=== PATIENT | female | born 1950 | race Caucasian/White ===

== ENCOUNTER 2017-01-26 09:17 | Day surgery (SDC) | payer MEDICARE, OTHER ==
[2017-01-21 12:09] VITALS: BMI 19.3
[~2017-01-26 09:17] MED LIST: LACTATED RINGERS 1,000 ML IV SCH
[2017-01-26 10:53] VITALS: TEMP 98.6
[2017-01-26] MEDS ORDERED: LIDOCAINE 1% 20 ML VIAL (10MG/ML) FOR IV START INTRADERMA ONE (11:09)
[2017-01-26] MEDS ORDERED: LIDOCAINE 1% INJ 10MG/ML (20 ML MDV) ONE (11:30)
[2017-01-26] MEDS ORDERED: PROPOFOL 10 MG/ML 20 ML VIAL IV ONE (11:30)
--- NOTE | 2017-01-26 11:47 | P.PCN ---
Date of Procedure: 01/26/17 Preoperative Diagnosis: Postoperative Diagnosis: Procedure(s) Performed: BRIEF HISTORY: Patient is a 66-year-old pleasant white female, scheduled for an elective colonoscopy as a part of evaluation of prior history of colon polyps. Her last colonoscopy was 5 years ago at [facility]. PROCEDURE PERFORMED: Colonoscopy with biopsy. PREOPERATIVE DIAGNOSIS: History of colon polyps. IV sedation per Anesthesia. PROCEDURE: After informed consent was obtained, the patient, was brought into the endoscopy unit. IV sedation was administered by Anesthesia under continuous monitoring. Digital rectal examination was normal. Initially the Olympus CF- 160 flexible video colonoscope was then inserted in the rectum, gradually advanced into the cecum without any difficulty. Careful examination was performed as the scope was gradually being withdrawn. Ileocecal valve and the appendiceal orifice were visualized and appeared normal. Prep was excellent. Mucosa of the cecum, ascending colon, transverse colon, descending colon, sigmoid colon, and rectum appeared normal. A 5 mm polyp was noted in the proximal rectum which was removed by biopsy. Scattered sigmoid diverticulosis seen. Retroflexion was performed in the rectum and no lesions were seen. The patient tolerated the procedure well. IMPRESSION: 5 mm proximal rectal polyp status post removal by biopsy Scattered sigmoid diverticulosis RECOMMENDATIONS: Findings of this examination were discussed with the patient as well as her family. She was advised to follow with the biopsy results. If the biopsy shows a tubular adenoma she can have a repeat colonoscopy in 5 years. Implants: Indications for Procedure: Operative Findings: Description of Procedure:
[2017-01-26 12:38] VITALS: BP 145/89; PULSE 71; RESP 18
== END 2017-01-26 12:51 | disposition home or self-care (01) ==
LOC: ORWHC2ENDO 09:17
PROVIDERS: ATTEND Internal Medicine Gastroenterology
DX: Z12.11 Encounter for screening for malignant neoplasm of colon (principal); K62.1 Rectal polyp; K57.30 Diverticulosis of large intestine without perforation or abscess without bleeding; K21.9 Gastro-esophageal reflux disease without esophagitis; Z86.010 Personal history of colon polyps; J44.9 Chronic obstructive pulmonary disease, unspecified; F17.200 Nicotine dependence, unspecified, uncomplicated; Z79.1 Long term (current) use of non-steroidal anti-inflammatories (NSAID); Z79.51 Long term (current) use of inhaled steroids; Z79.899 Other long term (current) drug therapy; Z88.2 Allergy status to sulfonamides; Z88.8 Allergy status to other drugs, medicaments and biological substances
CPT/HCPCS: 45380; 88305

== ENCOUNTER 2018-06-03 18:54 | Inpatient (IN) | payer MEDICARE, OTHER ==
[2018-06-03] MEDS ORDERED: SODIUM CHLORIDE 0.9% 500 ML 500 ML IV STA (19:01)
[2018-06-03] MEDS ORDERED: IPRATROPIUM 0.5 MG/2.5 ML NEBU INHALATION STA (19:01)
[2018-06-03] MEDS ORDERED: methylPREDNISolone SOD SUCCI 125 MG/2 ML VIAL IV STA (19:01)
[2018-06-03] MEDS ORDERED: SODIUM CHLORIDE 0.9% 1,000 ML IV STA ×3 (19:01→19:45)
[2018-06-03] MEDS ORDERED: ALBUTEROL NEBULIZED 2.5 MG/3 ML INHALATION STA (19:01)
[2018-06-03] MEDS ORDERED: ACETAMINOPHEN TAB 500 MG TAB PO STA (19:12)
[2018-06-03] MEDS ORDERED: IBUPROFEN 800 MG TAB PO STA (19:12)
--- NOTE | 2018-06-03 19:22 | ED ---
Fever HPI - General Chief Complaint: Fever Stated Complaint: Fever, Sinus Time Seen by Provider: 06/03/18 19:00 Source: patient, RN notes reviewed, old records reviewed Mode of arrival: ambulatory Limitations: no limitations - History of Present Illness Initial Comments: This is a 68-year-old female the ER for not feeling well. Patient states she's had bodyaches and fever 2 days, deathly worse and today. She does have underlying history of COPD. Complaining about shortness of breath cough. Patient's main complaint is body aches shakes fevers and sweating. No known significant sick contacts or recent travel history. Patient did have an inpatient hospitalization last year for similar symptoms secondary to pneumonia. Patient denies chest pain no abdominal pain no nausea vomiting or diarrhea MD Complaint: fever, weakness -: days(s) Temperature Source: subjective Associated Symptoms: chills, myalgias, shortness of breath Treatments Prior to Arrival: none - Related Data Home Medications Medication Instructions Recorded Confirmed ALPRAZolam [Xanax] 0.25 tab PO BID PRN 05/31/14 06/03/18 Tiotropium 18 Mcg/Puff [Spiriva] 1 puff IN RT-DAILY 05/31/14 06/03/18 Albuterol Nebulized [Ventolin 2.5 mg INHALATION RT-Q6H 01/21/17 06/03/18 Nebulized] Albuterol Sulfate [Proair Hfa] 1 - 2 puff INHALATION RT-Q4H PRN 01/21/17 Alendronate Sodium [Fosamax] 70 mg PO MO 01/21/17 06/03/18 Fluticasone Nasal [place] [Flonase 2 spray EA NOSTRIL BID 01/21/17 06/03/18 Nasal [place]] Fluticasone/Salmeterol [Advair 1 puff INHALATION RT-BID 01/21/17 06/03/18 500-50 Diskus] Lipase/Protease/Amylase [Zenpep Dr 75,000 units PO DIRECTED 01/21/17 06/03/18 25,000 Units Capsule] Omeprazole [PriLOSEC] 20 mg PO AC-BID 01/21/17 06/03/18 Gabapentin [Neurontin] 100 mg PO BID 06/01/17 06/03/18 Aspirin 325 mg PO DAILY 06/03/18 06/03/18 Atorvastatin [Lipitor] 10 mg PO HS 06/03/18 06/03/18 Calcium Carbonate [Calcium] 600 mg PO DAILY 06/03/18 06/03/18 Cholecalciferol [Vitamin D3] 1,000 unit PO DAILY 06/03/18 06/03/18 Multivitamins, Thera [Multivitamin 1 tab PO DAILY 06/03/18 06/03/18 (formulary)] Naproxen Sodium [Aleve] 220 mg PO DAILY 06/03/18 06/03/18 Previous Rx's Medication Instructions Recorded predniSONE 10 mg PO DAILY 16 Days #40 tab 06/03/17 Allergies Allergy/AdvReac Type Severity Reaction Status Date / Time guaifenesin [From Robitussin] AdvReac Severe Anaphylaxis Verified 06/03/18 21:25 propoxyphene napsylate AdvReac Severe Swelling Verified 06/03/18 21:25 [From Darvocet-N] Sulfa (Sulfonamide AdvReac Severe Swelling Verified 06/03/18 21:25 Antibiotics) Review of Systems ROS Statement: Those systems with pertinent positive or pertinent negative responses have been documented in the HPI. ROS Other: All systems not noted in ROS Statement are negative. Past Medical History Past Medical History: COPD, Fibromyalgia, GERD/Reflux, Osteoarthritis (OA) Additional Past Medical History / Comment(s): DDD WITH BACK PAIN, PANCREATITIS, STATES abdominal ANEURYSM THAT THE DR IS MONITORING. , STATES EPISODE OF IRREGULAR HEART BEAT AT DRS OFFICE. History of Any Multi-Drug Resistant Organisms: None Reported Past Surgical History: Back Surgery, Hysterectomy, Orthopedic Surgery Additional Past Surgical History / Comment(s): CLAIRE CARPAL TUNNEL. Past Anesthesia/Blood Transfusion Reactions: No Reported Reaction, Motion Sickness Past Psychological History: Anxiety Smoking Status: Former smoker Past Alcohol Use History: None Reported Past Drug Use History: None Reported - Past Family History Mother Family Medical History: Deep Vein Thrombosis (DVT) Father Family Medical History: Congestive Heart Failure (CHF), Diabetes Mellitus General Exam Limitations: no limitations General appearance: alert, in no apparent distress Head exam: Present: atraumatic, normocephalic, normal inspection Eye exam: Present: normal appearance, PERRL, EOMI. Absent: scleral icterus, conjunctival injection, periorbital swelling ENT exam: Present: normal exam, mucous membranes moist Neck exam: Present: normal inspection. Absent: tenderness, meningismus, lymphadenopathy Respiratory exam: Present: normal lung sounds bilaterally, wheezes. Absent: respiratory distress, rales, rhonchi, stridor Cardiovascular Exam: Present: regular rate, normal rhythm, normal heart sounds. Absent: systolic murmur, diastolic murmur, rubs, gallop, clicks GI/Abdominal exam: Present: soft, normal bowel sounds. Absent: distended, tenderness, guarding, rebound, rigid Extremities exam: Present: normal inspection, full ROM, normal capillary refill. Absent: tenderness, pedal edema, joint swelling, calf tenderness Back exam: Present: normal inspection Neurological exam: Present: alert, oriented X3, CN II-XII intact Psychiatric exam: Present: normal affect, normal mood Skin exam: Present: warm, dry, intact, normal color. Absent: rash Course Vital Signs 06/03/18 06/03/18 06/03/18 18:57 19:30 19:38 Temperature 99.8 F H 102.3 F H Pulse Rate 70 111 H Pulse Rate [ Pulse Oximetery ] Respiratory 20 20 20 Rate Blood Pressure 115/67 118/57 Blood Pressure [Left Arm] O2 Sat by Pulse 95 93 L Oximetry 06/03/18 06/03/18 06/03/18 19:43 19:52 20:00 Temperature 98.5 F Pulse Rate 108 H Pulse Rate [ 113 H 116 H Pulse Oximetery ] Respiratory 16 16 Rate Blood Pressure Blood Pressure 102/63 [Left Arm] O2 Sat by Pulse 92 L Oximetry 06/03/18 20:05 Temperature Pulse Rate 110 H Pulse Rate [ Pulse Oximetery ] Respiratory Rate Blood Pressure Blood Pressure [Left Arm] O2 Sat by Pulse Oximetry - Reevaluation(s) Reevaluation #1: 06/03/18 19:22 Medical record is reviewed Reevaluation #2: 06/03/18 19:22 Patient is improved with symptomatic therapy Medical Decision Making - Medical Decision Making 68 female the ER with fever cough or congestion positive pneumonia, will admit for IV antibiotics breathing treatments and monitoring of cardiopulmonary state - Lab Data Result diagrams: 06/03/18 19:22 06/04/18 09:35 Lab Results 06/03/18 06/03/18 06/03/18 Range/Units 19:22 19:22 19:22 WBC 12.6 H (3.8-10.6) k/uL RBC 4.64 (3.80-5.40) m/uL Hgb 15.3 (11.4-16.0) gm/dL Hct 45.3 (34.0-46.0) % MCV 97.5 (80.0-100.0) fL MCH 33.0 (25.0-35.0) pg MCHC 33.8 (31.0-37.0) g/dL RDW 12.9 (11.5-15.5) % Plt Count 183 (150-450) k/uL Neutrophils % 83 % Lymphocytes % 10 % Monocytes % 5 % Eosinophils % 1 % Basophils % 0 % Neutrophils # 10.4 H (1.3-7.7) k/uL Lymphocytes # 1.2 (1.0-4.8) k/uL Monocytes # 0.6 (0-1.0) k/uL Eosinophils # 0.1 (0-0.7) k/uL Basophils # 0.0 (0-0.2) k/uL PT (9.0-12.0) sec INR (<1.2) APTT (22.0-30.0) sec Sodium 137 (137-145) mmol/L Potassium 4.3 (3.5-5.1) mmol/L Chloride 105 (98-107) mmol/L Carbon Dioxide 23 (22-30) mmol/L Anion Gap 9 mmol/L BUN 15 (7-17) mg/dL Creatinine 0.90 (0.52-1.04) mg/dL Est GFR (CKD-EPI)AfAm 77 (>60 ml/min/1.73 sqM) Est GFR (CKD-EPI)NonAf 67 (>60 ml/min/1.73 sqM) Glucose 120 H (74-99) mg/dL Plasma Lactic Acid Bebo (0.7-2.0) mmol/L Calcium 9.1 (8.4-10.2) mg/dL Magnesium 1.9 (1.6-2.3) mg/dL Total Bilirubin 1.4 H (0.2-1.3) mg/dL AST 90 H (14-36) U/L ALT 88 H (9-52) U/L Alkaline Phosphatase 140 H (38-126) U/L Total Creatine Kinase 50 (30-135) U/L CK-MB (CK-2) 0.3 (0.0-2.4) ng/mL CK-MB (CK-2) Rel Index 0.6 Troponin I <0.012 (0.000-0.034) ng/mL NT-Pro-B Natriuret Pep pg/mL Total Protein 6.5 (6.3-8.2) g/dL Albumin 3.6 (3.5-5.0) g/dL Influenza Type A RNA (Not Detectd) Influenza Type B (PCR) (Not Detectd) 06/03/18 06/03/18 06/03/18 Range/Units 19:22 19:22 19:22 WBC (3.8-10.6) k/uL RBC (3.80-5.40) m/uL Hgb (11.4-16.0) gm/dL Hct (34.0-46.0) % MCV (80.0-100.0) fL MCH (25.0-35.0) pg MCHC (31.0-37.0) g/dL RDW (11.5-15.5) % Plt Count (150-450) k/uL Neutrophils % % Lymphocytes % % Monocytes % % Eosinophils % % Basophils % % Neutrophils # (1.3-7.7) k/uL Lymphocytes # (1.0-4.8) k/uL Monocytes # (0-1.0) k/uL Eosinophils # (0-0.7) k/uL Basophils # (0-0.2) k/uL PT 10.5 (9.0-12.0) sec INR 1.0 (<1.2) APTT 24.8 (22.0-30.0) sec Sodium (137-145) mmol/L Potassium (3.5-5.1) mmol/L Chloride (98-107) mmol/L Carbon Dioxide (22-30) mmol/L Anion Gap mmol/L BUN (7-17) mg/dL Creatinine (0.52-1.04) mg/dL Est GFR (CKD-EPI)AfAm (>60 ml/min/1.73 sqM) Est GFR (CKD-EPI)NonAf (>60 ml/min/1.73 sqM) Glucose (74-99) mg/dL Plasma Lactic Acid Bebo 1.5 (0.7-2.0) mmol/L Calcium (8.4-10.2) mg/dL Magnesium (1.6-2.3) mg/dL Total Bilirubin (0.2-1.3) mg/dL AST (14-36) U/L ALT (9-52) U/L Alkaline Phosphatase (38-126) U/L Total Creatine Kinase (30-135) U/L CK-MB (CK-2) (0.0-2.4) ng/mL CK-MB (CK-2) Rel Index Troponin I (0.000-0.034) ng/mL NT-Pro-B Natriuret Pep 1830 pg/mL Total Protein (6.3-8.2) g/dL Albumin (3.5-5.0) g/dL Influenza Type A RNA (Not Detectd) Influenza Type B (PCR) (Not Detectd) 06/03/18 Range/Units 19:29 WBC (3.8-10.6) k/uL RBC (3.80-5.40) m/uL Hgb (11.4-16.0) gm/dL Hct (34.0-46.0) % MCV (80.0-100.0) fL MCH (25.0-35.0) pg MCHC (31.0-37.0) g/dL RDW (11.5-15.5) % Plt Count (150-450) k/uL Neutrophils % % Lymphocytes % % Monocytes % % Eosinophils % % Basophils % % Neutrophils # (1.3-7.7) k/uL Lymphocytes # (1.0-4.8) k/uL Monocytes # (0-1.0) k/uL Eosinophils # (0-0.7) k/uL Basophils # (0-0.2) k/uL PT (9.0-12.0) sec INR (<1.2) APTT (22.0-30.0) sec Sodium (137-145) mmol/L Potassium (3.5-5.1) mmol/L Chloride (98-107) mmol/L Carbon Dioxide (22-30) mmol/L Anion Gap mmol/L BUN (7-17) mg/dL Creatinine (0.52-1.04) mg/dL Est GFR (CKD-EPI)AfAm (>60 ml/min/1.73 sqM) Est GFR (CKD-EPI)NonAf (>60 ml/min/1.73 sqM) Glucose (74-99) mg/dL Plasma Lactic Acid Bebo (0.7-2.0) mmol/L Calcium (8.4-10.2) mg/dL Magnesium (1.6-2.3) mg/dL Total Bilirubin (0.2-1.3) mg/dL AST (14-36) U/L ALT (9-52) U/L Alkaline Phosphatase (38-126) U/L Total Creatine Kinase (30-135) U/L CK-MB (CK-2) (0.0-2.4) ng/mL CK-MB (CK-2) Rel Index Troponin I (0.000-0.034) ng/mL NT-Pro-B Natriuret Pep pg/mL Total Protein (6.3-8.2) g/dL Albumin (3.5-5.0) g/dL Influenza Type A RNA Not Detected (Not Detectd) Influenza Type B (PCR) Not Detected (Not Detectd) - EKG Data -: EKG Interpreted by Me (EKG shows sinus tachycardia rate 170, CO 182, QRS 86, QTc 488) - Radiology Data Radiology results: report reviewed (Chest x-ray is positive for pneumonia), image reviewed Critical Care Time Critical Care Time: Yes Total Critical Care Time: 31 Disposition Clinical Impression: COPD with acute exacerbation, Pneumonia, Fever Disposition: ADMITTED IP TO THIS HOSP Condition: Fair Is patient prescribed a controlled substance at d/c from ED?: No
[2018-06-03 19:31] LABS: Basophils % (A) 0 %; Eosinophils # (A) 0.1 k/uL (0-0.7); Eosinophils % (A) 1 %; HCT 45.3 % (34.0-46.0); HGB 15.3 gm/dL (11.4-16.0); Lymphocytes # (A) 1.2 k/uL (1.0-4.8); Lymphocytes % (A) 10 %; MCHC 33.8 g/dL (31.0-37.0); MCV 97.5 fL (80.0-100.0); Mean Platelet Volume 7.1; Monocytes # (A) 0.6 k/uL (0-1.0); Monocytes % (A) 5 %; Neutrophils # (A) 10.4 k/uL (1.3-7.7); Neutrophils % (A) 83 %; Platelet Count 183 k/uL (150-450); RBC 4.64 m/uL (3.80-5.40); RDW 12.9 % (11.5-15.5); WBC 12.6 k/uL (3.8-10.6)
[2018-06-03] MEDS ORDERED: PNEUMONIA PROTOCOL UTILIZED 1 EACH MISC PO PRN (19:43)
[2018-06-03] MEDS ORDERED: AZITHROMYCIN 500 MG in SODIUM CHLORIDE 0.9% 250 ML IVPB STA (19:43)
[2018-06-03 19:47] LABS: Partial Thromboplastin Time 24.8 sec (22.0-30.0); Prothrombin Time 10.5 sec (9.0-12.0)
[2018-06-03 19:49] LABS: Albumin 3.6 g/dL (3.5-5.0); Calcium 9.1 mg/dL (8.4-10.2); Creatine Kinase 50 U/L (30-135); Magnesium 1.9 mg/dL (1.6-2.3); Potassium 4.3 mmol/L (3.5-5.1); Total Bilirubin 1.4 mg/dL (0.2-1.3); Total Protein 6.5 g/dL (6.3-8.2)
[2018-06-03 20:01] LABS: Creatine Kinase MB 0.3 ng/mL (0.0-2.4); Troponin I <0.012 ng/mL (0.000-0.034)
--- NOTE | 2018-06-03 20:01 | XR ---
EXAMINATION TYPE: XR chest 1V portable DATE OF EXAM: 06/03/2018 COMPARISON: 06/10/2017 HISTORY: Short of breath TECHNIQUE: Single frontal view of the chest is obtained. FINDINGS: There is some patchy airspace infiltrate in the right lower lobe. There is coarse intersti tial infiltrate also a left lower lobe. There is no heart failure. There are chest leads. There is sl ight blunting of the costophrenic angles. IMPRESSION: There is new bilateral lower lobe pneumonia compared to old exam. This appears worse on the right side. Pleural reaction and fluid increased compared to old exam. No heart failure.
[2018-06-03] MEDS ORDERED: ALPRAZolam 0.25 MG TAB PO PRN (21:14)
[2018-06-03] MEDS ORDERED: ACETAMINOPHEN TAB 500 MG TAB PO PRN (21:22)
[2018-06-03 21:24] VITALS: BMI 18.6
--- NOTE | 2018-06-03 22:07 | HP ---
HISTORY AND PHYSICAL Mrs. Pierre is a 68-year-old female who over the last 24 hours has been increasingly feeling weak, feverishness, cough with some whitish yellow discolored phlegm, no hemoptysis, increasing shortness of breath also associated with this, some diffuse body aches and fevers also associated with this. The patient also states that a few days previously she fell and hurt her left chest wall and this continued to bother her breathing but did seem to get better until these new symptoms developed yesterday. No actual vomiting or diarrhea was noted, no angina type chest pain. The patient does have history of severe COPD and previous smoking. OTHER PAST MEDICAL HISTORY: As mentioned, positive for underlying COPD and previous smoking history. Apparently she has quit smoking about a year and a half ago. She also has history of hyperlipidemia. She has had osteoarthritis of the lumbar spine. Gastroesophageal reflux, osteoporosis, and anxiety. MEDICATION ALLERGIES: INCLUDE SULFA ANTIBIOTICS AND ROBITUSSIN WITH MUCINEX. HOME MEDICATIONS: 1. Include prednisone 10 mg daily. 2. Spiriva 18 mcg 1 puff daily. 3. Prilosec 20 mg twice a day. 4. Naproxen 220 mg daily. 5. Theragran multiple vitamin daily. 6. She is on Zenpep 87499 units capsules 3 capsules before meals. This contains lipase/protease/amylase for pancreatic insufficiency. 7. Neurontin 100 mg twice a day. 8. Advair 500-50 Diskus 1 inhalation twice a day. 9. Nasal spray Flonase 2 sprays in each nostril twice a day. 10.Vitamin D3 a 1000 units daily. 11.Calcium carbonate 600 mg daily. 12.Atorvastatin 10 mg q.h.s. 13.Aspirin 325 mg daily. 14.Fosamax 70 mg on Mondays. 15.ProAir 1-2 inhalations q.4-6 hours p.r.n. 16.Ventolin nebulized 2.5 mg q.6 hours. 17.Alprazolam 0.25 twice a day as needed for anxiety. REVIEW OF SYSTEMS: As mentioned in history of present illness. She denies any unusual visual disturbances. No problems with angina type chest pain. No new pleurisy type pains. No nausea, vomiting. No abdominal pain. No urinary or bowel symptoms. No unusual leg edema. SURGICAL HISTORY: She has had previous lumbar surgeries. Also she has had previous hysterectomy and bilateral carpal tunnel. FAMILY HISTORY: Positive for seizures in her brother and also diabetes in her mother and another brother. SOCIAL HISTORY: She is a former smoker. Lives locally in [place]. There is no history of any excessive alcohol usage. PHYSICAL EXAMINATION: She is lying on the stretcher in the emergency room. No acute distress, but appears somewhat anxious. VITAL SIGNS: Temperature of 99.3 with a pulse of 110, respirations of 22. Her initial pulse ox was low at 88 that has increased on nasal oxygen to 91. Head is atraumatic. Extraocular movements are intact. NECK: Supple. No adenopathy, thyromegaly detected. LUNGS: Diffuse rales and some inspiratory and expiratory diffuse wheezing. Heart tones revealed a regular rhythm. No definite murmurs. ABDOMEN: Soft and nontender. Extremities revealed no edema. Neurologically, she is alert and oriented. Cranial nerves intact. No focal weakness noted. LABORATORY TESTING: Revealed a white count of 12.6, hemoglobin of 15.3, and a platelet count of 183. Her INR was 1.0. Chemistries revealed a sodium 137, potassium 4.3, CO2 content of 23, BUN was 15 with a creatinine 0.9, giving her a GFR of 67. Blood sugar random was 120. Lactic acid level was 1.5. Total bilirubin was slightly elevated at 1.4 with an AST of 90 and ALT of 88, alkaline phosphatase was 140. Troponin was less than 0.012. BNP was 1830. Albumin 3.5. Influenza A and B were not detected. EKG shows a sinus tachycardia with fusion complexes, no definite acute ischemic changes, but some poor R waves in V2, V3, and the chest x-ray apparently shows new bilateral infiltrates consistent with pneumonia in the lower lobes. Apparently x-ray appeared worse on the right side. No definite CHF was noted on chest x-ray. IMPRESSION: 1. Bilateral basilar pneumonias with exacerbation of chronic obstructive pulmonary disease with hypoxia and acute on chronic respiratory failure in a patient who has severe underlying chronic obstructive pulmonary disease and previous smoking history. The patient also has elevated liver function test, actual etiology unknown at this time, could be related to underlying infection and pneumonia. The patient does have underlying osteoarthritis of the lumbar spine and previous surgery. 2. History of hyperlipidemia. 3. Gastroesophageal reflux. 4. Osteoporosis. 5. Pancreatic insufficiency by history, on enzyme replacement therapy. At this point, the plans are for initiation of antibiotics, respiratory treatments, corticosteroids, consultation with Pulmonary Medicine. Further recommendations and treatment pending clinical response and results of above as discussed with the patient and family at bedside. MMESTEPHANIEL / ESTEFANYN: [id number] / MTDMary
[2018-06-03] MEDS: SODIUM CHLORIDE 0.9% 1,000 ML IV SCH (22:22)
[2018-06-03 22:52] LABS: Appearance,Urine Clear (Clear); Bilirubin,Urine Negative (Negative); Blood,Urine Negative (Negative); Color,Urine Yellow; Glucose,Urine (UA) Negative (Negative); Ketones,Urine 1+ (Negative); Leukocyte Esterase,Urine Negative (Negative); Nitrite,Urine Negative (Negative); PH, Urine 5.5 (5.0-8.0); Protein,Urine Trace (Negative); Specific Gravity,Urine 1.007 (1.001-1.035); Urobilinogen,Urine <2.0 mg/dL (<2.0)
[2018-06-03] MEDS ORDERED: AZITHROMYCIN 500 MG in SODIUM CHLORIDE 0.9% 250 ML IVPB ONE (23:00)
[2018-06-04] MEDS: methylPREDNISolone SOD SUCCI 125 MG/2 ML VIAL IV SCH ×3 (00:30→16:29)
[2018-06-04] MEDS: PANTOPRAZOLE 40 MG TABLET PO SCH ×2 (06:59→16:30)
[2018-06-04] MEDS: SODIUM CHLORIDE 0.9% 1,000 ML IV SCH ×3 (07:01→20:43)
[2018-06-04] MEDS: IPRATROPIUM-ALBUTEROL 3 ML NEB INHALATION SCH ×5 (08:11→21:14)
--- NOTE | 2018-06-04 08:21 | US ---
EXAMINATION TYPE: US gallbladder DATE OF EXAM: 06/04/2018 COMPARISON: CXR, CT 2007 CLINICAL HISTORY: [facility]. Elevated LFT's EXAM MEASUREMENTS: Liver Length: 14.7 cm Gallbladder Wall: 0.2 cm CBD: 0.5 cm Right Kidney: 9.4 x 4.0 x 4.7 cm Pancreas: wnl Liver: wnl Gallbladder: Slightly contracted, pt states she is NPO Evidence for sonographic Guillermo's sign: No CBD: wnl Right Kidney: wnl, lower pole gassed out Incidental finding distal aorta AAA= 4.4 cm transverse measurement IMPRESSION: Abdominal aortic aneurysm. Otherwise unremarkable study.
--- NOTE | 2018-06-04 08:38 | XR ---
EXAMINATION TYPE: XR chest 2V DATE OF EXAM: 06/04/2018 COMPARISON: 06/03/2018 HISTORY: Shortness of breath TECHNIQUE: Frontal and lateral views of the chest are obtained. FINDINGS: Scattered senescent parenchymal changes noted. Hyperinflation compatible with COPD. No evidence for infiltrate. No evidence for atelectasis. Heart size is stable. Mediastinal structures are stable and grossly unremarkable. No evidence for hilar prominence. Degenerative changes dorsal spine. IMPRESSION: 1. No evidence for acute pulmonary disease.
[2018-06-04] MEDS: FLUTICASONE 50MCG/SPRAY NASAL 16GM EA NOSTRIL SCH ×2 (09:39→20:38)
[2018-06-04] MEDS: ASPIRIN 325 MG TAB PO SCH (09:42)
[2018-06-04] MEDS: CALCIUM CARBONATE 500 MG CHEWABLE PO SCH (09:42)
[2018-06-04] MEDS: GABAPENTIN 100 MG CAP PO SCH ×2 (09:42→20:43)
[2018-06-04] MEDS: LIPASE 5,000/PROTEASE 17,000/AMYLASE 24,000 PO SCH (09:43)
[2018-06-04] MEDS: ENOXAPARIN 40 MG/0.4 ML SYRINGE SQ SCH (09:43)
--- NOTE | 2018-06-04 09:50 | P.PN ---
Progress Note - Text Patient is a 70-year-old female who presented to the yesterday and admitted through the emergency room with weakness, cough and fevers associated with shortness of breath. Patient does have underlying severe COPD and x-rays yesterday were read as bi-basilar pneumonias. Patient has been treated with azithromycin and Rocephin. This morning she is sitting up in bed. States she feels somewhat better. Has diminished shortness of breath and cough. Vital signs reveal temperature of 97.4 with a pulse of 72 and respirations 16. Blood pressure 109/63 and she is 92% saturated on 2 L nasal cannula. Lungs are generally diminished but improvement in wheezing and rales that were present yesterday. Heart tones were regular. No unusual edema. No focal neurological deficits. Laboratory Comprehensive metabolic panel is pending. Yesterday she did have some elevated liver function tests. Ultrasound of the abdomen Gallbladder was unremarkable. Documentation of known aortic aneurysm at 4.4 cm. Chest x-ray Shows improvement from her chest x-ray reported on admission. Impression and plans Admitted with bibasilar pneumonias on initial chest x-ray with good improvement on present antibiotics. Respiratory treatments. Corticosteroids Likely with continued clinical improvement possible discharge over the next 24 hours. Consult has been placed for pulmonary medicine to see. We'll await for any of their further recommendations. We'll taper down methylprednisolone
[2018-06-04 10:15] LABS: ALT 61 U/L (9-52); AST 34 U/L (14-36); Albumin 3.1 g/dL (3.5-5.0); Alkaline Phosphatase 101 U/L (38-126); Anion Gap 9 mmol/L; Blood Urea Nitrogen 15 mg/dL (7-17); Calcium 8.5 mg/dL (8.4-10.2); Carbon Dioxide 20 mmol/L (22-30); Chloride 114 mmol/L (98-107); Glucose 254 mg/dL (74-99); Sodium 143 mmol/L (137-145); Total Bilirubin 0.5 mg/dL (0.2-1.3); Total Protein 5.6 g/dL (6.3-8.2)
[2018-06-04] MEDS ORDERED: MULTIVITAMINS, THERA 1 EACH TAB PO SCH (12:00)
--- NOTE | 2018-06-04 13:39 | CONS ---
CONSULTATION DATE OF SERVICE: 06/04/2018 This is a patient who presented to the emergency room with complaints of not feeling well. She thought initially she had a sinus infection. She had body aches and she had fever. She had chills. She started complaining of shortness of breath, chest tightness, wheezing, cough and yellow phlegm production. For that reason she came in to be evaluated. Currently, she is feeling a bit better. She is over in the pediatric unit. She states her breathing is improved. She still feels congested in the facial and head area. She denies any chest pain or chest discomfort. There is no nausea, vomiting or diarrhea. She sees one of my partners in the office for her underlying COPD. The patient had a chest x-ray on the , which showed possible bilateral lower lobe infiltrates. Interestingly, the repeat chest x-ray done the following day shows both infiltrates have cleared. It calls in the question whether or not this is true pneumonia versus just atelectasis. MEDICATIONS: Include Xanax, Spiriva, albuterol, Fosamax, Flonase nasal spray, high-dose Advair, Zenpep, Prilosec, Lipitor, and Neurontin. She previously was on some Levaquin and prednisone. ALLERGIES: Include ROBITUSSIN, DARVOCET AND SULFA ANTIBIOTICS. PAST MEDICAL HISTORY: Includes significant COPD, fibromyalgia, GERD, osteoarthritis, anxiety, osteoporosis, hyperlipidemia, neuropathy and pancreatic insufficiency. She also has a history of an aneurysm that doctors are monitoring. She also has degenerative disc disease as well. SURGICAL HISTORY: Includes back surgery, hysterectomy, and bilateral carpal tunnel surgery. SOCIAL HISTORY: Positive for previous tobacco use. She does not smoke currently. Denies any illicit drug use or alcohol use. FAMILY HISTORY: Positive for deep venous thrombosis. OCCUPATIONAL HISTORY: Noncontributory. REVIEW OF SYSTEMS: CONSTITUTIONAL: Fever. NEUROLOGIC: Negative. HEENT: Nasal congestion, facial pain, symptoms and signs of sinusitis. CARDIOVASCULAR: Negative. PULMONARY: Shortness of breath, chest tightness, wheezing, cough, chest congestion and phlegm production. GI: Negative. : Negative. RHEUMATOLOGIC: Negative. IMMUNOLOGIC: Negative. ENDOCRINOLOGIC: Negative. DERMATOLOGIC: Negative. PHYSICAL EXAMINATION: Current vital signs are reviewed temperature 97.4, heart rate 72, respiratory rate 16, blood pressure 109/63, mean 78 and 2 L saturation 94%. Appears in no acute distress. HEENT examination is grossly unremarkable. Mucous membranes are moist. No oral lesions. Neck is supple. Full range of motion. No adenopathy, thyromegaly or neck vein distention. Cardiovascular examination reveals regular rhythm and rate. Heart rate in mid 70s. It is regular. S1, S2 normal. Lungs reveal some coarse expiratory rhonchi. Breath sounds are diminished throughout. There is no crackles. Breath sounds are equal bilaterally. There is prolongation on forced maneuver. Abdomen is soft. Bowel sounds are heard. Extremities are intact. No cyanosis, clubbing, or edema. Skin without rash. Neurologic examination is brief but nonfocal. White count 12.6, hemoglobin 15.3, hematocrit 45.3, platelet count normal. Sodium and potassium normal. Chloride 114, CO2 of 20, anion gap is 9. BUN and creatinine were 15 and 0.66. Electrolytes consistent with very mild non-anion gap hyperchloremic metabolic acidosis. Urine is looked at. It is normal. Influenza studies are negative. Chest x-rays appear to show some bibasilar infiltrates on the but a relatively normal chest x-ray on the 30. Medications are reviewed. She is on appropriate medications including Zithromax, ceftriaxone, DuoNebs, Solu-Medrol and Symbicort. ASSESSMENT: 1. Chronic obstructive pulmonary disease exacerbation complicated by purulent tracheobronchitis and possible bronchial pneumonia. 2. History of previous heavy tobacco use. 3. History of anxiety. 4. Osteoporosis. 5. Degenerative joint disease. 6. Pancreatic exocrine insufficiency. 7. Gastroesophageal reflux disease. 8. Hyperlipidemia. 9. History of neuropathy. 10.Degenerative disc disease with chronic back pain. PLAN: The patient's medications are appropriate. She is on short-acting beta agonist, short- acting muscarinic antagonist, long-acting beta agonist, inhaled corticosteroids, systemic corticosteroids and antibiotics. Hopeful discharge in next 24-48 hours. We will continue to follow. Prognosis is guarded. MMODL / IJN: [id number] /
[2018-06-04] MEDS: SYMBICORT 160-4.5 MCG INHALER INHALATION SCH (16:26)
[2018-06-04] MEDS: IPRATROPIUM 0.5 MG/2.5 ML NEBU INHALATION SCH ×2 (16:26→19:20)
[2018-06-04] MEDS ORDERED: ATORVASTATIN 10 MG TAB PO SCH (21:00)
[2018-06-04] MEDS ORDERED: AZITHROMYCIN 500 MG in SODIUM CHLORIDE 0.9% 250 ML IVPB SCH (23:00)
[2018-06-05] MEDS: methylPREDNISolone SOD SUCCI 125 MG/2 ML VIAL IV SCH ×2 (00:42→08:08)
[2018-06-05] MEDS: SYMBICORT 160-4.5 MCG INHALER INHALATION SCH (06:45)
[2018-06-05] MEDS: IPRATROPIUM 0.5 MG/2.5 ML NEBU INHALATION SCH (06:45)
[2018-06-05] MEDS: PANTOPRAZOLE 40 MG TABLET PO SCH (06:46)
[2018-06-05] MEDS: IPRATROPIUM-ALBUTEROL 3 ML NEB INHALATION SCH ×2 (07:43→11:44)
--- NOTE | 2018-06-05 08:02 | P.DS ---
Providers Date of admission: 06/03/18 19:43 Attending physician: Shemar Dumont The patient is a 68-year-old female who presented and was noted on June 03 with shortness of breath and cough with production of some yellowish discolored phlegm. Patient felt weak and shaky. O2 saturation was 88 in the emergency room. Patient does have a previous history of smoking and severe COPD. Other laboratory testing on admission revealed a white count of 12.6, hemoglobin 15.3 and platelet count 183. INR was 1.0. Sodium was 137 with potassium 4.3. CO2 content of 23. BUN of 15 with creatinine 0.9 giving her GFR 67. Random blood sugar was 120. Lactic acid levels 1.5. Patient did have some elevated liver function tests on presentation with an AST of 90, ALT of 88 and alk phos of 140. These decreased with subsequent competence a metabolic panel. Influenza a and B were negative. Chest x-ray was read as positive for bilateral lower lobe pneumonias. Hospital course The patient was admitted and placed on IV antibiotics along with corticosteroids and respiratory treatments. She was seen by pulmonology Dr. Galeana and please refer to his consultation. Patient improved with also clearing of her chest x-ray subsequently. Patient was able to be ambulated. O2 saturations remained in the 90s. And she clinically did well. Today on examination her vital signs are stable. She does have a mild end expiratory wheeze at the left base. Otherwise lungs are clear although generally diminished from her COPD. At this time plans are to discharge to home. She is to continue previous home medications. Finishing course of azithromycin 250 mg daily for 5 more days to be sent to her [facility] pharmacy along with short course of prednisone taper over the next 6 days. Continue her previous home medications that include Spiriva 18 g, 1 puff daily Prilosec 20 mg twice a day Naproxen 220 mg daily Multiple vitamin daily Neurontin 100 mg twice a day Advair 500-50 one inhalation twice a day Flonase nasal 2 sprays in each nostril twice a day Vitamin D3 at thousand units daily Calcium carbonate 600 mg daily Aspirin 325 mg daily Fosamax 70 mg daily Albuterol sulfate 1-2 inhalations every 4 hours when necessary Albuterol nebulizer respiratory treatments 2.5 mg every 6 hours Alprazolam 0.25 twice a day when necessary anxiety. Office follow-up with myself over the next 2-5 days. Pulmonary medicine follow-up. Gradual increase in activities as tolerated. Diet as tolerated. Final discharge diagnoses 1. Exacerbation of underlying COPD with bilateral lower lobe pneumonias associated with acute on chronic respiratory failure with pO2 sitting in the 80s on presentation. 2. Severe COPD and previous smoking history 3. Hyperlipidemia 4. Gastroesophageal reflux 5. Osteoarthritis of the lumbar spine 6. Anxiety Consults: 06/03/18 19:43 Consult Physician Routine Consulting Provider: Raphael Belcher Consult Reason/Comments: known Do you want consulting provider notified?: Yes Primary care physician: Shemar Dumont Patient Condition at Discharge: Fair Plan - Discharge Summary Discharge Rx Participant: Yes New Discharge Prescriptions: No Action ALPRAZolam [Xanax] 0.25 tab PO BID PRN PRN Reason: Anxiety Tiotropium 18 Mcg/Puff [Spiriva] 1 puff IN RT-DAILY Albuterol Nebulized [Ventolin Nebulized] 2.5 mg INHALATION RT-Q6H Albuterol Sulfate [Proair Hfa] 1 - 2 puff INHALATION RT-Q4H PRN PRN Reason: Shortness Of Breath Omeprazole [PriLOSEC] 20 mg PO AC-BID Fluticasone/Salmeterol [Advair 500-50 Diskus] 1 puff INHALATION RT-BID Fluticasone Nasal [place] [Flonase Nasal [place]] 2 spray EA NOSTRIL BID Lipase/Protease/Amylase [Zenpep Dr 25,000 Units Capsule] 75,000 units PO DIRECTED Alendronate Sodium [Fosamax] 70 mg PO MO Gabapentin [Neurontin] 100 mg PO BID predniSONE 10 mg PO DAILY 16 Days #40 tab Multivitamins, Thera [Multivitamin (formulary)] 1 tab PO DAILY Aspirin 325 mg PO DAILY Cholecalciferol [Vitamin D3] 1,000 unit PO DAILY Calcium Carbonate [Calcium] 600 mg PO DAILY Atorvastatin [Lipitor] 10 mg PO HS Naproxen Sodium [Aleve] 220 mg PO DAILY Discharge Medication List ALPRAZolam [Xanax] 0.25 tab PO BID PRN 05/31/14 [History] Tiotropium 18 Mcg/Puff [Spiriva] 1 puff IN RT-DAILY 05/31/14 [History] Albuterol Nebulized [Ventolin Nebulized] 2.5 mg INHALATION RT-Q6H 01/21/17 [ History] Albuterol Sulfate [Proair Hfa] 1 - 2 puff INHALATION RT-Q4H PRN 01/21/17 [ History] Alendronate Sodium [Fosamax] 70 mg PO MO 01/21/17 [History] Fluticasone Nasal [place] [Flonase Nasal [place]] 2 spray EA NOSTRIL BID 01/21/17 [ History] Fluticasone/Salmeterol [Advair 500-50 Diskus] 1 puff INHALATION RT-BID 01/21/17 [History] Lipase/Protease/Amylase [Zenpep Dr 25,000 Units Capsule] 75,000 units PO DIRECTED 01/21/17 [History] Omeprazole [PriLOSEC] 20 mg PO AC-BID 01/21/17 [History] Gabapentin [Neurontin] 100 mg PO BID 06/01/17 [History] predniSONE 10 mg PO DAILY 16 Days #40 tab 06/03/17 [Rx] Aspirin 325 mg PO DAILY 06/03/18 [History] Atorvastatin [Lipitor] 10 mg PO HS 06/03/18 [History] Calcium Carbonate [Calcium] 600 mg PO DAILY 06/03/18 [History] Cholecalciferol [Vitamin D3] 1,000 unit PO DAILY 06/03/18 [History] Multivitamins, Thera [Multivitamin (formulary)] 1 tab PO DAILY 06/03/18 [History ] Naproxen Sodium [Aleve] 220 mg PO DAILY 06/03/18 [History] Follow up Appointment(s)/Referral(s): Tyrone Parrish DO [REFERRING] - 1-2 days
[2018-06-05] MEDS: LIPASE 5,000/PROTEASE 17,000/AMYLASE 24,000 PO SCH (08:07)
[2018-06-05] MEDS: ASPIRIN 325 MG TAB PO SCH (08:07)
[2018-06-05] MEDS: ENOXAPARIN 40 MG/0.4 ML SYRINGE SQ SCH (08:08)
[2018-06-05] MEDS: CALCIUM CARBONATE 500 MG CHEWABLE PO SCH (08:08)
[2018-06-05] MEDS: FLUTICASONE 50MCG/SPRAY NASAL 16GM EA NOSTRIL SCH (08:08)
[2018-06-05] MEDS: GABAPENTIN 100 MG CAP PO SCH (08:21)
[2018-06-05 09:05] VITALS: BP 124/76; RESP 16; TEMP 98.2
[2018-06-05 11:50] VITALS: PULSE 96
--- NOTE | 2018-06-05 12:24 | P.PN ---
Subjective Progress Note Date: 06/05/18 Principal diagnosis: Chronic obstructive pulmonary disease exacerbation complicated by purulent tracheobronchitis and possible bronchial pneumonia This is a 68-year-old white female patient of Dr. Elena, who came in to the hospital on 06/03/2018 for evaluation of worsening shortness of breath, sinus infection, body aches, fever and chills. Patient was having chest tightness, wheezing, cough and yellow phlegm production. Chest x-ray showed a possible bilateral lower lobe infiltrates, but follow-up chest x-ray showed clearing of both infiltrates, suggesting the possibility of atelectasis rather than pneumonic infiltrates. Blood culture showed no growth at the 24-hour kathleen, patient's last episode of fever was on 06/03/2018 at 7:30 in the evening. She has been afebrile since. No chills, currently on 2 L per nasal cannula pulse ox is 92%. She states she is feeling much better. Breathing easier, she is on Rocephin and Zithromax, IV steroids, nebulized bronchodilators. She follows with Dr. Belcher in the pulmonary clinic. She wears oxygen at 2 L on as- needed basis at home. Her baseline FEV1 was 38% of predicted. Patient is an ex -smoker. Today's labs have been reviewed, showed sodium of 143, potassium is 4.0, chloride is 114, CO2 is 20, BUN is 15 and creatinine 0.6. Influenza screen was negative, urinalysis was not infected. Objective - Vital Signs Vital signs: Vital Signs Temp 98.2 F 06/05/18 08:50 Pulse 96 06/05/18 11:50 Resp 16 06/05/18 08:50 BP 124/76 06/05/18 08:50 Pulse Ox 92 L 06/05/18 08:50 Intake & Output 06/04/18 06/05/18 06/05/18 18:59 06:59 18:59 Intake Total 350 500 Balance 350 500 Weight 47.627 kg Intake: Oral 350 500 Other: Voiding Method Toilet # Voids 2 1 # Bowel Movements 1 - Exam GENERAL EXAM: Alert, pleasant 68-year-old white female comfortable in no apparent distress. HEAD: Normocephalic/atraumatic. EYES: Normal reaction of pupils, equal size. Conjunctiva pink, sclera white. NOSE: Clear with pink turbinates. THROAT: No erythema or exudates. NECK: No masses, no JVD, no thyroid enlargement, no adenopathy. CHEST: No chest wall deformity. Symmetrical expansion. LUNGS: Equal air entry with scattered wheezes. CVS: Regular rate and rhythm, normal S1 and S2, no gallops, no murmurs, no rubs ABDOMEN: Soft, nontender. No hepatosplenomegaly, normal bowel sounds, no guarding or rigidity. EXTREMITIES: No clubbing, no edema, no cyanosis, 2+ pulses and upper and lower extremities. MUSCULOSKELETAL: Muscle strength and tone normal. SPINE: No scoliosis or deformity SKIN: No rashes CENTRAL NERVOUS SYSTEM: Alert and oriented -3. No focal deficits, tone is normal in all 4 extremities. PSYCHIATRIC: Alert and oriented -3. Appropriate affect. Intact judgment and insight. - Labs CBC & Chem 7: 06/03/18 19:22 06/04/18 09:35 Labs: Microbiology - Last 24 Hours (Table) 06/03/18 19:22 Blood Culture - Preliminary Blood No Growth after 24 hours Assessment and Plan Plan: Assessment: #1. Acute exacerbation of chronic obstructive pulmonary disease complicated by purulent tracheobronchitis. Initial chest x-ray showed a possibility of bilateral lower lobe infiltrates, subsequent chest x-ray showed clearing of the infiltrates, suggesting possibility of atelectasis #2. History of previous tobacco use #3. Advanced COPD with chronic hypoxemic respiratory failure, with a baseline FEV1 of 38% predicted consistent with stage III #4. Pancreatic exocrine insufficiency #5. GERD #6. Hyperlipidemia #7. Neuropathy #8. Degenerative disc disease with chronic back pain Plan: Patient is stable for discharge home today perspective, she can complete a seven -day course of oral Levaquin, prednisone taper, she has albuterol nebulized treatments at home, she can continue on her Advair, pro-air, and Spiriva. She is to see Dr. Belcher in the office next week. I performed a history & physical examination of the patient and discussed their management with my nurse practitioner, Floresita Stark. I reviewed the nurse practitioner's note and agree with the documented findings and plan of care. Lung sounds are positive for scattered wheezes. The findings and the impression was discussed with the patient. I attest to the documentation by the nurse practitioner. Time with Patient: Less than 30
== END 2018-06-05 12:25 | disposition home or self-care (01) | DRG 193 ==
LOC: EC 18:54 → 6PED 19:43
PROVIDERS: ADMIT Internal Medicine; ATTEND Internal Medicine
DX: J18.9 Pneumonia, unspecified organism (principal); J96.21 Acute and chronic respiratory failure with hypoxia; J44.0 Chronic obstructive pulmonary disease with (acute) lower respiratory infection; J44.1 Chronic obstructive pulmonary disease with (acute) exacerbation; Z87.891 Personal history of nicotine dependence; F41.9 Anxiety disorder, unspecified; G62.9 Polyneuropathy, unspecified; G89.29 Other chronic pain; K21.9 Gastro-esophageal reflux disease without esophagitis; K86.89 Other specified diseases of pancreas; M51.36 Other intervertebral disc degeneration, lumbar region; M47.816 Spondylosis without myelopathy or radiculopathy, lumbar region; E78.5 Hyperlipidemia, unspecified; M79.7 Fibromyalgia; M81.0 Age-related osteoporosis without current pathological fracture; Z79.82 Long term (current) use of aspirin; Z79.83 Long term (current) use of bisphosphonates; Z82.49 Family history of ischemic heart disease and other diseases of the circulatory system; Z90.710 Acquired absence of both cervix and uterus; Z83.3 Family history of diabetes mellitus; R94.5 Abnormal results of liver function studies; Z88.5 Allergy status to narcotic agent; Z88.2 Allergy status to sulfonamides; Z88.8 Allergy status to other drugs, medicaments and biological substances; Z83.2 Family history of diseases of the blood and blood-forming organs and certain disorders involving the immune mechanism; Z79.52 Long term (current) use of systemic steroids; Z79.899 Other long term (current) drug therapy; Z82.0 Family history of epilepsy and other diseases of the nervous system
CPT/HCPCS: 36415; 71045; 71046; 76705; 80053; 81003; 82550; 82553; 83605; 83735; 83880; 84484; 85025; 85610; 85730; 87040; 87502; 93005; 94640; 94644; 94760; 96361; 96374; 99285

== ENCOUNTER → 2019-02-01 | Outpatient (CLI) | payer MEDICARE, OTHER ==
--- NOTE | 2019-02-01 08:38 | US ---
EXAMINATION TYPE: US abdomen limited DATE OF EXAM: 02/01/2019 COMPARISON: US 2018 CLINICAL HISTORY: K86.1 Other chronic pancreatitis. History of pancreatitis EXAM MEASUREMENTS: Liver Length: 14.2 cm Gallbladder Wall: 0.1 cm CBD: 0.3 cm Right Kidney: 10.0 x 3.8 x 5.2 cm Pancreas: Inhomogeneous. No peripancreatic fluid collection is seen. Liver: wnl Gallbladder: wnl Evidence for sonographic Guillermo's sign: no CBD: wnl Right Kidney: wnl IMPRESSION: Pancreatic parenchymal inhomogeneity relates to the patients known to pancreatitis. No pe ripancreatic fluid collection is seen.
--- NOTE | 2019-02-01 08:43 | US ---
EXAMINATION TYPE: US duplex aorta DATE OF EXAM: 02/01/2019 COMPARISON: US 2018 CLINICAL HISTORY: K86.1 Other chronic pancreatitis. History AAA EXAM MEASUREMENTS: Abdominal Aorta: Proximal: 2.5 x 2.5cm Mid: 2.3 x 2.1cm Distal: 3.3 x 4.4cm Right Iliac: 1.1 x 0.9cm Left Iliac: 1.0 x 0.9cm Distal aorta AAA measuring 3.3 cm in anterior posterior dimension, 4.4 cm lesion transverse dimension and 4.5 cm in craniocaudal dimension. Moderate atherosclerosis throughout the abdominal aorta. IMPRESSION: Distal abdominal aortic aneurysm measures 3.3 x 4.4 x 4.5 cm in anterior posterior by tra nsverse by craniocaudal dimension.
== END | disposition home or self-care (01) ==
LOC: RADUSWWP 07:30
PROVIDERS: ATTEND Family Medicine
DX: I71.4 Abdominal aortic aneurysm, without rupture (principal); K86.1 Other chronic pancreatitis
CPT/HCPCS: 76705; 93979

== ENCOUNTER 2021-01-14 15:40 | Emergency (ER) | payer MEDICARE, OTHER ==
[2021-01-14 15:49] VITALS: RESP 20
--- NOTE | 2021-01-14 17:28 | XR ---
EXAMINATION TYPE: XR chest 2V DATE OF EXAM: 01/14/2021 COMPARISON: 06/16/2018. HISTORY: Cough. TECHNIQUE: Frontal and lateral views of the chest are obtained. FINDINGS: There is no focal air space opacity, pleural effusion, or pneumothorax seen. The cardiac silhouette size is within normal limits. The osseous structures are intact. IMPRESSION: No acute cardiopulmonary process.
--- NOTE | 2021-01-14 17:40 | ED ---
General Adult HPI - General Chief complaint: Upper Respiratory Infection Stated complaint: SOB Time Seen by Provider: 01/14/21 16:01 Source: patient, RN notes reviewed Mode of arrival: ambulatory Limitations: no limitations - History of Present Illness Initial comments: Patient is a 70-year-old female presents to emergency department complaining of a cough productive of some yellow phlegm for the past several days. [facility]. She denied any other issues or complaints at this time. She was well-appearing 70-year-old female in no apparent distress or pain. She denied any chest pain shortness of breath headache nausea vomiting diarrhea constipation fever fatigue chills. - Related Data Home Medications Medication Instructions Recorded Confirmed ALPRAZolam [Xanax] 0.25 tab PO BID PRN 05/31/14 06/03/18 Tiotropium 18 Mcg/Puff [Spiriva] 1 puff IN RT-DAILY 05/31/14 06/03/18 Albuterol Nebulized [Ventolin 2.5 mg INHALATION RT-Q6H 01/21/17 06/03/18 Nebulized] Albuterol Sulfate [Proair Hfa] 1 - 2 puff INHALATION RT-Q4H PRN 01/21/17 06/03/18 Alendronate Sodium [Fosamax] 70 mg PO MO 01/21/17 06/03/18 Fluticasone Nasal [place] [Flonase 2 spray EA NOSTRIL BID 01/21/17 06/03/18 Nasal [place]] Fluticasone/Salmeterol [Advair 1 puff INHALATION RT-BID 01/21/17 06/03/18 500-50 Diskus] Lipase/Protease/Amylase [Zenpep Dr 75,000 units PO DIRECTED 01/21/17 06/03/18 25,000 Units Capsule] Omeprazole [PriLOSEC] 20 mg PO AC-BID 01/21/17 06/03/18 Gabapentin [Neurontin] 100 mg PO BID 06/01/17 06/03/18 Aspirin 325 mg PO DAILY 06/03/18 06/03/18 Atorvastatin [Lipitor] 10 mg PO HS 06/03/18 06/03/18 Calcium Carbonate [Calcium] 600 mg PO DAILY 06/03/18 06/03/18 Cholecalciferol [Vitamin D3] 1,000 unit PO DAILY 06/03/18 06/03/18 Multivitamins, Thera [Multivitamin 1 tab PO DAILY 06/03/18 06/03/18 (formulary)] Naproxen Sodium [Aleve] 220 mg PO DAILY 06/03/18 06/03/18 Previous Rx's Medication Instructions Recorded predniSONE 10 mg PO DAILY 16 Days #40 tab 06/03/17 Albuterol Nebulized [Ventolin 2.5 mg INHALATION Q4H 30 Days #3 06/05/18 Nebulized] box Levofloxacin 500Mg-D5w Pmx 500 mg IVPB Q24HR 7 Days #7 bag 06/05/18 [Levaquin 500Mg-D5w Pmx] Allergies Allergy/AdvReac Type Severity Reaction Status Date / Time guaifenesin [From Robitussin] AdvReac Severe Anaphylaxis Verified 01/14/21 15:51 propoxyphene napsylate AdvReac Severe Swelling Verified 01/14/21 15:51 [From Darvocet-N] Sulfa (Sulfonamide AdvReac Severe Swelling Verified 01/14/21 15:51 Antibiotics) Review of Systems ROS Statement: Those systems with pertinent positive or pertinent negative responses have been documented in the HPI. ROS Other: All systems not noted in ROS Statement are negative. Past Medical History Past Medical History: COPD, Fibromyalgia, GERD/Reflux, Osteoarthritis (OA) Additional Past Medical History / Comment(s): DDD WITH BACK PAIN, PANCREATITIS, STATES abdominal ANEURYSM THAT THE DR IS MONITORING. , STATES EPISODE OF IRREGULAR HEART BEAT AT DRS OFFICE. History of Any Multi-Drug Resistant Organisms: None Reported Past Surgical History: Back Surgery, Hysterectomy, Orthopedic Surgery Additional Past Surgical History / Comment(s): CLAIRE CARPAL TUNNEL. Past Anesthesia/Blood Transfusion Reactions: No Reported Reaction, Motion Sickness Past Psychological History: Anxiety Past Alcohol Use History: None Reported Past Drug Use History: None Reported - Past Family History Mother Family Medical History: Deep Vein Thrombosis (DVT) Father Family Medical History: Congestive Heart Failure (CHF), Diabetes Mellitus General Exam Limitations: no limitations General appearance: alert, in no apparent distress Head exam: Present: atraumatic, normocephalic, normal inspection Respiratory exam: Present: normal lung sounds bilaterally. Absent: respiratory distress, wheezes, rales, rhonchi, stridor Cardiovascular Exam: Present: regular rate, normal rhythm, normal heart sounds. Absent: systolic murmur, diastolic murmur, rubs, gallop, clicks GI/Abdominal exam: Present: soft, normal bowel sounds. Absent: distended, tenderness, guarding, rebound, rigid Extremities exam: Present: normal inspection, full ROM, normal capillary refill. Absent: tenderness, pedal edema, joint swelling, calf tenderness Neurological exam: Present: alert, oriented X3 Psychiatric exam: Present: normal affect, normal mood Skin exam: Present: warm, dry, intact, normal color. Absent: rash Course Vital Signs 01/14/21 15:47 Temperature 98.1 F Pulse Rate 89 Respiratory 20 Rate Blood Pressure 169/86 O2 Sat by Pulse 92 L Oximetry Medical Decision Making - Medical Decision Making 70-year-old female complaining of cough with productive of yellow sputum. Covid test, chest x-ray ordered per patient's request. Covid test negative. X-ray negative for any acute process. Case discussed with Dr. Gaitan, patient can discharge home. - Lab Data Lab Results 01/14/21 Range/Units 16:15 Coronavirus (PCR) Not Detected (Not Detectd) - Radiology Data Radiology results: report reviewed, image reviewed Chest x-ray: No acute cardiopulmonary process. Disposition Clinical Impression: Upper respiratory tract infection Disposition: HOME SELF-CARE Condition: Stable Instructions (If sedation given, give patient instructions): Upper Respiratory Infection (ED) Additional Instructions: Please return to the Emergency Department if symptoms worsen or any other concerns. Follow-up with primary care in 1-3 days. Take, Motrin for any fevers. Increase oral fluid. Take [id number] cough medicine as needed. Is patient prescribed a controlled substance at d/c from ED?: No Referrals: Fiona Hutchinson MD [Primary Care Provider] - 1-2 days Time of Disposition: 17:40
[2021-01-14 17:48] VITALS: BP 138/78; PULSE 68; TEMP 98
== END 2021-01-14 17:47 | disposition home or self-care (01) ==
LOC: EC 15:40
DX: J06.9 Acute upper respiratory infection, unspecified (principal); J44.9 Chronic obstructive pulmonary disease, unspecified; F41.9 Anxiety disorder, unspecified; K21.9 Gastro-esophageal reflux disease without esophagitis; M19.90 Unspecified osteoarthritis, unspecified site; M79.7 Fibromyalgia; Z79.51 Long term (current) use of inhaled steroids; Z79.52 Long term (current) use of systemic steroids; Z79.82 Long term (current) use of aspirin; Z79.1 Long term (current) use of non-steroidal anti-inflammatories (NSAID); Z88.2 Allergy status to sulfonamides; Z83.3 Family history of diabetes mellitus; Z82.49 Family history of ischemic heart disease and other diseases of the circulatory system
CPT/HCPCS: 71046; 87635; 99283

== ENCOUNTER → 2022-10-05 | Outpatient (CLI) | payer MEDICARE, OTHER ==
--- NOTE | 2022-10-05 12:28 | US ---
EXAMINATION TYPE: US liver DATE OF EXAM: 10/05/2022 COMPARISON: NONE CLINICAL INDICATION: Female, 72 years old with history of R74.8 ABN LEVELS OF OTHER SERUM ENZYMES; Ab normal labs. Patient states having a known AAA. TECHNIQUE: Multiple sonographic images of the right upper quadrant are obtained. FINDINGS: EXAM MEASUREMENTS: Liver Length: 12.5 cm Gallbladder Wall: 0.1 cm CBD: 0.3 cm Right Kidney: 9.3 x 5.4 x 3.8 cm Pancreas: wnl Liver: wnl Gallbladder: Fold seen Evidence for sonographic Guillermo's sign: neg CBD: wnl Right Kidney: wnl Incidental known finding, distal AAA= 7.3 x 4.8 x 3.7 cm IMPRESSION: 1. No evidence distal infrarenal abdominal aorta ectasia measuring up to 7.3 cm. Complete evaluation with CT angiogram of the abdomen and pelvis is recommended. 2. No additional acute intraluminal process.
== END | disposition home or self-care (01) ==
LOC: RADUSWWP 08:08
PROVIDERS: ATTEND Family Medicine
DX: I71.40 Abdominal aortic aneurysm, without rupture, unspecified (principal); R74.8 Abnormal levels of other serum enzymes
CPT/HCPCS: 76705

== ENCOUNTER → 2022-11-18 | Outpatient (CLI) | payer MEDICARE, OTHER ==
[2022-11-18 20:50] LABS: Blood Urea Nitrogen 11.9 mg/dL (9.0-27.0); Calcium 9.5 mg/dL (8.7-10.3); Carbon Dioxide 25.6 mmol/L (21.6-31.8); Chloride 102 mmol/L (96-109); Glucose 125 mg/dL (70-110); Potassium 4.5 mmol/L (3.5-5.5); Sodium 141 mmol/L (135-145)
[2022-11-18 21:37] LABS: HCT 44.3 % (37.2-46.3); HGB 14.2 d/dL (12.0-15.0); MCH 31.6 pg (27.0-32.0); MCHC 32.1 d/dL (32.0-37.0); MCV 98.4 FL (80.0-97.0); Mean Platelet Volume 10.7 FL (9.5-12.2); NRBC Per 100 WBC 0 X 10*3/uL (0.00-0.01); Platelet Count 221 X 10*3/uL (140-440); RDW 12.9 % (11.5-14.5); WBC 7.08 X 10*3/uL (4.50-10.00)
== END | disposition home or self-care (01) ==
LOC: LABWHC1 12:39
PROVIDERS: ATTEND Internal Medicine Interventional Cardiology
DX: R06.02 Shortness of breath (principal)
CPT/HCPCS: 36415; 80048; 85027

== ENCOUNTER → 2023-01-28 | Outpatient (CLI) | payer MEDICARE, OTHER ==
--- NOTE | 2023-01-29 14:30 | PE ---
EXAMINATION TYPE: PET CT fusion skull to thigh DATE OF EXAM: 01/28/2023 COMPARISON: CT chest 12/27/2022 Prior PET/CT: None HISTORY: Lung nodule TECHNIQUE: Following the intravenous administration of 10.5 mCi of F-18 FDG, whole body images are p erformed from the skull base to the midthigh. Images are reviewed on the computer in the coronal, ax ial, and sagittal planes. Reconstructed rotating images are created on independent workstation and r eviewed on the computer. A localization and attenuation correction CT is performed in conjunction w ith the PET scan. DLP: 232.57 mGycm SCAN: Initial Blood glucose: 89 mg/dL Average Mediastinum SUV: 1.54 Average Liver SUV: 2.19 FINDINGS: NECK: There is a mild uptake in the tonsillar pillars with an SUV extending up to 1.91. This could b e inflammatory in nature. THORAX: Nodule SUV measures 0.95, image number 80. This suggests a benign process. Density however i s smaller than typically identified and early neoplasm should be considered. Monitoring with chest CT is recommended. Repeat PET/CT can be performed for changing findings. There is a 1.3 cm lobular density cardio phrenic angle right midlung, image 94. This has an SUV of 0. 47 likely inflammatory change. ABDOMEN: No abnormal uptake PELVIS: No abnormal uptake OSSEOUS STRUCTURES: No abnormal uptake LOCALIZATION CT:There is an abdominal aortic aneurysm with an AP dimension of 4.6 cm. This terminates bifurcation and begins below the level of the renal arteries. Scattered diverticuli are present. There is a stable 1.3 cm lobular nodule within the right midlung. Series 3 image 94. Some thickening appears to be along the major fissure on the left. COMPARISON: IMPRESSION: 1. Right posterior lateral upper lung field hyperintensity of intermediate signal. Early neoplasm obinna uld be considered. Short-term follow-up CT chest in 3 months is recommended. This could be a benign i nflammatory process. 2. Abdominal aortic aneurysm 4.6 cm. 3. No significant signal within the anterior mid right lung nodule.
== END | disposition home or self-care (01) ==
LOC: RADPETMAIN 07:56
PROVIDERS: ATTEND Internal Medicine Critical Care Medicine
DX: I71.40 Abdominal aortic aneurysm, without rupture, unspecified (principal); R91.1 Solitary pulmonary nodule
CPT/HCPCS: 78815; A9552

== ENCOUNTER → 2023-04-01 | Outpatient (CLI) | payer MEDICARE, OTHER ==
[2023-04-01 14:34] LABS: African American GFR (CKD) 81 (>60 ml/min/1.73 sqM); Blood Urea Nitrogen 14 mg/dL (7-17); Non-African American GFR(CKD) 70 (>60 ml/min/1.73 sqM)
--- NOTE | 2023-04-05 09:56 | CT ---
EXAMINATION TYPE: CT angio abd aorta w/Runoff DATE OF EXAM: 04/01/2023 COMPARISON: 10/08/2022 HISTORY: 72-year-old female hx of iliac stents. PAD TECHNIQUE: Contiguous axial scanning of the abdomen and pelvis performed without and with IV Contrast , patient injected with 100 mL of Isovue 370. Postcontrast bilateral lower cervical runoff was also p erformed. Coronal/sagittal reconstructions performed. 3-D reconstructions generated on a dedicated in dependent workstation. CT DLP: 777.10 mGycm Automated exposure control for dose reduction was used. FINDINGS: ABDOMEN PELVIS: Heart normal size without pericardial effusion. Some residual mild patchy subpleural densities remain in the lower lungs but with improvement compared to 10/08/2022. Some residual postinfectious scarring is suspected. No pleural effusion. Noncontrast and arterial phase imaging of the liver, gallbladder, kidneys, and pancreas show no gross abnormality. Low-density thickening and nodularity redemonstrated of the bilateral adrenal glands suggesting adren al hyperplasia and underlying adrenal adenomas measuring up to 1.3 cm on the left and 2.5 x 1.0 cm on the right. No dilated small bowel, free fluid, or free air. No mesenteric or retroperitoneal lymphadenopathy. Moderate stool in the right side of the colon. Moderate circumference of bladder wall thickening main part related to incomplete distention. Finding s may reflect chronic bladder wall hypertrophy. Correlate to exclude cystitis. Prostate gland normal size at 3.5 cm. No abnormal fluid collection in the pelvis or pelvic lymphadenopathy. Bones: Advanced degenerative disc disease mid to lower lumbar spine with hypertrophic facet arthropat hy. VASCULAR: Interval placement of aortobiiliac endovascular stent graft. The infrarenal red devil sac is dilated at 5.3 cm versus 5.5 cm prior to stent graft placement. On arterial phase imaging, no endoleak is identi fied. Right: Segmental mild atherosclerotic narrowing throughout the right external iliac artery. Some clot in web noted in the right WALL SCRAPER. PFA is patent. Scattered mild atherosclerotic calcifications throughout the SFA. Popliteal artery and tibial peroneal trunk are patent. Normal takeoff of the anterior tibial artery. Scattered mild atherosclerotic changes throughout the trifurcation vessels. Peroneal artery becomes diminutive at the distal third leg level and is no longer seen at the ankle. Two-vessel runoff via the anterior and posterior tibial arteries. Left: Some clot and web noted in the WALL SCRAPER which is otherwise patent. PFA is patent. Mild atherosclerotic calcifications throughout the SFA. There is a moderate focal stenosis at the lev el of the adductor hiatus. Popliteal artery is patent. Tibioperoneal trunk and trifurcation vessels are patent with scattered mild atherosclerotic calcifica tions. There is three-vessel runoff demonstrated. IMPRESSION: 1. INTERVAL PLACEMENT OF AORTOBIILIAC ENDOVASCULAR STENT GRAFT. INFRARENAL WAMPANOAG SAC IS DILATED AT 5 .3 CM VERSUS 5.5 CM PRIOR TO STENT GRAFT PLACEMENT. ONLY NONCONTRAST AND ARTERIAL PHASE IMAGING IS PE RFORMED. NO DELAYED SCAN FOR COMPLETE ASSESSMENT OF ENDOLEAK DUE TO RUNOFF PROTOCOL. NO ENDOLEAK IDEN TIFIED ON THE ARTERIAL PHASE. 2. SOME STRANDY CLOT OR WEB NOTED IN THE BILATERAL WALL SCRAPER WITHOUT SIGNIFICANT STENOSIS. 3. SCATTERED MILD ATHEROSCLEROTIC CHANGES THROUGHOUT THE BILATERAL LOWER EXTREMITIES. THERE IS A MODE RATE FOCAL STENOSIS WITHIN THE LEFT SFA AT THE ADDUCTOR HIATUS. 4. THREE-VESSEL RUNOFF ON THE LEFT. 5. ON THE RIGHT, THE PERONEAL ARTERY BECOMES DIMINUTIVE AT THE DISTAL THIRD LEG AND IS NO LONGER SEEN AT THE ANKLE. TWO-VESSEL RUNOFF ON THE RIGHT.
== END | disposition home or self-care (01) ==
LOC: RADCTMAIN 14:03
PROVIDERS: ATTEND Surgery
DX: I71.43 Infrarenal abdominal aortic aneurysm, without rupture (principal); I73.89 Other specified peripheral vascular diseases; I70.203 Unspecified atherosclerosis of native arteries of extremities, bilateral legs; I70.212 Atherosclerosis of native arteries of extremities with intermittent claudication, left leg; Z95.828 Presence of other vascular implants and grafts
CPT/HCPCS: 82565; 84520; 75635; 36415; Q9967

== ENCOUNTER → 2023-05-10 | Outpatient (CLI) | payer MEDICARE, OTHER ==
--- NOTE | 2023-05-12 10:53 | MM ---
Reason for Exam: Screening (asymptomatic). Last mammogram was performed 1 year(s) and 4 month(s) ago. Patient History: Menarche at age 14. First Full-Term at age 24. Hysterectomy at age 37. Postmenopausal. Patient has history of breast feeding. Risk Values: Joya 5 year model risk: 1.6%. NCI Lifetime model risk: 4.3%. Prior Study Comparison: 05/10/2018 Bilateral MG screening mammo w CAD - 2, [facility]. 07/10/2020 Bilateral MG screening mammo w CAD - 2, [facility]. 01/22/2022 Bilateral MG 3D screening mammo w/cad, [facility]. Tissue Density: The breast tissue is heterogeneously dense. This may lower the sensitivity of mammography. Findings: Analyzed By CAD. Nodular density inner upper left breast approximately 2 cm from the nipple. Additional views recommended. Benign calcifications are stable. Overall Assessment: Incomplete: need additional imaging evaluation, BI-RAD 0 Management: Diagnostic Mammogram of the left breast. . Patient should continue monthly self-breast exams. A clinical breast exam by your physician is recommended on an annual basis. This exam should not preclude additional follow-up of suspicious palpable abnormalities. Note on Joya scores and lifetime risk: 1. A Joya score greater than 3% is considered moderate risk. If this is the case, consider specialist referral to assess eligibility for a risk reducing agent. 2. If overall lifetime risk for the development of breast cancer is 20% or higher, the patient may qualify for future screening with alternating mammogram and breast MRI. Electronically signed and approved by: Mickey Cadena M.D. Radiologis
== END | disposition home or self-care (01) ==
LOC: RADMAMWWP 13:07
PROVIDERS: ATTEND Family Medicine
DX: Z12.31 Encounter for screening mammogram for malignant neoplasm of breast (principal); Z78.0 Asymptomatic menopausal state
CPT/HCPCS: 77063; 77067

== ENCOUNTER → 2023-05-10 | Outpatient (CLI) | payer MEDICARE, OTHER ==
[2023-05-10 12:19] LABS: African American GFR (CKD) 68 (>60 ml/min/1.73 sqM); Blood Urea Nitrogen 17 mg/dL (7-17); Non-African American GFR(CKD) 59 (>60 ml/min/1.73 sqM)
--- NOTE | 2023-05-10 14:06 | CT ---
EXAMINATION TYPE: CT chest w con DATE OF EXAM: 05/10/2023 COMPARISON: 04/01/23 HISTORY: lung nodule CT DLP: 126.6 mGycm Automated exposure control for dose reduction was used. CONTRAST: CT scan of the chest is performed with IV Contrast, patient injected with 100 mL of Isovue 300. FINDINGS: LUNGS: 1.2 cm nodule right upper lobe medially unchanged from prior study of 12/27/2022. No new nodule s identified. Parenchymal scarring within the lingula. Upper lobe emphysematous change. No evidence f or infiltrate. No pleural effusion or volume loss. MEDIASTINUM: There are no greater than 1 cm hilar or mediastinal lymph nodes. No pericardial effusi on is seen. Thoracic aorta is of normal caliber. The heart is not enlarged. UPPER ABDOMEN: No significant abnormality appreciated. OTHER: No additional significant abnormality is seen. IMPRESSION: Stable right upper lobe pulmonary nodule. Stability over a two-year time frame is recommended to be d ocumented radiographically.
== END | disposition home or self-care (01) ==
LOC: RADCTMAIN 11:44
PROVIDERS: ATTEND Internal Medicine Critical Care Medicine
DX: R91.1 Solitary pulmonary nodule (principal)
CPT/HCPCS: 82565; 84520; 71260; 36415; Q9967

== ENCOUNTER → 2023-05-19 | Outpatient (CLI) | payer MEDICARE, OTHER ==
--- NOTE | 2023-05-19 08:54 | MM ---
Reason for Exam: Clinical finding. Last screening mammogram was performed less than 1 month ago. Patient History: Menarche at age 14. First Full-Term at age 24. Hysterectomy at age 37. Postmenopausal. Patient has history of breast feeding. Risk Values: Joya 5 year model risk: 1.6%. NCI Lifetime model risk: 4.3%. Prior Study Comparison: 07/10/2020 Bilateral MG screening mammo w CAD - 2, [facility]. 01/22/2022 Bilateral MG 3D screening mammo w/cad, [facility]. 05/10/2023 Bilateral MG 3D screening mammo w/cad, [facility]. Tissue Density: Left: The breast tissue is heterogeneously dense. This may lower the sensitivity of mammography. Findings: Analyzed By CAD. Persistent nodular density left breast 3:00 position approximately 3 cm from the nipple. Ultrasound is recommended. Overall Assessment: Incomplete: need additional imaging evaluation, BI-RAD 0 Management: Diagnostic Breast Ultrasound of the left breast. . Results were given to the patient verbally at the time of exam. Patient should continue monthly self-breast exams. A clinical breast exam by your physician is recommended on an annual basis. This exam should not preclude additional follow-up of suspicious palpable abnormalities. Note on Joya scores and lifetime risk: 1. A Joya score greater than 3% is considered moderate risk. If this is the case, consider specialist referral to assess eligibility for a risk reducing agent. 2. If overall lifetime risk for the development of breast cancer is 20% or higher, the patient may qualify for future screening with alternating mammogram and breast MRI. Electronically signed and approved by: Mickey Cadena M.D. Radiologis
--- NOTE | 2023-05-19 09:37 | USB ---
Reason for Exam: Additional evaluation requested from abnormal screening. Patient History: Menarche at age 14. First Full-Term at age 24. Hysterectomy at age 37. Postmenopausal. Patient has history of breast feeding. Risk Values: Joya 5 year model risk: 1.6%. NCI Lifetime model risk: 4.3%. Technique: Method: Targeted. Prior Study Comparison: 07/10/2020 Bilateral MG screening mammo w CAD - 2, [facility]. 01/22/2022 Bilateral MG 3D screening mammo w/cad, [facility]. 05/10/2023 Bilateral MG 3D screening mammo w/cad, [facility]. Findings: The lateral section of the breast of the left breast, the axilla of the left breast and the retroareolar of the left breast were scanned. Prominent ducts without evidence for solid mass. Overall Assessment: Benign, BI-RAD 2 Management: Screening Mammogram of both breasts in 1 year. A clinical breast exam by your physician is recommended on an annual basis and results should be correlated with mammographic findings. This exam should not preclude additional follow-up of suspicious palpable abnormalities. Results were given to the patient verbally at the time of exam. Electronically signed and approved by: Mickey Cadena M.D. Radiologis
== END | disposition home or self-care (01) ==
LOC: RADMAMWWP 08:28
PROVIDERS: ATTEND Family Medicine
DX: R92.332 Mammographic heterogeneous density, left breast (principal); Z78.0 Asymptomatic menopausal state
CPT/HCPCS: 77065; 76642; G0279; 77061

== ENCOUNTER → 2023-09-20 | Outpatient (CLI) | payer MEDICARE, OTHER ==
[2023-09-20 14:50] LABS: African American GFR (CKD) 67 (>60 ml/min/1.73 sqM); Blood Urea Nitrogen 12 mg/dL (7-17); Non-African American GFR(CKD) 58 (>60 ml/min/1.73 sqM)
--- NOTE | 2023-09-20 23:05 | CT ---
EXAMINATION TYPE: CT chest w con DATE OF EXAM: 09/20/2023 COMPARISON: 05/10/2023, 12/27/2022 HISTORY: SOLITARY PULMONARY NODULE CT DLP: 121.9 mGycm, Automated exposure control for dose reduction was used. CONTRAST: Performed injected with 80ml mL of Isovue 300. TECHNIQUE: Axial images were obtained at 5 mm thick sections. Reconstructed images are reviewed on [facility] computer in the coronal plane. FINDINGS: Portion of the thyroid visualized is normal. Emphysematous changes are evident bilaterally, mild to moderate degree. There is a 1.4 cm lobular nodule anterior medial right midlung this is stable from comparison. No enlarged mediastinal or hilar adenopathy is evident. The ascending aorta diameter at the level o f the main pulmonary artery is 3.3 cm. The main pulmonary artery diameter at the bifurcation is 3.1 cm. Small pericardial effusion is present. Limited CT sections are obtained through the upper abdomen. There are calcifications at the head of t pancreas which may reflect some chronic pancreatitis. IMPRESSION: 1. Stable nodule medial right midlung. This should be confirmed as stable over the course of 2 years. Follow-up in 6 months can be performed.
== END | disposition home or self-care (01) ==
LOC: RADCTMAIN 13:53
PROVIDERS: ATTEND Internal Medicine Critical Care Medicine
DX: R91.1 Solitary pulmonary nodule (principal)
CPT/HCPCS: 82565; 84520; 71260; 36415; Q9967

== ENCOUNTER 2024-01-01 14:37 | Emergency (ER) | payer MEDICARE, OTHER ==
[2024-01-01 15:33] LABS: Basophils # (A) 0.1 k/uL (0-0.2); Basophils % (A) 1 %; Eosinophils % (A) 1 %; HCT 42.1 % (34.0-46.0); HGB 13.8 gm/dL (11.4-16.0); Lymphocytes # (A) 1.8 k/uL (1.0-4.8); Lymphocytes % (A) 33 %; MCH 31.6 pg (25.0-35.0); MCHC 32.8 g/dL (31.0-37.0); MCV 96.4 fL (80.0-100.0); Mean Platelet Volume 7.2; Monocytes # (A) 0.4 k/uL (0-1.0); Monocytes % (A) 7 %; Neutrophils # (A) 3.2 k/uL (1.3-7.7); Neutrophils % (A) 57 %; Platelet Count 243 k/uL (150-450); RBC 4.37 m/uL (3.80-5.40); RDW 12.7 % (11.5-15.5); WBC 5.5 k/uL (3.8-10.6)
[2024-01-01 15:37] LABS: ALT 22 U/L (4-34); AST 34 U/L (14-36); African American GFR (CKD) 71 (>60 ml/min/1.73 sqM); Albumin 4.5 g/dL (3.5-5.0); Alkaline Phosphatase 82 U/L (38-126); Anion Gap 7 mmol/L; Blood Urea Nitrogen 17 mg/dL (7-17); Calcium 9.5 mg/dL (8.4-10.2); Carbon Dioxide 26 mmol/L (22-30); Chloride 107 mmol/L (98-107); Creatine Kinase 151 U/L (30-135); Glucose 150 mg/dL (74-99); Magnesium 2.2 mg/dL (1.6-2.3); Non-African American GFR(CKD) 61 (>60 ml/min/1.73 sqM); Potassium 4.2 mmol/L (3.5-5.1); Sodium 140 mmol/L (137-145); Total Bilirubin 0.4 mg/dL (0.2-1.3); Total Protein 6.8 g/dL (6.3-8.2)
[2024-01-01 17:00] VITALS: TEMP 98.1
[2024-01-01 18:05] VITALS: PULSE 87
--- NOTE | 2024-01-01 18:24 | ED ---
Dizziness HPI - General Chief Complaint: Dizziness Stated Complaint: Dizziness, near syncope, copd, low oxygen Time Seen by Provider: 01/01/24 15:02 Source: patient, RN notes reviewed Mode of arrival: ambulatory Limitations: no limitations - History of Present Illness Initial Comments: 33-year-old female presents with complaints of feeling faint like she might pass out she states she has been helping to shingle a roof in her yard in the hot muggy weather. No chest pain no focal deficits no fevers chills or sweats no other complaints or modifying factors at this time other than patient did have a repair of her abdominal aorta in the last couple years. No problems with this since. MD Complaint: dizziness, lightheadedness - Related Data Home Medications Medication Instructions Recorded Confirmed ALPRAZolam [Xanax] 0.25 tab PO DAILY PRN 05/31/14 01/01/24 Tiotropium 18 Mcg/Puff [Spiriva] 1 puff INHALATION RT-DAILY 05/31/14 01/01/24 Albuterol Nebulized [Ventolin 2.5 mg INHALATION RT-Q4H PRN 01/21/17 01/01/24 Nebulized] Albuterol Sulfate [Proair Hfa] 1 - 2 puff INHALATION RT-Q4H PRN 01/21/17 01/01/24 Alendronate Sodium [Fosamax] 70 mg PO GUNN 01/21/17 01/01/24 Fluticasone Nasal [place] [Flonase 1 spray EA NOSTRIL BID 01/21/17 01/01/24 Nasal [place]] Fluticasone Propion/Salmeterol 1 puff INHALATION RT-BID 01/21/17 01/01/24 [Advair 500-50 Diskus] Omeprazole [PriLOSEC] 20 mg PO DAILY 01/21/17 01/01/24 Aspirin [Adult Low Dose Aspirin EC] 81 mg PO DAILY 02/28/23 01/01/24 guaiFENesin [Mucinex] 1,200 mg PO Q12H PRN 03/02/23 01/01/24 Atorvastatin [Lipitor] 40 mg PO DAILY 01/01/24 01/01/24 Cetirizine HCl 10 mg PO DAILY 01/01/24 01/01/24 Allergies Allergy/AdvReac Type Severity Reaction Status Date / Time guaifenesin [From Robitussin] Allergy Severe Anaphylaxis Verified 01/01/24 19:35 propoxyphene napsylate Allergy Severe Swelling Verified 01/01/24 19:35 [From Darvocet-N] Sulfa (Sulfonamide Allergy Severe Swelling Verified 01/01/24 19:35 Antibiotics) Review of Systems ROS Statement: Those systems with pertinent positive or pertinent negative responses have been documented in the HPI. ROS Other: All systems not noted in ROS Statement are negative. Past Medical History Past Medical History: COPD, Fibromyalgia, GERD/Reflux, Hypertension, Osteoarthritis (OA) Additional Past Medical History / Comment(s): "Pre-Diabetic." DDD WITH BACK PAIN. HX PANCREATITIS. ABDOMINAL ANEURYSM. HX EPISODE OF IRREGULAR HEARTBEAT. Varicose veins. High blood pressure when nervous, TAKEN OFF BLOOD PRESSURE MEDICATION. History of Any Multi-Drug Resistant Organisms: None Reported Past Surgical History: Back Surgery, Hysterectomy, Orthopedic Surgery Additional Past Surgical History / Comment(s): BILATERAL CARPAL TUNNEL SURGERY. Past Anesthesia/Blood Transfusion Reactions: No Reported Reaction, Motion Sickness Past Psychological History: Anxiety Smoking Status: Former smoker Past Alcohol Use History: None Reported Past Drug Use History: None Reported - Past Family History Mother Family Medical History: Deep Vein Thrombosis (DVT) Father Family Medical History: Congestive Heart Failure (CHF), Diabetes Mellitus General Exam - General Exam Comments Initial Comments: This is a well-developed well-nourished awake alert oriented x 4 female Limitations: no limitations General appearance: alert, in no apparent distress Head exam: Present: atraumatic, normocephalic, normal inspection Eye exam: Present: normal appearance, PERRL, EOMI. Absent: scleral icterus, conjunctival injection, periorbital swelling ENT exam: Present: mucous membranes dry Neck exam: Present: normal inspection, full ROM, other (No Stridor JVD or bruits). Absent: tenderness, meningismus, lymphadenopathy Respiratory exam: Present: normal lung sounds bilaterally. Absent: respiratory distress, wheezes, rales, rhonchi, stridor Cardiovascular Exam: Present: regular rate, normal rhythm, normal heart sounds. Absent: systolic murmur, diastolic murmur, rubs, gallop, clicks GI/Abdominal exam: Present: soft, normal bowel sounds. Absent: distended, tenderness, guarding, rebound, rigid, bruit, pulsatile mass Extremities exam: Present: normal inspection, full ROM, normal capillary refill. Absent: tenderness, pedal edema, joint swelling, calf tenderness Back exam: Present: normal inspection Neurological exam: Present: alert, oriented X3, CN II-XII intact Psychiatric exam: Present: normal affect, normal mood Skin exam: Present: warm, dry, intact, normal color. Absent: rash Course Vital Signs 01/01/24 01/01/24 01/01/24 14:45 16:59 17:10 Temperature 97.9 F 98.1 F Pulse Rate 99 87 92 Respiratory 18 18 Rate Blood Pressure 158/101 166/108 161/103 O2 Sat by Pulse 95 95 Oximetry 01/01/24 01/01/24 01/01/24 17:11 18:04 19:46 Temperature Pulse Rate 97 87 87 Respiratory 16 18 Rate Blood Pressure 163/103 159/94 147/94 O2 Sat by Pulse 94 L 95 Oximetry Medical Decision Making - Medical Decision Making Doing much improved after IV hydration. I did discuss the findings with her no evidence of abnormal findings of the clinical dehydration at this time. No evidence of PE. Was pt. sent in by a medical professional or institution (, PA, FLOOR NURSE, urgent care, hospital, or half-way...) When possible be specific @ -No Did you speak to anyone other than the patient for history (EMS, parent, family, police, friend...)? What history was obtained from this source @ -No Did you review nursing and triage notes (agree or disagree)? Why? @ -I reviewed and agree with nursing and triage notes Were old charts reviewed (outside hosp., previous admission, EMS record, old EKG, old radiological studies, urgent care reports/EKG's, half-way records)? Report findings @ -No old charts were reviewed Differential Diagnosis (chest pain, altered mental status, abdominal pain women, abdominal pain men, vaginal bleeding, weakness, fever, dyspnea, syncope, headache, dizziness, GI bleed, back pain, seizure, CVA, palpatations, mental hea lth, musculoskeletal)? @ -weakness ] EKG interpreted by me (3pts min.). @ -As above EKG interpreted by me sinus rhythm of 93 parable 166 QRS duration 93 QT/QTc 399/450 left axis deviation low voltage nonspecific septal configuration X-rays interpreted by me (1pt min.). @ -None done CT interpreted by me (1pt min.). @ -Angio interpreted by me no evidence of acute PE U/S interpreted by me (1pt. min.). @ -None done What testing was considered but not performed or refused? (CT, X-rays, U/S, lab s)? Why? @ -None What meds were considered but not given or refused? Why? @ -None Did you discuss the management of the patient with other professionals (professionals i.e. , PA, FLOOR NURSE, lab, RT, psych nurse, social media marketing manager, deployment engineer, teacher, personnel officer, case packer and sealer)? Give summary @ -No Was smoking cessation discussed for >3mins.? @ -No Was critical care preformed (if so, how long)? @ -No Were there social determinants of health that impacted care today? How? (Homelessness, low income, unemployed, alcoholism, drug addiction, transportation, low edu. Level, literacy, decrease access to med. care, [place] [facility], rehab)? @ -No Was there de-escalation of care discussed even if they declined (Discuss DNR or withdrawal of care, Hospice)? DNR status @ -No What co-morbidities impacted this encounter? (DM, HTN, Smoking, COPD, CAD, Cancer, CVA, ARF, Chemo, Hep., AIDS, mental health diagnosis, sleep apnea, morbid obesity)? @ -OPD, hypertension, prediabetes Was patient admitted / discharged? Hospital course, mention meds given and route, prescriptions, significant lab abnormalities, going to OR and other pertinent info. @ -Hospital course patient was discharged we did discuss increasing her hydration. Undiagnosed new problem with uncertain prognosis? @ -No Drug Therapy requiring intensive monitoring for toxicity (Heparin, Nitro, Insulin, Cardizem)? @ -No Were any procedures done? @ -No Diagnosis/symptom? @ -Weakness, dehydration elevated D-dimer Acute, or Chronic, or Acute on Chronic? @ -Acute Uncomplicated (without systemic symptoms) or Complicated (systemic symptoms)? @ -Default Side effects of treatment? @ -No Exacerbation, Progression, or Severe Exacerbation? @ -No Poses a threat to life or bodily function? How? (Chest pain, [place], [place], pneumonia, PE, COPD, DKA, ARF, appy, cholecystitis, CVA, Diverticulitis, Homicidal, Suicidal, threat to staff... and all critical care pts) @ -No - Lab Data Result diagrams: 01/01/24 15:09 01/01/24 15:09 Lab Results 01/01/24 01/01/24 01/01/24 Range/Units 15:09 15:09 15:09 WBC 5.5 (3.8-10.6) k/uL RBC 4.37 (3.80-5.40) m/uL Hgb 13.8 (11.4-16.0) gm/dL Hct 42.1 (34.0-46.0) % MCV 96.4 (80.0-100.0) fL MCH 31.6 (25.0-35.0) pg MCHC 32.8 (31.0-37.0) g/dL RDW 12.7 (11.5-15.5) % Plt Count 243 (150-450) k/uL MPV 7.2 Neutrophils % 57 % Lymphocytes % 33 % Monocytes % 7 % Eosinophils % 1 % Basophils % 1 % Neutrophils # 3.2 (1.3-7.7) k/uL Lymphocytes # 1.8 (1.0-4.8) k/uL Monocytes # 0.4 (0-1.0) k/uL Eosinophils # 0.0 (0-0.7) k/uL Basophils # 0.1 (0-0.2) k/uL D-Dimer 1.67 H (<0.60) mg/L FEU Sodium 140 (137-145) mmol/L Potassium 4.2 (3.5-5.1) mmol/L Chloride 107 (98-107) mmol/L Carbon Dioxide 26 (22-30) mmol/L Anion Gap 7 mmol/L BUN 17 (7-17) mg/dL Creatinine 0.94 (0.52-1.04) mg/dL Est GFR (CKD-EPI)AfAm 71 (>60 ml/min/1.73 sqM) Est GFR (CKD-EPI)NonAf 61 (>60 ml/min/1.73 sqM) Glucose 150 H (74-99) mg/dL Calcium 9.5 (8.4-10.2) mg/dL Magnesium 2.2 (1.6-2.3) mg/dL Total Bilirubin 0.4 (0.2-1.3) mg/dL AST 34 (14-36) U/L ALT 22 (4-34) U/L Alkaline Phosphatase 82 (38-126) U/L Creatine Kinase 151 H (30-135) U/L Troponin I (0.000-0.034) ng/mL Total Protein 6.8 (6.3-8.2) g/dL Albumin 4.5 (3.5-5.0) g/dL 01/01/24 Range/Units 15:09 WBC (3.8-10.6) k/uL RBC (3.80-5.40) m/uL Hgb (11.4-16.0) gm/dL Hct (34.0-46.0) % MCV (80.0-100.0) fL MCH (25.0-35.0) pg MCHC (31.0-37.0) g/dL RDW (11.5-15.5) % Plt Count (150-450) k/uL MPV Neutrophils % % Lymphocytes % % Monocytes % % Eosinophils % % Basophils % % Neutrophils # (1.3-7.7) k/uL Lymphocytes # (1.0-4.8) k/uL Monocytes # (0-1.0) k/uL Eosinophils # (0-0.7) k/uL Basophils # (0-0.2) k/uL D-Dimer (<0.60) mg/L FEU Sodium (137-145) mmol/L Potassium (3.5-5.1) mmol/L Chloride (98-107) mmol/L Carbon Dioxide (22-30) mmol/L Anion Gap mmol/L BUN (7-17) mg/dL Creatinine (0.52-1.04) mg/dL Est GFR (CKD-EPI)AfAm (>60 ml/min/1.73 sqM) Est GFR (CKD-EPI)NonAf (>60 ml/min/1.73 sqM) Glucose (74-99) mg/dL Calcium (8.4-10.2) mg/dL Magnesium (1.6-2.3) mg/dL Total Bilirubin (0.2-1.3) mg/dL AST (14-36) U/L ALT (4-34) U/L Alkaline Phosphatase (38-126) U/L Creatine Kinase (30-135) U/L Troponin I <0.012 (0.000-0.034) ng/mL Total Protein (6.3-8.2) g/dL Albumin (3.5-5.0) g/dL Disposition Clinical Impression: Dehydration, Elevated d-dimer, Weakness Disposition: HOME SELF-CARE Condition: Good Instructions (If sedation given, give patient instructions): Dizziness (ED), Dehydration (ED) Is patient prescribed a controlled substance at d/c from ED?: No Referrals: Michael Tovar MD [Primary Care Provider] - 1-2 days Time of Disposition: 20:04 Decision Date: 01/01/24 Decision Time: 20:04
--- NOTE | 2024-01-01 19:01 | CT ---
EXAMINATION TYPE: CT angio chest CT DLP: 213.4 mGycm, Automated exposure control for dose reduction was used. DATE OF EXAM: 01/01/2024 6:31 PM COMPARISON: CT chest 09/20/2023 Multiple CTs of the chest with most recent on . CLINICAL INDICATION:Female, 73 years old with history of PE suspected; positive dimer. Solitary pulmo nary nodule identified on previous studies. TECHNIQUE/CONTRAST: CTA scan of the thorax is performed with IV Contrast, patient injected with 100 mL of Isovue 370, MIP images are created and reviewed these are created on a separate workstation.. FINDINGS: Pulmonary Artery: There is no evidence for a filling defect within the pulmonary vasculature to sugge st acute pulmonary embolism. The pulmonary artery is of normal size. Lungs/Pleura: No evidence of focal consolidation, pleural effusion or pneumothorax. A 13 mm nodule in the anterior right middle lobe isn't reidentified. This is stable compared to the prior September 20, 2023 study, and also stable since the prior exam one year ago on December 27, 2022. Moderately severe em physema is present. Airway: Large airways are patent. Heart: Heart is mildly enlarged. Vasculature: No evidence of untreated aortic aneurysm. Metallic mesh stent graft is seen in the infer ior thoracic aorta and into the superior abdominal aorta. Mediastinum: No gross evidence of adenopathy. Musculoskeletal: No acute osseous abnormalities Soft Tissues: Unremarkable. Lower neck: No significant findings. Upper Abdomen: No significant findings. IMPRESSION: 1. No evidence of pulmonary embolism. 2. Moderately severe emphysema. 3. 1.3 cm pulmonary nodule in the anterior right middle lobe, stable for one year. Recommend follow-u p of this nodule in one year. Consider PET/CT or tissue sampling. Follow up recommendations for incidental pulmonary nodules, if there are any, are per [employer] or [employer]. https://radiopaedia.org/articles/pbpctmelon-ycghiqh-qdnjtywyf-[email or web address]?lang=us
[2024-01-01 19:47] VITALS: BP 147/94; RESP 18
== END 2024-01-01 20:14 | disposition home or self-care (01) ==
LOC: EC 14:37
DX: E86.0 Dehydration (principal); R53.1 Weakness; R79.89 Other specified abnormal findings of blood chemistry; Z87.891 Personal history of nicotine dependence; Z88.1 Allergy status to other antibiotic agents; Z88.2 Allergy status to sulfonamides; Z88.8 Allergy status to other drugs, medicaments and biological substances
CPT/HCPCS: 36415; 93005; 85379; 80053; 82550; 83735; 84484; 85025; 71275; 99284; Q9967

== ENCOUNTER → 2024-03-27 | Outpatient (CLI) | payer MEDICARE, OTHER ==
[2024-03-27 10:09] LABS: African American GFR (CKD) 68 (>60 ml/min/1.73 sqM); Blood Urea Nitrogen 18 mg/dL (7-17); Non-African American GFR(CKD) 59 (>60 ml/min/1.73 sqM)
--- NOTE | 2024-03-27 10:43 | CT ---
EXAMINATION TYPE: CT chest w con CT DLP: 128.2 mGycm, Automated exposure control for dose reduction was used. DATE OF EXAM: 03/27/2024 10:33 AM COMPARISON: CTA chest 12/24/2023, CT chest 09/20/2023, 05/10/2023, 12/27/2022, PET/CT 01/28/2023 CLINICAL INDICATION:Female, 73 years old with history of R91.1 LUNG NODULE; PHH, lug nodule TECHNIQUE: Multiple axial images were obtained through the chest following the administration of 100 cc of Isovue 300. . Coronal and sagittal reformats reviewed. FINDINGS: LUNGS/ PLEURA: Mild to moderate centrilobular emphysematous changes. No pleural effusion, pneumothora x, focal consolidation. Stable medial right upper lobe 1.3 cm solid pulmonary nodule (series 4, imag e 33). No new or enlarging pulmonary nodules. Linear scarring within the lingula. AIRWAY: Patent and unremarkable.. HEART: The heart is mildly increased in size.. No pericardial effusion. MEDIASTINUM: No evidence of adenopathy. VASCULATURE: No aortic aneurysm. Four-vessel aortic arch. Mild atherosclerotic calcification of the aorta and its branches. Reflux of contrast into the IVC and hepatic veins. Dilated right main pulmona ry artery which can be seen with pulmonary artery hypertension. MUSCULOSKELETAL: No acute osseous abnormalities. Mild multilevel degenerative disc disease. SOFT TISSUES/LYMPH NODES: Unremarkable. LOWER NECK: No significant findings. UPPER ABDOMEN: Aortic stent graft at the hiatus. Calcifications at the visualized pancreatic head whi ch may represent chronic pancreatitis. IMPRESSION: Stable 1.3 cm medial right upper lobe pulmonary nodule dating back to 12/27/2022 CT. No new or enlargi ng pulmonary nodules. Continued surveillance for at least 2 years from original exam is recommended v ersus PET/CT or tissue sampling. [facility], , 03/27/2024 10:41 AM
== END | disposition home or self-care (01) ==
LOC: RADCTMAIN 09:10
PROVIDERS: ATTEND Internal Medicine Critical Care Medicine
CPT/HCPCS: 36415; 71260; 82565; 84520

== ENCOUNTER → 2024-04-12 | Outpatient (CLI) | payer MEDICARE, OTHER ==
--- NOTE | 2024-04-14 18:11 | BD ---
EXAMINATION TYPE: Axial Bone Density DATE OF EXAM: 04/12/2024 CLINICAL HISTORY: 73 years old Female. ICD-10 CODE: M81.0 AGE-RELATED OSTEOPOROSIS W/O CURRENT PATHO LO , Additional History: Height: 62 Weight: 107 FRAX RISK QUESTIONS: Glucocorticoids (More than 3mos): yes (Ex: prednisone, prednisolone, methylprednisolone, dexamethasone, and hydrocortisone). Secondary Osteoporosis: 3. Menopause before 45: yes RISK FACTORS HISTORY OF: Surgery to Spine/Hip(right/left)/Wrist (right/left): lumbar surgery When: about 30 years ago MEDICATIONS: EXAM MEASUREMENTS: Bone mineral densitometry was performed using the [employer] System. Bone mineral density about the R hip (g/cm2): 0.592 Bone mineral density about the L hip (g/cm2): 0.622 T Score values are as follows: -----R Neck: -2.7 -----L Neck: -2.7 -----R Total: -3.3 -----L Total: -3.1 Z Score values are as follows: -----R Neck: -0.6 -----L Neck: -0.6 -----R Total: -1.3 -----L Total: -1.1 Bone mineral density has: Increased 0.3% since study of: 01-22-22 FRAX%s: The graph provided illustrates a 23.3% chance for a major osteoporotic fx and a 8.8% chance f or the hips probability for fx in 10 years time. IMPRESSION: Osteoporosis (T Score less than -2.5). There is increased fracture risk and therapy is usually indicated based on age. Re-Screen 1-2 years. NOTE: T-SCORE=SD OF THE YOUNG ADULT MEAN. [facility], , 04/14/2024 6:09 PM
== END | disposition home or self-care (01) ==
LOC: RADBDWWP 07:39
PROVIDERS: ATTEND Family Medicine
DX: M81.0 Age-related osteoporosis without current pathological fracture (principal); M81.8 Other osteoporosis without current pathological fracture
CPT/HCPCS: 77080

== ENCOUNTER → 2024-05-15 | Outpatient (CLI) | payer MEDICARE, OTHER ==
--- NOTE | 2024-05-15 15:10 | XR ---
EXAMINATION TYPE: XR chest 2V DATE OF EXAM: 05/15/2024 3:00 PM COMPARISON: Chest radiographs from 01/14/2021, CT chest 03/27/2024 TECHNIQUE: XR chest 2V Frontal and lateral views of the chest. CLINICAL INDICATION:Female, 74 years old with history of J18.9 PNEUMONIA, UNSPECIFIED ORGANISM; FINDINGS: Lungs/Pleura: There is flattening of the diaphragm with increased lucency of the lungs. No evidence o f pneumothorax, pleural effusion or focal consolidation. Stable 1.4 cm pulmonary nodule within the me dial right midlung is demonstrated on lateral view. Pulmonary vascularity: Unremarkable. Heart/mediastinum: Cardiomediastinal silhouette is unremarkable. Atherosclerotic calcifications are seen in the aorta. Musculoskeletal: Multiple level degenerative disc disease changes seen throughout the spine. Other: Partial visualization of abdominal aortic stent graft. IMPRESSION: 1. No acute cardiopulmonary disease process. 2. COPD changes. 3. Stable 1.4 cm medial right upper lobe pulmonary nodule. [facility], , 05/15/2024 3:08 PM
== END | disposition home or self-care (01) ==
LOC: RADXRMAIN 14:48
PROVIDERS: ATTEND Family Medicine
DX: J18.9 Pneumonia, unspecified organism (principal); J44.9 Chronic obstructive pulmonary disease, unspecified; R91.1 Solitary pulmonary nodule
CPT/HCPCS: 71046

== ENCOUNTER → 2024-08-21 | Outpatient (CLI) | payer MEDICARE, OTHER | LOC: CPPFTMAIN 08:47 | PROVIDERS: ATTEND Family Medicine | DX: J44.9 Chronic obstructive pulmonary disease, unspecified (principal); Z87.891 Personal history of nicotine dependence; Z88.2 Allergy status to sulfonamides; Z88.8 Allergy status to other drugs, medicaments and biological substances | CPT/HCPCS: 94060; 94726; 94729 ==

== ENCOUNTER → 2024-11-15 | Outpatient (CLI) | payer MEDICARE, OTHER ==
--- NOTE | 2024-11-15 13:12 | XR ---
EXAMINATION TYPE: XR lumbar spine 2 or 3V, XR pelvis AP view DATE OF EXAM: 11/15/2024 1:03 PM COMPARISON: None CLINICAL INDICATION: Female, 74 years old with history of M54.9 Chronic back pain; PHH, pain TECHNIQUE: XR lumbar spine 2 or 3V, XR pelvis AP view - Frontal, lateral and coned in L5-S1 lateral v iews of the spine. Frontal view of the pelvis. FINDINGS: No evidence of any acute osseous pathology. No evidence of loss of vertebral body height i s seen. There is grade 1 anterolisthesis of L4 and L5 alignment of the lumbar vertebral bodies. Is in crease gapping of anterior vertebral body space at L2-L3. Scattered disc space narrowing. Multilevel marginal osteophyte formation throughout the visualized spine. There is facet joint arthropathy throu ghout the spine. Scattered at least mild neural foraminal stenosis. Atherosclerosis of the arterial v asculature with since present. Mild degeneration changes of the hips with joint space narrowing osteo phyte formation. IMPRESSION: 1. No acute fracture. 2. Moderate to severe multilevel disc degeneration. 3. No evidence for pelvic fracture . 4. mild degeneration changes of the hips. [facility], , 11/15/2024 1:10 PM
== END | disposition home or self-care (01) ==
LOC: RADXRMAIN 12:29
DX: M51.360 Other intervertebral disc degeneration, lumbar region with discogenic back pain only (principal); M47.816 Spondylosis without myelopathy or radiculopathy, lumbar region
CPT/HCPCS: 72100; 72170

== ENCOUNTER 2024-11-26 11:42 | Inpatient (IN) | payer MEDICARE, OTHER ==
--- NOTE | 2024-11-26 12:36 | ED ---
General Adult HPI - General Chief complaint: Shortness of Breath Stated complaint: SOB,Junior leg swelling Time Seen by Provider: 11/26/24 12:22 Source: patient, family, RN notes reviewed Mode of arrival: ambulatory Limitations: no limitations - History of Present Illness Initial comments: Patient is a 74-year-old female present to the emergency department with concerns with difficulty breathing. Onset of symptoms was just the past day or so. Patient does have occasional cough and chest congestion. No fever. No upper respiratory congestion other than the chest. Patient has had some leg swelling that has actually improved some. No calf pain. Patient does have history of COPD and uses oxygen at times. No history of CHF. Patient has history of questionable dysrhythmia that is being evaluated. Patient states her pulse rate has been labile recently. Oxygen has also been low at home. - Related Data Home Medications Medication Instructions Recorded Confirmed ALPRAZolam [Xanax] 0.25 tab PO DAILY PRN 05/31/14 01/01/24 Tiotropium 18 Mcg/Puff [Spiriva] 1 puff INHALATION RT-DAILY 05/31/14 01/01/24 Albuterol Nebulized [Ventolin 2.5 mg INHALATION RT-Q4H PRN 01/21/17 01/01/24 Nebulized] Albuterol Sulfate [Proair Hfa] 1 - 2 puff INHALATION RT-Q4H PRN 01/21/17 01/01/24 Alendronate Sodium [Fosamax] 70 mg PO GUNN 01/21/17 01/01/24 Fluticasone Nasal [place] [Flonase 1 spray EA NOSTRIL BID 01/21/17 01/01/24 Nasal [place]] Fluticasone Propion/Salmeterol 1 puff INHALATION RT-BID 01/21/17 01/01/24 [Advair 500-50 Diskus] Omeprazole [PriLOSEC] 20 mg PO DAILY 01/21/17 01/01/24 Aspirin [Adult Low Dose Aspirin EC] 81 mg PO DAILY 02/28/23 01/01/24 guaiFENesin [Mucinex] 1,200 mg PO Q12H PRN 03/02/23 01/01/24 Atorvastatin [Lipitor] 40 mg PO DAILY 01/01/24 01/01/24 Cetirizine HCl 10 mg PO DAILY 01/01/24 01/01/24 Allergies Allergy/AdvReac Type Severity Reaction Status Date / Time guaifenesin [From Robitussin] Allergy Severe Anaphylaxis Verified 11/26/24 12:13 propoxyphene napsylate Allergy Severe Swelling Verified 11/26/24 12:13 [From Darvocet-N] Sulfa (Sulfonamide Allergy Severe Swelling Verified 11/26/24 12:13 Antibiotics) Review of Systems ROS Statement: Those systems with pertinent positive or pertinent negative responses have been documented in the HPI. ROS Other: All systems not noted in ROS Statement are negative. Constitutional: Denies: fever Eyes: Denies: eye pain ENT: Denies: ear pain Respiratory: Reports: as per HPI, cough, dyspnea Cardiovascular: Reports: edema. Denies: chest pain Endocrine: Reports: fatigue Gastrointestinal: Denies: abdominal pain Musculoskeletal: Reports: back pain (Patient recently throughout her lower back) Skin: Denies: rash Neurological: Denies: weakness Past Medical History Past Medical History: COPD, Fibromyalgia, GERD/Reflux, Hypertension, Osteoarthritis (OA) Additional Past Medical History / Comment(s): "Pre-Diabetic." DDD WITH BACK PAIN. HX PANCREATITIS. ABDOMINAL ANEURYSM. HX EPISODE OF IRREGULAR HEARTBEAT. Varicose veins. High blood pressure when nervous, TAKEN OFF BLOOD PRESSURE MEDI CATION. History of Any Multi-Drug Resistant Organisms: None Reported Past Surgical History: Back Surgery, Hysterectomy, Orthopedic Surgery Additional Past Surgical History / Comment(s): BILATERAL CARPAL TUNNEL SURGERY. Past Anesthesia/Blood Transfusion Reactions: No Reported Reaction, Motion Sickness Past Psychological History: Anxiety Smoking Status: Former smoker Past Alcohol Use History: None Reported Past Drug Use History: None Reported - Past Family History Mother Family Medical History: Deep Vein Thrombosis (DVT) Father Family Medical History: Congestive Heart Failure (CHF), Diabetes Mellitus General Exam Limitations: no limitations General appearance: alert, in no apparent distress Head exam: Present: normocephalic Eye exam: Present: normal appearance Neck exam: Present: normal inspection Respiratory exam: Present: wheezes, decreased breath sounds Cardiovascular Exam: Present: tachycardia GI/Abdominal exam: Present: soft. Absent: tenderness Extremities exam: Present: pedal edema (Trace bilateral). Absent: calf tenderness Neurological exam: Present: alert Psychiatric exam: Present: normal affect, normal mood Skin exam: Present: normal color Course Vital Signs 06/11/26/24 11/26/24 12:08 14:43 14:56 Temperature 97.9 F Pulse Rate 120 H 104 H 94 Respiratory 26 H 18 18 Rate Blood Pressure 151/103 O2 Sat by Pulse 94 L Oximetry EKG Findings - EKG Results: EKG: interpreted by BONILLA (Atrial flutter with a rate of 105. PVCs present. Septal Q waves. Left axis.), normal ST/T Medical Decision Making - Medical Decision Making Was pt. sent in by a medical professional or institution (, [facility], [employer]IST[employer], urgent care, hospital, or retirement...) When possible be specific @ -No Did you speak to anyone other than the patient for history (EMS, parent, family, police, friend...)? What history was obtained from this source @ -No Did you review nursing and triage notes (agree or disagree)? Why? @ -I reviewed and agree with nursing and triage notes Were old charts reviewed (outside hosp., previous admission, EMS record, old EKG, old radiological studies, urgent care reports/EKG's, retirement records)? Report findings @ -No old charts were reviewed Differential Diagnosis (chest pain, altered mental status, abdominal pain women, abdominal pain men, vaginal bleeding, weakness, fever, dyspnea, syncope, headache, dizziness, GI bleed, back pain, seizure, CVA, palpatations, mental health, musculoskeletal)? @ -Differential Dyspnea: Coronary syndrome, arrhythmia, tamponade, asthma, COPD, pulmonary embolism, pneumonia, pneumothorax, pulmonary effusion, anaphylaxis, diabetic ketoacidosis, flailed chest, pulmonary contusion, diaphragmatic rupture, anemia, neuromuscul ar, this is not meant to be an all-inclusive list. EKG interpreted by me (3pts min.). @ -As above X-rays interpreted by me (1pt min.). @ -Chest x-ray concerning for CHF CT interpreted by me (1pt min.). @ -None done U/S interpreted by me (1pt. min.). @ -None done What testing was considered but not performed or refused? (CT, X-rays, U/S, labs)? Why? @ -None What meds were considered but not given or refused? Why? @ -None Did you discuss the management of the patient with other professionals (professionals i.e. , PA, [employer] ASSISTANT, lab, RT, psych nurse, social group worker, tunnel man, teacher, evp and chief operating officer, outpatient case manager)? Give summary @ -Case discussed with Dr. Jung who will admit covering Dr. Gayle Was smoking cessation discussed for >3mins.? @ -No Was critical care preformed (if so, how long)? @ -No Were there social determinants of health that impacted care today? How? (Homelessness, low income, unemployed, alcoholism, drug addiction, transportation, low edu. Level, literacy, decrease access to med. care, long-term, rehab)? @ -No Was there de-escalation of care discussed even if they declined (Discuss DNR or withdrawal of care, Hospice)? DNR status @ -No What co-morbidities impacted this encounter? (DM, HTN, Smoking, COPD, CAD, Cancer, CVA, ARF, Chemo, Hep., AIDS, mental health diagnosis, sleep apnea, morbid obesity)? @ -COPD Was patient admitted / discharged? Hospital course, mention meds given and route, prescriptions, significant lab abnormalities, going to OR and other pertinent info. @ -Patient presents with dyspnea and edema. Evaluation concerning for CHF. Patient likely has commendation of CHF and COPD. Patient will be admitted with consultants. Patient reevaluated and updated. Admission orders written. Patient also appears to have new onset atrial flutter, heparin and Cardizem started Undiagnosed new problem with uncertain prognosis? @ -No Drug Therapy requiring intensive monitoring for toxicity (Heparin, Nitro, Insulin, Cardizem)? @ -Heparin and Cardizem Were any procedures done? @ -No Diagnosis/symptom? @ -CHF, atrial flutter, COPD Acute, or Chronic, or Acute on Chronic? @ -Acute, acute, acute on chronic Uncomplicated (without systemic symptoms) or Complicated (systemic symptoms)? @ -Default Side effects of treatment? @ -No Exacerbation, Progression, or Severe Exacerbation? @ -COPD exacerbation Poses a threat to life or bodily function? How? (Chest pain, [place], MA, pneumonia, PE, COPD, DKA, ARF, appy, cholecystitis, CVA, Diverticulitis, Homicidal, Suicidal, threat to staff... and all critical care pts) @ -Threat to cardiac and pulmonary function - Lab Data Result diagrams: 11/26/24 13:16 11/26/24 13:16 Lab Results 11/26/24 11/26/24 11/26/24 Range/Units 13:16 13:16 13:16 WBC 5.66 (4.50-10.00) 10*3/uL RBC 4.19 (4.10-5.20) 10*6/uL Hgb 13.4 (12.0-15.0) g/dL Hct 41.4 (37.2-46.3) % MCV 98.8 H (80.0-97.0) fL MCH 32.0 (27.0-32.0) pg MCHC 32.4 (32.0-37.0) g/dL Plt Count 199 (140-440) 10*3/uL MPV 9.0 L (9.5-12.2) fL Immature Gran % (Auto) 0.2 % Neutrophils % 67.3 % Lymphocytes % 22.8 % Monocytes % 7.8 % Eosinophils % 0.5 % Basophils % 1.4 % Immature Gran # 0.01 (0.00-0.04) 10*3/uL Neutrophils # 3.81 (1.80-7.70) 10*3/uL Lymphocytes # 1.29 (0.90-5.00) 10*3/uL Monocytes # 0.44 (0.20-1.00) 10*3/uL Eosinophils # 0.03 L (0.04-0.35) 10*3/uL Basophils # 0.08 (0.00-0.10) 10*3/uL PT 10.8 (10.0-12.5) sec INR 1.0 (<1.2) APTT 22.1 (22.0-30.0) sec Sodium 142 (137-145) mmol/L Potassium 4.7 (3.5-5.1) mmol/L Chloride 104 (98-107) mmol/L Carbon Dioxide 33 H (22-30) mmol/L Anion Gap 5 mmol/L BUN 15 (7-17) mg/dL Creatinine 0.79 (0.52-1.04) mg/dL Est GFR (CKD-EPI)AfAm 87 (>60 ml/min/1.73 sqM) Est GFR (CKD-EPI)NonAf 76 (>60 ml/min/1.73 sqM) Glucose 96 (74-99) mg/dL Plasma Lactic Acid [place] (0.7-2.0) mmol/L Calcium 9.7 (8.4-10.2) mg/dL Magnesium 2.0 (1.6-2.3) mg/dL Total Bilirubin 0.8 (0.2-1.3) mg/dL AST 96 H (14-36) U/L ALT 135 H (4-34) U/L Alkaline Phosphatase 211 H (38-126) U/L Troponin I (0.000-0.034) ng/mL NT-Pro-B Natriuret Pep 6380 pg/mL Total Protein 6.4 (6.3-8.2) g/dL Albumin 4.1 (3.5-5.0) g/dL Influenza Type A (PCR) (Not Detectd) Influenza Type B (PCR) (Not Detectd) RSV (PCR) (Not Detectd) SARS-CoV-2 (PCR) (Not Detectd) 11/26/24 11/26/24 11/26/24 Range/Units 13:16 13:16 13:29 WBC (4.50-10.00) 10*3/uL RBC (4.10-5.20) 10*6/uL Hgb (12.0-15.0) g/dL Hct (37.2-46.3) % MCV (80.0-97.0) fL MCH (27.0-32.0) pg MCHC (32.0-37.0) g/dL Plt Count (140-440) 10*3/uL MPV (9.5-12.2) fL Immature Gran % (Auto) % Neutrophils % % Lymphocytes % % Monocytes % % Eosinophils % % Basophils % % Immature Gran # (0.00-0.04) 10*3/uL Neutrophils # (1.80-7.70) 10*3/uL Lymphocytes # (0.90-5.00) 10*3/uL Monocytes # (0.20-1.00) 10*3/uL Eosinophils # (0.04-0.35) 10*3/uL Basophils # (0.00-0.10) 10*3/uL PT (10.0-12.5) sec INR (<1.2) APTT (22.0-30.0) sec Sodium (137-145) mmol/L Potassium (3.5-5.1) mmol/L Chloride (98-107) mmol/L Carbon Dioxide (22-30) mmol/L Anion Gap mmol/L BUN (7-17) mg/dL Creatinine (0.52-1.04) mg/dL Est GFR (CKD-EPI)AfAm (>60 ml/min/1.73 sqM) Est GFR (CKD-EPI)NonAf (>60 ml/min/1.73 sqM) Glucose (74-99) mg/dL Plasma Lactic Acid [place] 1.0 (0.7-2.0) mmol/L Calcium (8.4-10.2) mg/dL Magnesium (1.6-2.3) mg/dL Total Bilirubin (0.2-1.3) mg/dL AST (14-36) U/L ALT (4-34) U/L Alkaline Phosphatase (38-126) U/L Troponin I 0.020 (0.000-0.034) ng/mL NT-Pro-B Natriuret Pep pg/mL Total Protein (6.3-8.2) g/dL Albumin (3.5-5.0) g/dL Influenza Type A (PCR) Not Detected (Not Detectd) Influenza Type B (PCR) Not Detected (Not Detectd) RSV (PCR) Not Detected (Not Detectd) SARS-CoV-2 (PCR) Not Detected (Not Detectd) Disposition Clinical Impression: COPD with acute exacerbation, Congestive heart failure, Atrial flutter Disposition: ADMITTED IP TO THIS HOSP Condition: Serious Is patient prescribed a controlled substance at d/c from ED?: No Referrals: Michael Tovar MD [Primary Care Provider] - 1-2 days Time of Disposition: 15:42
--- NOTE | 2024-11-26 13:07 | XR ---
EXAMINATION TYPE: XR chest 2V DATE OF EXAM: 11/26/2024 1:00 PM COMPARISON: 05/15/2024 CLINICAL INDICATION: Female, 74 years old with history of difficulty breathing, TECHNIQUE: XR chest 2V view(s) obtained. FINDINGS: The heart size is normal. The pulmonary vasculature is prominent. Mild diffuse increased lung markings are present bilaterally. A small right pleural effusion is prese nt. IMPRESSION: 1. Clinical correlation for mild congestive heart failure. 2. Small right pleural effusion [facility], , 11/26/2024 1:05 PM
[2024-11-26] MEDS: methylPREDNISolone SOD SUCCI 125 MG/2 ML VIAL IV STA (13:27)
[2024-11-26 13:31] LABS: Basophils # (A) 0.08 10*3/uL (0.00-0.10); Basophils % (A) 1.4 %; Eosinophils # (A) 0.03 10*3/uL (0.04-0.35); Eosinophils % (A) 0.5 %; HCT 41.4 % (37.2-46.3); HGB 13.4 g/dL (12.0-15.0); Lymphocytes # (A) 1.29 10*3/uL (0.90-5.00); Lymphocytes % (A) 22.8 %; MCHC 32.4 g/dL (32.0-37.0); MCV 98.8 fL (80.0-97.0); Monocytes # (A) 0.44 10*3/uL (0.20-1.00); Monocytes % (A) 7.8 %; Neutrophils # (A) 3.81 10*3/uL (1.80-7.70); Neutrophils % (A) 67.3 %; Platelet Count 199 10*3/uL (140-440); RBC 4.19 10*6/uL (4.10-5.20); WBC 5.66 10*3/uL (4.50-10.00)
[2024-11-26 13:41] LABS: ALT 135 U/L (4-34); AST 96 U/L (14-36); African American GFR (CKD) 87 (>60 ml/min/1.73 sqM); Albumin 4.1 g/dL (3.5-5.0); Alkaline Phosphatase 211 U/L (38-126); Anion Gap 5 mmol/L; Blood Urea Nitrogen 15 mg/dL (7-17); Calcium 9.7 mg/dL (8.4-10.2); Carbon Dioxide 33 mmol/L (22-30); Chloride 104 mmol/L (98-107); Glucose 96 mg/dL (74-99); Non-African American GFR(CKD) 76 (>60 ml/min/1.73 sqM); Potassium 4.7 mmol/L (3.5-5.1); Sodium 142 mmol/L (137-145); Total Bilirubin 0.8 mg/dL (0.2-1.3); Total Protein 6.4 g/dL (6.3-8.2)
[2024-11-26 13:47] LABS: Partial Thromboplastin Time 22.1 sec (22.0-30.0); Prothrombin Time 10.8 sec (10.0-12.5)
[2024-11-26 13:49] LABS: NT-Pro-B-Type Natriuretic Pept 6380 pg/mL
[2024-11-26 14:10] LABS: Influenza A Not Detected (Not Detectd); Influenza B Not Detected (Not Detectd); RSV Not Detected (Not Detectd)
[2024-11-26] MEDS: IPRATROPIUM-ALBUTEROL 3 ML NEB INHALATION STA ×2 (14:43→16:14)
[2024-11-26] MEDS ORDERED: HEPARIN SODIUM 1,000 UN/ML (10ML VL) IV PRN (15:43)
[2024-11-26] MEDS ORDERED: IPRATROPIUM-ALBUTEROL 3 ML NEB INHALATION PRN (15:44)
[2024-11-26] MEDS: IPRATROPIUM-ALBUTEROL 3 ML NEB INHALATION SCH (16:14)
[2024-11-26] MEDS: DILTIAZEM 125 MG in DEXTROSE 5% IN WATER 100 ML IV SCH (16:44)
[2024-11-26] MEDS: HEPARIN SODIUM 1,000 UN/ML (10ML VL) IV ONE (16:47)
[2024-11-26] MEDS: ASPIRIN 325 MG TAB PO STA (16:47)
[2024-11-26] MEDS: FUROSEMIDE 10 MG/ML 2 ML VIAL IV SCH (16:47)
[2024-11-26] MEDS: HEPARIN SOD,PORK IN 0.45% NACL 25,000 UNIT in 0.45% NACL 1 250ML.BAG IV SCH (16:52)
--- NOTE | 2024-11-26 17:46 | P.HPIM ---
History of Present Illness H&P Date: 11/26/24 74 year old F with PMH of COPD on 2L home O2, Anxiety, HLD, GERD presents to the ED for SOB + LE swelling. Breathing progressively getting worse over the past week, worse with exertion. Reports a cough productive of clear sputum. Also reports LE swelling getting worse over the past 3 days. She denies any headache, N/V, fever or chills, chest pain, palpitations, changes in urination or bowel habits. No changes in appetite or weight. No dizziness, numbness/weakness/tinging of the extremities. In the ED she underwent extensive evaluation. BP 151/103, HR 120, RR 26, T 97.9F, 94% on RA. Labs significant for MCV 98.8, bicarb 33, AST 96, ALT 135, alk phos 211, Trop 0.02, BNP 6380. COVID/RSV/Flu neg. CXR mild CHF. CXR showed sinus tacycardia with RBBB. Telemetry appears to be irregular with HR as high as 140s during the encounter. Patient is admitted for further workup and management. General: non toxic, no distress, appears at stated age Derm: warm, dry Head: atraumatic, normocephalic, symmetric Eyes: EOMI, no lid lag, anicteric sclera Mouth: no lip lesion, mucus membranes moist Cardiovascular: S1S2 irreg, no murmur Lungs: Decreased BS bilateral with end expiratory wheezing, no rhonchi, no rales , no accessory muscle use Ext: no gross muscle atrophy, 2+ LE pitting edema, no contractures Neuro: no focal neuro deficits Psych: Alert, oriented, appropriate affect Based on my assessment of this patient, this patient meets a high complexity level of care. Acute on chronic hypoxic respiratory failure secondary to COPD exacerbation with concerns for CHF exacerbation: DuoNeb QID scheduled and PRN for SOB/wheezing. Prednisone 40 mg PO QD. Lasix 20 mg IV TID. Strict intake and outtake. Daily weights. Echo ordered. Cardiology and Pulmonary consulted. Atrial fibrillation with RVR: As seen on telemetry. Start Cardizem drip at 2.5 mg/hr. CHADVASC 2. Stop Heparin and start Eliquis 5 mg PO BID. Obtain TSH. Maintain K > 4 and Mg > 2. Telemetry monitoring. Cardiology consultation. Transaminitis: Unknown etiology. Hold Lipitor for now. Repeat in the AM. Anxiety: Xanax 0.25 mg PO QD PRN. HLD: Lipitor on hold due to above. GERD: Protonix 40 mg PO DQ. CODE STATUS: FULL CODE DVT Prophylaxis: Eliquis GI Prophylaxis: Protonix Designated medical POA if patient is not able to make medical decisions for themselves: I have reviewed the following data center consultant notes: ED note. I have reviewed the results of the following tests: As above. I have ordered the following tests: As above. I have discussed the care of this patient with the following independent historian: I have independently interpreted the following test below: EKG. I have discussed the management of this patient with the following physician: Dr. Franco. Past Medical History Past Medical History: COPD, Fibromyalgia, GERD/Reflux, Hypertension, Osteoarthritis (OA) Additional Past Medical History / Comment(s): "Pre-Diabetic." DDD WITH BACK PAIN. HX PANCREATITIS. ABDOMINAL ANEURYSM. HX EPISODE OF IRREGULAR HEARTBEAT. Varicose veins. High blood pressure when nervous, TAKEN OFF BLOOD PRESSURE MEDICATION. History of Any Multi-Drug Resistant Organisms: None Reported Past Surgical History: Back Surgery, Hysterectomy, Orthopedic Surgery Additional Past Surgical History / Comment(s): BILATERAL CARPAL TUNNEL SURGERY. Past Anesthesia/Blood Transfusion Reactions: No Reported Reaction, Motion Sickness Past Psychological History: Anxiety Smoking Status: Former smoker Past Alcohol Use History: None Reported Past Drug Use History: None Reported - Past Family History Mother Family Medical History: Deep Vein Thrombosis (DVT) Father Family Medical History: Congestive Heart Failure (CHF), Diabetes Mellitus Medications and Allergies Home Medications Medication Instructions Recorded Confirmed Type ALPRAZolam [Xanax] 0.25 tab PO DAILY PRN 05/31/14 01/01/24 History Tiotropium 18 Mcg/Puff [Spiriva] 1 puff INHALATION RT-DAILY 05/31/14 01/01/24 History Albuterol Nebulized [Ventolin 2.5 mg INHALATION RT-Q4H PRN 01/21/17 01/01/24 History Nebulized] Albuterol Sulfate [Proair Hfa] 1 - 2 puff INHALATION RT-Q4H PRN 01/21/17 01/01/24 History Alendronate Sodium [Fosamax] 70 mg PO GUNN 01/21/17 01/01/24 History Fluticasone Nasal [place] [Flonase 1 spray EA NOSTRIL BID 01/21/17 01/01/24 History Nasal [place]] Fluticasone Propion/Salmeterol 1 puff INHALATION RT-BID 01/21/17 01/01/24 History [Advair 500-50 Diskus] Omeprazole [PriLOSEC] 20 mg PO DAILY 01/21/17 01/01/24 History Aspirin [Adult Low Dose Aspirin EC] 81 mg PO DAILY 02/28/23 01/01/24 History guaiFENesin [Mucinex] 1,200 mg PO Q12H PRN 03/02/23 01/01/24 History Atorvastatin [Lipitor] 40 mg PO DAILY 01/01/24 01/01/24 History Cetirizine HCl 10 mg PO DAILY 01/01/24 01/01/24 History Allergies Allergy/AdvReac Type Severity Reaction Status Date / Time guaifenesin [From Robitussin] Allergy Severe Anaphylaxis Verified 11/26/24 12:13 propoxyphene napsylate Allergy Severe Swelling Verified 11/26/24 12:13 [From Darvocet-N] Sulfa (Sulfonamide Allergy Severe Swelling Verified 11/26/24 12:13 Antibiotics) Physical Exam Vitals: Vital Signs Temp Pulse Resp BP Pulse Ox 11/26/24 16:54 130 H 18 138/95 97 11/26/24 16:22 111 H 18 11/26/24 16:14 106 H 22 11/26/24 14:56 94 18 11/26/24 14:43 104 H 18 11/26/24 12:08 97.9 F 120 H 26 H 151/103 94 L Intake and Output 11/26/24 11/26/24 11/26/24 06:59 14:59 22:59 Other: Weight 50.802 kg Results CBC & Chem 7: 11/26/24 13:16 11/26/24 13:16 Labs: Abnormal Lab Results - Last 24 Hours (Table) 11/26/24 11/26/24 Range/Units 13:16 13:16 MCV 98.8 H (80.0-97.0) fL MPV 9.0 L (9.5-12.2) fL Eosinophils # 0.03 L (0.04-0.35) 10*3/uL Carbon Dioxide 33 H (22-30) mmol/L AST 96 H (14-36) U/L ALT 135 H (4-34) U/L Alkaline Phosphatase 211 H (38-126) U/L
[2024-11-26] MEDS: APIXABAN 5 MG TAB PO SCH (20:40)
[2024-11-27 06:18] LABS: HCT 37.2 % (37.2-46.3); HGB 12.2 g/dL (12.0-15.0); MCHC 32.8 g/dL (32.0-37.0); MCV 97.6 fL (80.0-97.0); Mean Platelet Volume 9.4 fL (9.5-12.2); Platelet Count 201 10*3/uL (140-440); RBC 3.81 10*6/uL (4.10-5.20); WBC 3.62 10*3/uL (4.50-10.00)
[2024-11-27 06:37] LABS: ALT 87 U/L (4-34); AST 42 U/L (14-36); African American GFR (CKD) 74 (>60 ml/min/1.73 sqM); Albumin 3.7 g/dL (3.5-5.0); Alkaline Phosphatase 166 U/L (38-126); Anion Gap 5 mmol/L; Blood Urea Nitrogen 23 mg/dL (7-17); Calcium 9.1 mg/dL (8.4-10.2); Carbon Dioxide 33 mmol/L (22-30); Chloride 100 mmol/L (98-107); Glucose 224 mg/dL (74-99); Non-African American GFR(CKD) 64 (>60 ml/min/1.73 sqM); Potassium 4.3 mmol/L (3.5-5.1); Sodium 138 mmol/L (137-145); Total Bilirubin 0.5 mg/dL (0.2-1.3); Total Protein 5.9 g/dL (6.3-8.2)
[2024-11-27 06:45] LABS: INR 1.1 (<1.2); Prothrombin Time 11.7 sec (10.0-12.5)
--- NOTE | 2024-11-27 06:48 | P.CNPUL ---
History of Present Illness Consult date: 11/27/24 Requesting physician: Jorge Franco Reason for consult: COPD Chief complaint: Difficulty in breathing History of present illness: Patient is a 74-year-old female with past medical history significant for COPD, former smoker, lung nodule, hypertension, hyperlipidemia, abdominal aneurysm with previous stent. She does follow with concrete panel installer Dr. Belcher, recent PFT done August, remarkable for an FEV1/FVC ratio 48%, FEV1 0.65 L or 30% of predicted, DLCO 38% of predicted uncorrected for hemoglobin. Currently uses a Trelegy inhaler. She quit smoking over 10 years ago. Present emergency de partment yesterday afternoon with a chief complaint of increased work of breathing and leg swelling. Onset of symptoms 24 to 48 hours prior. While being worked up in the emergency department reportedly found to be in atrial fibrillation with RVR on telemetry. Placed on Cardizem infusion. Chest x-ray remarkable for mild diffuse increased lung markings bilaterally with small right pleural effusion. NT proBNP 6380. Viral screen negative for influenza A/B, RSV, COVID. CBC unremarkable for leukocytosis. Hemoglobin 13.4 g/dL. Platelets 199. BMP fairly unremarkable, electrolytes WDL, creatinine 0.79, glucose 96. LFTs mildly elevated. Troponin 0.02. Patient currently being evaluated emergency department. Resting comfortably on 2 L/min cannula. Endorses occasional cough with white sputum. No purulent sputum or hemoptysis. No fevers or chills. Denies sick contacts. Denies chest pain, heart palpitations, syncopal events, orthopnea. Currently, Cardizem is infusing at 2.5 mg/h. Rhythm on bedside monitor appears regular. Blood pressure normotensive. Previously transitioned to Eliquis. Currently receiving Lasix 20 mg 3 times daily. She has been voiding often. States the swelling in her legs is improved, as well as, her work of breathing. Review of Systems Constitutional: Reports weight gain, Denies chills, Denies fatigue, Denies fever, Denies poor appetite, Denies sweats, Denies weight loss Ears, nose, mouth and throat: Denies headache, Denies nasal congestion, Denies nasal discharge, Denies post-nasal drip, Denies sinus pain, Denies sinus pressure, Denies sore throat Cardiovascular: Reports leg edema, Denies chest pain, Denies lightheadedness, Denies orthopnea, Denies palpitations, Denies paroxysmal nocturnal dyspnea, Denies syncope Respiratory: Reports congestion, Reports cough with sputum, Reports dyspnea, Denies excessive sputum, Denies hemoptysis, Denies wheezing Gastrointestinal: Denies abdominal pain, Denies diarrhea, Denies nausea, Denies vomiting Genitourinary: Denies dysuria, Denies flank pain, Denies hematuria Musculoskeletal: Denies limitation of motion Integumentary: Denies rash Neurological: Denies seizures, Denies syncope Psychiatric: Reports anxiety, Denies depression Past Medical History Past Medical History: COPD, Fibromyalgia, GERD/Reflux, Hypertension, Osteoarthritis (OA) Additional Past Medical History / Comment(s): "Pre-Diabetic." DDD WITH BACK PAIN. HX PANCREATITIS. ABDOMINAL ANEURYSM. HX EPISODE OF IRREGULAR HEARTBEAT. Varicose veins. High blood pressure when nervous, TAKEN OFF BLOOD PRESSURE MEDICATION. History of Any Multi-Drug Resistant Organisms: None Reported Past Surgical History: Back Surgery, Hysterectomy, Orthopedic Surgery Additional Past Surgical History / Comment(s): BILATERAL CARPAL TUNNEL SURGERY. Past Anesthesia/Blood Transfusion Reactions: No Reported Reaction, Motion Si ckness Past Psychological History: Anxiety Smoking Status: Former smoker Past Alcohol Use History: None Reported Past Drug Use History: None Reported - Past Family History Mother Family Medical History: Deep Vein Thrombosis (DVT) Father Family Medical History: Congestive Heart Failure (CHF), Diabetes Mellitus Medications and Allergies Home Medications Medication Instructions Recorded Confirmed Type ALPRAZolam [Xanax] 0.25 tab PO DAILY PRN 05/31/14 11/26/24 History Albuterol Nebulized [Ventolin 2.5 mg INHALATION RT-Q4H PRN 01/21/17 11/27/24 History Nebulized] Albuterol Sulfate [Proair Hfa] 2 puff INHALATION RT-QID PRN 01/21/17 11/26/24 History Alendronate Sodium [Fosamax] 70 mg PO WEEKLY 01/21/17 11/26/24 History Fluticasone Nasal [place] [Flonase 1 spray EA NOSTRIL BID 01/21/17 11/26/24 History Nasal [place]] Omeprazole [PriLOSEC] 20 mg PO DAILY 01/21/17 11/26/24 History Aspirin [Adult Low Dose Aspirin EC] 81 mg PO DAILY 02/28/23 11/26/24 History guaiFENesin [Mucinex] 1,200 mg PO Q12H PRN 03/02/23 11/26/24 History Atorvastatin [Lipitor] 40 mg PO DIRECTED 01/01/24 11/27/24 History Cetirizine HCl 10 mg PO DAILY 01/01/24 11/26/24 History Dicyclomine [Bentyl] 10 mg PO DIRECTED 11/26/24 11/27/24 History Fluticasone/Umeclidin/Vilanter 1 puff INHALATION RT-DAILY 11/26/24 11/26/24 History [Trelegy Ellipta 100-62.5-25] Metoprolol Succinate (ER) [Toprol 12.5 mg PO DIRECTED 11/26/24 11/27/24 History Xl] Allergies Allergy/AdvReac Type Severity Reaction Status Date / Time guaifenesin [From Robitussin] Allergy Severe Anaphylaxis Verified 11/26/24 17:59 propoxyphene napsylate Allergy Severe Swelling Verified 11/26/24 17:59 [From Darvocet-N] Sulfa (Sulfonamide Allergy Severe Swelling Verified 11/26/24 17:59 Antibiotics) metronidazole [From Flagyl] Allergy Rash/Hives Verified 11/26/24 18:02 Physical Exam Vitals: Vital Signs Temp Pulse Resp BP Pulse Ox 11/27/24 02:17 107 H 16 115/78 97 11/26/24 22:26 110 H 16 136/86 97 11/26/24 21:02 112 H 11/26/24 20:50 108 H 11/26/24 19:03 122 H 18 119/96 98 11/26/24 16:54 130 H 18 138/95 97 11/26/24 16:22 111 H 18 11/26/24 16:14 106 H 22 11/26/24 14:56 94 18 11/26/24 14:43 104 H 18 11/26/24 12:08 97.9 F 120 H 26 H 151/103 94 L Intake and Output 11/26/24 11/26/24 11/27/24 14:59 22:59 06:59 Other: Weight 50.802 kg GENERAL EXAM: Alert, 74-year-old female, on 2 L/min nasal cannula,, comfortable in no apparent distress. HEAD: Normocephalic and atraumatic EYES: Normal reaction of pupils, equal size. NOSE: Clear with pink turbinates. THROAT: No erythema or exudates. NECK: No masses, no JVD. CHEST: No chest wall deformity. LUNGS: Equal air entry with no crackles, wheeze, rhonchi or dullness. No conversational dyspnea or accessory muscle use.. CVS: S1 and S2 normal with no audible murmur, irregular rhythm. No extra heart sounds ABDOMEN: No hepatosplenomegaly, active bowel sounds, no guarding or rigidity. SPINE: No scoliosis or deformity SKIN: No rashes CENTRAL NERVOUS SYSTEM: No focal deficits, tone is normal in all 4 extremities. EXTREMITIES: There minimal bilateral lower extremity edema. No clubbing or c yanosis. Peripheral pulses are intact. Results - Laboratory Findings CBC and BMP: 11/27/24 05:18 11/27/24 05:18 PT/INR, D-dimer PT 10.8 sec (10.0-12.5) 11/26/24 13:16 INR 1.0 (<1.2) 11/26/24 13:16 Abnormal lab findings: Abnormal Labs 11/26/24 11/26/24 13:16 13:16 MCV 98.8 H MPV 9.0 L Eosinophils # 0.03 L Carbon Dioxide 33 H AST 96 H ALT 135 H Alkaline Phosphatase 211 H - Diagnostic Findings Chest x-ray: image reviewed Assessment and Plan Assessment: Acute hypoxemic respiratory failure, secondary to acute CHF exacerbation, unkno wn type and possible acute COPD exacerbation New onset atrial fibrillation, reportedly seen on telemetry, previously started on Cardizem infusion and transitioned to Eliquis Severe chronic obstructive pulmonary disease, with FEV1 30% improvement, currently maintained on Trelegy minutes inhaler History of right middle lobe pulmonary nodule, measuring 1.3 cm, being followed on outpatient basis Hypertension History of hyperlipidemia History of abdominal aortic aneurysm, with previous endovascular repair Former tobacco smoker, quit over 10 years ago Plan: Patient's medications, labs, chest x-ray reviewed Currently on 3 L/min nasal cannula Previously started on Lasix 20 mg 3 times daily Patient reportedly noted to be in atrial fibrillation with RVR on telemetry and started on Cardizem infusion which is infusing at 2.5 mg/h as well as anticoagulated on Eliquis. Transthoracic echocardiogram pending Cardiology consulted COPD appears stable on my examination Continue DuoNebs Add Symbicort inhaler, may substitute for Trelegy if made available Continue prednisone taper We will continue to follow I have personally seen and examined the patient, performed the documentation and the assessment and plan as written. Number of minutes spent on the visit:20 This is a joint evaluation that was done along with the nurse practitioner. This evaluation was done in the Emergency Department and this evaluation was done at 33 minutes. The patient is known to have severe COPD and the patient is presenting with an acute on chronic shortness of breath and short exacerbation and the patient also has a new onset atrial fibrillation with rapid ventricular response and the patient is currently on Cardizem drip that was weaned down to 2.5 mg an hour and the patient's on anticoagulation with Eliquis. The patient is stable. Rate is under better control. Will continue bronchodilators. Will add IV Solu-Medrol and discontinue the oral prednisone for now. Will admit the patient for further workup. Echocardiogram is in progress. Time with Patient: Greater than 30
[2024-11-27] MEDS: predniSONE 20 MG TAB PO SCH (08:43)
[2024-11-27] MEDS: LORATADINE 10 MG TAB PO SCH (08:43)
[2024-11-27] MEDS: PANTOPRAZOLE 40 MG TABLET PO SCH (08:44)
[2024-11-27] MEDS: METOPROLOL TARTRATE 50 MG TAB PO SCH (08:44)
[2024-11-27] MEDS: ASPIRIN 81 MG PO SCH (08:44)
[2024-11-27] MEDS: ALPRAZolam 0.25 MG TAB PO PRN (08:44)
[2024-11-27] MEDS ORDERED: ASPIRIN 325 MG TAB PO SCH (09:00)
[2024-11-27] MEDS ORDERED: ATORVASTATIN 40 MG TAB PO SCH (09:00)
[2024-11-27] MEDS: SYMBICORT 160-4.5 MCG INHALER INHALATION SCH (09:26)
--- NOTE | 2024-11-27 12:35 | P.PN ---
Subjective Progress Note Date: 11/27/24 74 year old F with PMH of COPD on 2L home O2, Anxiety, HLD, GERD presents to the ED for SOB + LE swelling. Breathing progressively getting worse over the past week, worse with exertion. Reports a cough productive of clear sputum. Also reports LE swelling getting worse over the past 3 days. She denies any headache, N/V, fever or chills, chest pain, palpitations, changes in urination or bowel habits. No changes in appetite or weight. No dizziness, numbness/weakness/tinging of the extremities. In the ED she underwent extensive evaluation. BP 151/103, HR 120, RR 26, T 97.9F, 94% on RA. Labs significant for MCV 98.8, bicarb 33, AST 96, ALT 135, alk phos 211, Trop 0.02, BNP 6380. COVID/RSV/Flu neg. CXR mild CHF. CXR showed sinus tacycardia with RBBB. Telemetry appears to be irregular with HR as high as 140s during the encounter. Patient is admitted for further workup and management. Started on bronchodilators and Lasix IV along with Cardizem drip for A-Fib. 11/27 Patient was seen and examined. Breathing improved. CBC, Coag panel, CMP significant for WBC 3.62, RBC 3.81, MCV 97.6, bicarb 33, BUN 23, glu 224, AST 42, ALT 87, alk phos 166, total protein 5.9. TSH 0.646. General: non toxic, no distress, appears at stated age Derm: warm, dry Head: atraumatic, normocephalic, symmetric Eyes: EOMI, no lid lag, anicteric sclera Mouth: no lip lesion, mucus membranes moist Cardiovascular: S1S2 irreg, no murmur Lungs: Decreased BS bilateral, no rhonchi, no rales , no accessory muscle use Ext: no gross muscle atrophy, 1-2+ LE pitting edema, no contractures Neuro: no focal neuro deficits Psych: Alert, oriented, appropriate affect Based on my assessment of this patient, this patient meets a high complexity level of care. Acute on chronic hypoxic respiratory failure secondary to COPD exacerbation with concerns for CHF exacerbation: DuoNeb QID scheduled and PRN for SOB/wheezing. Prednisone switched to Solumedrol 60 mg IV Q6H. Lasix discontinued. Strict intake and outtake. Daily weights. Echo ordered. Cardiology and Pulmonary consulted. Atrial fibrillation with RVR: As seen on telemetry. CHADVASC 2. Eliquis 5 mg PO BID. Cardiology started Metoprolol 50 mg PO BID and discontinued Cardizem drip. TSH 0.646. Maintain K > 4 and Mg > 2. Telemetry monitoring. Cardiology consultation. Transaminitis: Unknown etiology. Hold Lipitor for now. Repeat in the AM. Anxiety: Xanax 0.25 mg PO QD PRN. HLD: Lipitor on hold due to above. GERD: Protonix 40 mg PO DQ. CODE STATUS: FULL CODE DVT Prophylaxis: Eliquis GI Prophylaxis: Protonix Designated medical POA if patient is not able to make medical decisions for themselves: I have reviewed the following application security consultant notes: Pulm note. I have reviewed the results of the following tests: CBC, Coag panel, CMP. I have ordered the following tests: Echo is pending. I have discussed the care of this patient with the following independent historian: I have independently interpreted the following test below: I have discussed the management of this patient with the following physician: Objective - Vital Signs Vital signs: Vital Signs Temp 98.2 F 11/27/24 07:25 Pulse 75 11/27/24 11:52 Resp 18 11/27/24 07:25 BP 112/71 11/27/24 07:25 Pulse Ox 97 11/27/24 09:27 FiO2 Intake & Output 11/26/24 11/27/24 11/27/24 18:59 06:59 18:59 Weight 50.802 kg - Labs CBC & Chem 7: 11/27/24 05:18 11/27/24 05:18 Labs: Abnormal Lab Results - Last 24 Hours (Table) 11/26/24 11/26/24 11/27/24 Range/Units 13:16 13:16 05:18 WBC 3.62 L (4.50-10.00) 10*3/uL RBC 3.81 L (4.10-5.20) 10*6/uL MCV 98.8 H 97.6 H (80.0-97.0) fL MPV 9.0 L 9.4 L (9.5-12.2) fL Eosinophils # 0.03 L (0.04-0.35) 10*3/uL Carbon Dioxide 33 H (22-30) mmol/L BUN (7-17) mg/dL Glucose (74-99) mg/dL AST 96 H (14-36) U/L ALT 135 H (4-34) U/L Alkaline Phosphatase 211 H (38-126) U/L Total Protein (6.3-8.2) g/dL /24/25 Range/Units 05:18 WBC (4.50-10.00) 10*3/uL RBC (4.10-5.20) 10*6/uL MCV (80.0-97.0) fL MPV (9.5-12.2) fL Eosinophils # (0.04-0.35) 10*3/uL Carbon Dioxide 33 H (22-30) mmol/L BUN 23 H (7-17) mg/dL Glucose 224 H (74-99) mg/dL AST 42 H (14-36) U/L ALT 87 H (4-34) U/L Alkaline Phosphatase 166 H (38-126) U/L Total Protein 5.9 L (6.3-8.2) g/dL
--- NOTE | 2024-11-27 12:59 | P.CRDCN ---
History of Present Illness History of present illness: HISTORY OF PRESENT ILLNESS: This is a 74-year-old female with a past medical history significant for hyperlipidemia, AAA, PVCs, nonsustained ventricular tachycardia, atrial tachycardia, COPD, pulmonary nodules, and nicotine dependence. Patient follows in the office with Dr. Begum. We have been asked to see the patient in consultation for atrial flutter. Patient examined at the bedside in the emergency room. Patient presented to the hospital for chief complaint of shortness of breath. She is being treated for COPD exacerbation. Patient was found to be in atrial fibrillation. She denies any known history of atrial fibrillation. She remains in atrial fibrillation at the time of examination with heart rate around 110. DIAGNOSTICS: - EKG reveals A-fib with RVR. - Chest xray clinical correlation for mild congestive heart failure. Small right pleural effusion. - Laboratory data: WBC 3.62. Hemoglobin 12.2. Platelet count 201. Sodium 138. Potassium 4.3. BUN 23. Creatinine 0.90. Troponin negative x 1. proBNP 6380. - Most recent echocardiogram obtained in January 2023 revealed normal EF, mild AI, moderate MR -Patient underwent Lexiscan stress test in January 2023 which was negative for ischemia - Cardiac catheterization history: Patient denies REVIEW OF SYSTEMS: At the time of my exam: CONSTITUTIONAL: Denies fever or chills. HEENT: Denies blurred vision, vision changes, or eye pain. Denies hemoptysis CARDIOVASCULAR: Denies chest pain. Denies orthopnea. Denies PND. Denies palpitations RESPIRATORY: Denies shortness of breath. GASTROINTESTINAL: Denies abdominal pain. Denies nausea or vomiting. HEMATOLOGIC: Denies bleeding disorders. GENITOURINARY: Denies any blood in urine. SKIN: Denies pruitis. Denies rash. PHYSICAL EXAM: VITAL SIGNS: Reviewed. GENERAL: Well-developed in no acute distress. HEENT: Head is normocephalic. Pupils are equal, round. Sclerae anicteric. Mucous membranes of the mouth are moist. Neck supple. No JVD or thyromegaly LUNGS: Respirations even and unlabored. Lungs diminished with bilateral wheezing HEART: Irregular rate and rhythm. S1 and S2 heard. ABDOMEN: Soft. Nondistended. Nontender. EXTREMITIES: Normal range of motion. No clubbing or cyanosis. Peripheral pulses intact. No lower extremity edema NEUROLOGIC: Awake and alert. Oriented x 3. ASSESSMENT: Shortness of breath Acute COPD exacerbation New onset atrial fibrillation with RVR History of AAA status post endovascular repair History of PVCs History of nonsustained ventricular tachycardia History of atrial tachycardia Hyperlipidemia History of pulmonary nodules Nicotine dependence PLAN: Clinically, there is no evidence of congestive heart failure. Discontinue IV Lasix Discontinue IV Cardizem Add metoprolol tartrate 50 mg twice daily Patient has been started on anticoagulation with Eliquis Continue telemetry monitoring 2D echo has been ordered by primary medicine. Await results. Further recommendations pending patient course Nurse practitioner note has been reviewed by physician. Signing provider agrees with the documented findings, assessment, and plan of care documented by MGMT CONSULTANT as a scribe. Past Medical History Past Medical History: COPD, Fibromyalgia, GERD/Reflux, Hypertension, Osteoarthritis (OA) Additional Past Medical History / Comment(s): "Pre-Diabetic." DDD WITH BACK PAIN. HX PANCREATITIS. ABDOMINAL ANEURYSM. HX EPISODE OF IRREGULAR HEARTBEAT. Varicose veins. High blood pressure when nervous, TAKEN OFF BLOOD PRESSURE MEDICATION. History of Any Multi-Drug Resistant Organisms: None Reported Past Surgical History: Back Surgery, Hysterectomy, Orthopedic Surgery Additional Past Surgical History / Comment(s): BILATERAL CARPAL TUNNEL SURGERY. Past Anesthesia/Blood Transfusion Reactions: No Reported Reaction, Motion Sickness Past Psychological History: Anxiety Smoking Status: Former smoker Past Alcohol Use History: None Reported Past Drug Use History: None Reported - Past Family History Mother Family Medical History: Deep Vein Thrombosis (DVT) Father Family Medical History: Congestive Heart Failure (CHF), Diabetes Mellitus Medications and Allergies Home Medications Medication Instructions Recorded Confirmed Type ALPRAZolam [Xanax] 0.25 tab PO DAILY PRN 05/31/14 11/26/24 History Albuterol Nebulized [Ventolin 2.5 mg INHALATION DIRECTED PRN 01/21/17 01/01/24 History Nebulized] Albuterol Sulfate [Proair Hfa] 2 puff INHALATION RT-QID PRN 01/21/17 11/26/24 History Alendronate Sodium [Fosamax] 70 mg PO WEEKLY 01/21/17 11/26/24 History Fluticasone Nasal [place] [Flonase 1 spray EA NOSTRIL BID 01/21/17 11/26/24 History Nasal [place]] Omeprazole [PriLOSEC] 20 mg PO DAILY 01/21/17 11/26/24 History Aspirin [Adult Low Dose Aspirin EC] 81 mg PO DAILY 02/28/23 11/26/24 History guaiFENesin [Mucinex] 1,200 mg PO Q12H PRN 03/02/23 11/26/24 History Atorvastatin [Lipitor] 40 mg PO DIRECTED 01/01/24 01/01/24 History Cetirizine HCl 10 mg PO DAILY 01/01/24 11/26/24 History Dicyclomine [Bentyl] 10 mg PO DIRECTED 11/26/24 History Fluticasone/Umeclidin/Vilanter 1 puff INHALATION RT-DAILY 11/26/24 11/26/24 History [Trelegy Ellipta 100-62.5-25] Metoprolol Succinate (ER) [Toprol 12.5 mg PO DIRECTED 11/26/24 History Xl] Allergies Allergy/AdvReac Type Severity Reaction Status Date / Time guaifenesin [From Robitussin] Allergy Severe Anaphylaxis Verified 11/26/24 17:59 propoxyphene napsylate Allergy Severe Swelling Verified 11/26/24 17:59 [From Darvocet-N] Sulfa (Sulfonamide Allergy Severe Swelling Verified 11/26/24 17:59 Antibiotics) metronidazole [From Flagyl] Allergy Rash/Hives Verified 11/26/24 18:02 Physical Exam Vitals: Vital Signs Temp Pulse Resp BP Pulse Ox 11/27/24 11:52 75 11/27/24 11:45 71 11/27/24 09:37 74 11/27/24 09:27 75 97 11/27/24 07:25 98.2 F 96 18 112/71 98 11/27/24 06:18 96 18 113/68 98 11/27/24 05:33 97 16 111/72 97 11/27/24 02:17 107 H 16 115/78 97 11/26/24 22:26 110 H 16 136/86 97 11/26/24 21:02 112 H 11/26/24 20:50 108 H 11/26/24 19:03 122 H 18 119/96 98 11/26/24 16:54 130 H 18 138/95 97 11/26/24 16:22 111 H 18 11/26/24 16:14 106 H 22 11/26/24 14:56 94 18 11/26/24 14:43 104 H 18 Results 11/27/24 05:18 11/27/24 05:18 Cardiac Enzymes 11/26/24 11/26/24 11/27/24 Range/Units 13:16 13:16 05:18 AST 96 H 42 H (14-36) U/L Troponin I 0.020 (0.000-0.034) ng/mL Coagulation 11/26/24 11/27/24 Range/Units 13:16 05:18 PT 10.8 11.7 (10.0-12.5) sec APTT 22.1 (22.0-30.0) sec CBC 11/26/24 11/27/24 Range/Units 13:16 05:18 WBC 5.66 3.62 L (4.50-10.00) 10*3/uL RBC 4.19 3.81 L (4.10-5.20) 10*6/uL Hgb 13.4 12.2 (12.0-15.0) g/dL Hct 41.4 37.2 (37.2-46.3) % Plt Count 199 201 (140-440) 10*3/uL Comprehensive Metabolic Panel 11/26/24 11/27/24 Range/Units 13:16 05:18 Sodium 142 138 (137-145) mmol/L Potassium 4.7 4.3 (3.5-5.1) mmol/L Chloride 104 100 (98-107) mmol/L Carbon Dioxide 33 H 33 H (22-30) mmol/L BUN 15 23 H (7-17) mg/dL Creatinine 0.79 0.90 (0.52-1.04) mg/dL Glucose 96 224 H (74-99) mg/dL Calcium 9.7 9.1 (8.4-10.2) mg/dL AST 96 H 42 H (14-36) U/L ALT 135 H 87 H (4-34) U/L Alkaline Phosphatase 211 H 166 H (38-126) U/L Total Protein 6.4 5.9 L (6.3-8.2) g/dL Albumin 4.1 3.7 (3.5-5.0) g/dL Current Medications Generic Name Dose Route Start Last Admin Trade Name Freq PRN Reason Stop Dose Admin Albuterol/Ipratropium 3 ml 06/23/25 16:00 11/27/24 11:45 Ipratropium-Albuterol 3 Ml Neb INHALATION 3 ml RT-QID JAG Administration Albuterol/Ipratropium 3 ml 11/26/24 15:44 Ipratropium-Albuterol 3 Ml Neb INHALATION RT-QID PRN Shortness Of Breath Or Wheezing Alprazolam 0.25 mg 11/26/24 16:46 11/27/24 08:44 Alprazolam 0.25 Mg Tab PO 0.25 mg DAILY PRN Administration Anxiety Apixaban 5 mg 11/26/24 21:00 11/27/24 08:43 Apixaban 5 Mg Tab PO 5 mg BID JAG Administration Protocol Aspirin 81 mg 11/27/24 09:00 11/27/24 08:44 Aspirin 81 Mg PO 81 mg DAILY JAG Administration Budesonide/Formoterol Fumarate 2 puff 11/27/24 08:00 11/27/24 09:26 Symbicort 160-4.5 Mcg Inhaler INHALATION 2 puff RT-BID JAG Administration Loratadine 10 mg 11/27/24 09:00 11/27/24 08:43 Loratadine 10 Mg Tab PO 10 mg DAILY JAG Administration Methylprednisolone Sodium Succinate 60 mg 11/27/24 13:00 Methylprednisolone Sod Succi 125 Mg/2 Ml Vial IV Q6HR [facility] Metoprolol Tartrate 50 mg 11/27/24 09:00 11/27/24 08:44 Metoprolol Tartrate 50 Mg Tab PO 50 mg BID JAG Administration Pantoprazole Sodium 40 mg 11/27/24 09:00 11/27/24 08:44 Pantoprazole 40 Mg Tablet PO 40 mg DAILY JAG Administration 11/27/24 05:18 11/27/24 05:18
[2024-11-27] MEDS: methylPREDNISolone SOD SUCCI 125 MG/2 ML VIAL IV SCH (13:09)
[2024-11-27] MEDS ORDERED: NITROGLYCERIN OINT 1 INCH/GM PACKET TOPICAL SCH (18:00)
[2024-11-28] MEDS ORDERED: DEXTROSE 50% SYRINGE 50 ML IVP PRN ×2 (07:52)
[2024-11-28] MEDS ORDERED: AMIODARONE 200 MG TAB PO SCH (09:00)
[2024-11-28] MEDS: SPIRONOLACTONE 25 MG TAB PO SCH (09:09)
[2024-11-28] MEDS: AMIODARONE 200 MG TAB PO SCH (09:09)
[2024-11-28] MEDS: METOPROLOL TARTRATE 25 MG TAB PO SCH (09:10)
[2024-11-28] MEDS: SACUBITRIL/VALSARTAN 24 MG-26 MG TABLET PO SCH (09:10)
--- NOTE | 2024-11-28 11:01 | P.PN ---
Subjective HISTORY OF PRESENT ILLNESS: This is a 74-year-old female with a past medical history significant for hyperlipidemia, AAA, PVCs, nonsustained ventricular tachycardia, atrial tachycardia, COPD, pulmonary nodules, and nicotine dependence. Patient follows in the office with Dr. Begum. We have been asked to see the patient in consultation for atrial flutter. Patient examined at the bedside in the emergency room. Patient presented to the hospital for chief complaint of shortness of breath. She is being treated for COPD exacerbation. Patient was found to be in atrial fibrillation. She denies any known history of atrial fibrillation. She remains in atrial fibrillation at the time of examination with heart rate around 110. DIAGNOSTICS: - EKG reveals A-fib with RVR. - Chest xray clinical correlation for mild congestive heart failure. Small right pleural effusion. - Laboratory data: WBC 3.62. Hemoglobin 12.2. Platelet count 201. Sodium 138. Potassium 4.3. BUN 23. Creatinine 0.90. Troponin negative x 1. proBNP 6380. - Most recent echocardiogram obtained in January 2023 revealed normal EF, mild AI, moderate MR -Patient underwent Lexiscan stress test in January 2023 which was negative for ischemia - Cardiac catheterization history: Patient denies 11/28/2024 Patient examined this morning at bedside. Patient currently denies chest pain or pressure. She denies shortness of breath. She remains in atrial fibrillation with a heart rate between [id number]. Echocardiogram being performed at the bedside reveals cardiomyopathy with thickened pericardium and chronic pericarditis. Patient does report having COVID in April 2024 for which she states she had for a long time and her symptoms persisted for a while. She also reports having bronchitis 2-3 times after that. PHYSICAL EXAM: VITAL SIGNS: Reviewed. GENERAL: Well-developed in no acute distress. HEENT: Head is normocephalic. Pupils are equal, round. Sclerae anicteric. Mucous membranes of the mouth are moist. Neck supple. No JVD or thyromegaly LUNGS: Respirations even and unlabored. Lungs diminished with bilateral wheezing HEART: Irregular rate and rhythm. S1 and S2 heard. ABDOMEN: Soft. Nondistended. Nontender. EXTREMITIES: Normal range of motion. No clubbing or cyanosis. Peripheral pulses intact. No lower extremity edema NEUROLOGIC: Awake and alert. Oriented x 3. ASSESSMENT: Shortness of breath Acute COPD exacerbation New onset atrial fibrillation with RVR History of AAA status post endovascular repair History of PVCs History of nonsustained ventricular tachycardia History of atrial tachycardia Hyperlipidemia History of pulmonary nodules Nicotine dependence History of prolonged COVID, April 2024 Cardiomyopathy, suspect nonischemic Thickened pericardium with evidence of chronic pericarditis, suspect viral myopericarditis PLAN: Echocardiogram being performed at the bedside reveals cardiomyopathy with thickened pericardium and chronic pericarditis. Patient does report having COVID in April 2024 that took her a long time to recover from. Suspect viral myopericarditis from history of COVID Increase metoprolol to 75 mg twice a day Add Aldactone Add Entresto Add amiodarone 200 mg twice daily Recommend cardioversion in 4 weeks Further recommendations pending patient course Nurse practitioner note has been reviewed by physician. Signing provider agrees with the documented findings, assessment, and plan of care documented by MACHINE SILK SCREEN PRINTER as a scribe. Objective - Vital Signs Vital signs: Vital Signs Temp 97.7 F 11/28/24 04:00 Pulse 104 H 11/28/24 09:53 Resp 19 11/28/24 04:00 BP 123/92 11/28/24 04:00 Pulse Ox 97 11/28/24 04:00 FiO2 Intake & Output 11/27/24 11/28/24 11/28/24 18:59 06:59 18:59 Weight 61.8 kg Other: Voiding Method Toilet - Labs CBC & Chem 7: 11/27/24 05:18 11/27/24 05:18 Labs: Microbiology - Last 24 Hours (Table) 11/26/24 13:16 Blood Culture - Preliminary Blood
[2024-11-28 11:20] LABS: Glucose,Whole Blood 158 mg/dL (70-110)
--- NOTE | 2024-11-28 11:48 | P.PN ---
Subjective Progress Note Date: 11/28/24 74 year old F with PMH of COPD on 2L home O2, Anxiety, HLD, GERD presents to the ED for SOB + LE swelling. Breathing progressively getting worse over the past week, worse with exertion. Reports a cough productive of clear sputum. Also reports LE swelling getting worse over the past 3 days. She denies any headache, N/V, fever or chills, chest pain, palpitations, changes in urination or bowel habits. No changes in appetite or weight. No dizziness, numbness/weakness/tinging of the extremities. In the ED she underwent extensive evaluation. BP 151/103, HR 120, RR 26, T 97.9F, 94% on RA. Labs significant for MCV 98.8, bicarb 33, AST 96, ALT 135, alk phos 211, Trop 0.02, BNP 6380. COVID/RSV/Flu neg. CXR mild CHF. CXR showed sinus tacycardia with RBBB. Telemetry appears to be irregular with HR as high as 140s during the encounter. Patient is admitted for further workup and management. Started on bronchodilators and Lasix IV along with Cardizem drip for A-Fib. 11/27 Patient was seen and examined. Breathing improved. CBC, Coag panel, CMP significant for WBC 3.62, RBC 3.81, MCV 97.6, bicarb 33, BUN 23, glu 224, AST 42, ALT 87, alk phos 166, total protein 5.9. TSH 0.646. 11/28 Patient was seen and examined. Preliminary Echo results show cardiomyopathy with chronic pericarditis. Started on Aldactone, Entresto and Amiodarone by Cardiology with plans for cardioversion in 4 weeks. General: non toxic, no distress, appears at stated age Derm: warm, dry Head: atraumatic, normocephalic, symmetric Eyes: EOMI, no lid lag, anicteric sclera Mouth: no lip lesion, mucus membranes moist Cardiovascular: S1S2 irreg, no murmur Lungs: Decreased BS bilateral, no rhonchi, no rales , no accessory muscle use Ext: no gross muscle atrophy, 1+ LE pitting edema, no contractures Neuro: no focal neuro deficits Psych: Alert, oriented, appropriate affect Based on my assessment of this patient, this patient meets a high complexity level of care. Acute on chronic hypoxic respiratory failure secondary to COPD exacerbation with concerns for CHF exacerbation COPD exacerbation: DuoNeb QID scheduled and PRN for SOB/wheezing. Solumedrol 60 mg IV Q6H. Pulmonary on board. Cardiomyopathy with chronic pericarditis: Preliminary results. Started on Entresto 24-26 mg PO BID, Aldactone 25 mg PO QD. Metoprolol increased from 50 to 75 mg PO BID. Echo pending. Cardiology on board. Atrial fibrillation with RVR: As seen on telemetry. CHADVASC 2. Eliquis 5 mg PO BID. Metoprolol as above. Amiodarone 200 mg PO BID. TSH 0.646. Maintain K > 4 and Mg > 2. Telemetry monitoring. Cardiology on board. Transaminitis: Unknown etiology. Hold Lipitor for now. Repeat in the AM. Anxiety: Xanax 0.25 mg PO QD PRN. HLD: Lipitor on hold due to above. GERD: Protonix 40 mg PO DQ. CODE STATUS: FULL CODE DVT Prophylaxis: Eliquis GI Prophylaxis: Protonix Designated medical POA if patient is not able to make medical decisions for themselves: I have reviewed the following career consultant notes: Pulm, Cardiology note. I have reviewed the results of the following tests: I have ordered the following tests: Echo is pending. CBC and BMP in the AM. I have discussed the care of this patient with the following independent historian: Son at bedside. I have independently interpreted the following test below: I have discussed the management of this patient with the following physician: Objective - Vital Signs Vital signs: Vital Signs Temp 98.0 F 11/28/24 08:00 Pulse 104 H 11/28/24 09:53 Resp 20 11/28/24 08:00 BP 128/83 11/28/24 08:00 Pulse Ox 95 11/28/24 08:00 FiO2 Intake & Output 11/27/24 11/28/24 11/28/24 18:59 06:59 18:59 Weight 61.8 kg Other: Voiding Method Toilet Toilet - Labs CBC & Chem 7: 11/27/24 05:18 11/27/24 05:18 Labs: Abnormal Lab Results - Last 24 Hours (Table) 11/28/24 Range/Units 11:18 POC Glucose (mg/dL) 158 H (70-110) mg/dL Microbiology - Last 24 Hours (Table) 11/26/24 13:16 Blood Culture - Preliminary Blood
[2024-11-28] MEDS: INSULIN LISPRO (HumaLOG) 100 UNIT/ML 10 mL VL SQ SCH (12:53)
[2024-11-28 14:22] VITALS: BMI 24.1
--- NOTE | 2024-11-28 15:06 | CA ---
Transthoracic Echo Report Name: Fiona Pierre Age: 74 Gender: F : 1950 Exam Date: 11/28/2024 08:19 Exam Location: [facility] Ht (in): 63 Wt (lb): 112 Ordering Physician: Ronnell Tripp MD Attending/Referring Phys: Art Glass Setter Vincent Bryan RDCS Procedure CPT: Indications: chf? Cardiac Hx: Technical Quality: Poor Contrast 1: Definity Total Dose (mL): 2 Contrast 2: Total Dose (mL): MEASUREMENTS (Male / Female) Normal Values 2D ECHO LV Diastolic Diameter PLAX 3.9 cm 4.2 - 5.9 / 3.9 - 5.3 cm LV Systolic Diameter PLAX 2.8 cm IVS Diastolic Thickness 1.1 cm 0.6 - 1.0 / 0.6 - 0.9 cm LVPW Diastolic Thickness 1.3 cm 0.6 - 1.0 / 0.6 - 0.9 cm LV Relative Wall Thickness 0.6 RV Internal Dim ED PLAX 3.5 cm LVOT Diameter 1.8 cm LA Systolic Diameter LX 4.1 cm 3.0 - 4.0 / 2.7 - 3.8 cm LV Diastolic Volume MOD BP 103.0 cm??? 67 - 155 / 56 - 104 cm??? LV Systolic Volume MOD BP 61.8 cm??? - 58 / 19 - 49 cm??? LV Ejection Fraction MOD BP 40.0 % >= 55 % LV Cardiac Index MOD BP 3104.5 cm???/min???m??? LV Diastolic Volume MOD 4C 72.8 cm??? LV Systolic Volume MOD 4C 44.6 cm??? LV Ejection Fraction MOD 4C 38.7 % LV Cardiac Index MOD 4C 2123.9 cm???/min???m??? LV Diastolic Length 4C 6.9 cm LV Systolic Length 4C 6.8 cm LV Diastolic Volume MOD 2C 134.1 cm??? LV Systolic Volume MOD 2C 83.0 cm??? LV Ejection Fraction MOD 2C 38.1 % LV Cardiac Index MOD 2C 3850.2 cm???/min???m??? LV Diastolic Length 2C 7.5 cm LV Systolic Length 2C 7.2 cm LA Volume 85.6 cm??? - 58 / 22 - 52 cm??? LA Volume Index 57.0 cm???/m??? 16 - 28 cm???/m??? DOPPLER AI Peak Velocity 350.6 cm/s AI Peak Gradient 49.2 mmHg AI Pressure Half Time 439.2 ms MV Peak Velocity 153.9 cm/s MV Peak Gradient 9.5 mmHg MV Mean Velocity 92.9 cm/s MV Mean Gradient 4.2 mmHg MV Velocity Time Integral 26.6 cm MV Area PHT 4.1 cm??? MR Peak Velocity 568.4 cm/s MR Peak Gradient 129.3 mmHg MV Deceleration Time 124.3 ms TR Peak Velocity 185.3 cm/s TR Peak Gradient 13.7 mmHg Right Atrial Pressure 20.0 mmHg Pulmonary Artery Systolic Pressu 33.7 mmHg Right Ventricular Systolic Press 33.7 mmHg FINDINGS Left Ventricle Left ventricular ejection fraction is estimated at 30-35 %. Mildly increased septal wall thickness. Moderately increased posterior wall thickness. Moderately increased left ventricular systolic volume. Moderately decreased left ventricular ejection fraction. Left ventricular cavity size normal. Right Ventricle Normal right ventricular size and function. Right ventricular systolic pressure within normal limits. Right Atrium Moderate right atrial dilatation. Possible PFO Left Atrium Mildly increased left atrial diameter. Severely increased left atrial volume. Mildly increased left atrial area. Mitral Valve Mitral valve thickened. Mild mitral stenosis. Moderate mitral regurgitation. Aortic Valve Trileaflet aortic valve. Diffuse thickening (sclerosis) of the aortic valve cusps without reduced excursion. No aortic stenosis. [id number] aortic regurgitation. Tricuspid Valve Structurally normal tricuspid valve. No tricuspid stenosis. Mild tricuspid regurgitation. Pulmonic Valve Structurally normal pulmonic valve. No pulmonic stenosis. Trace pulmonic regurgitation. Pericardium Small pericardial effusion. Aorta Normal size aortic root and proximal ascending aorta. CONCLUSIONS Left ventricle is at upper limits of normal with concentric LVH global decrease in contractility estimate ejection fraction of about 30%. Right atrium is enlarged there is a questionable PFO. Left atrium is enlarged. Moderate mitral sclerosis no significant gradient. Small pericardial effusion. No significant pulmonary hypertension Previewed by: Dr. Xiao Arredondo MD (Electronically Signed) Final Date: 28 November 2024 15:05
[2024-11-28 16:25] LABS: Glucose,Whole Blood 258 mg/dL (70-110)
[2024-11-28 19:41] LABS: Glucose,Whole Blood 286 mg/dL (70-110)
--- NOTE | 2024-11-28 20:41 | P.PN ---
Subjective Progress Note Date: 11/28/24 Patient is a 74-year-old female with past medical history significant for COPD, former smoker, lung nodule, hypertension, hyperlipidemia, abdominal aneurysm with previous stent. She does follow with cereal maker Dr. Belcher, recent PFT done August, remarkable for an FEV1/FVC ratio 48%, FEV1 0.65 L or 30% of predicted, DLCO 38% of predicted uncorrected for hemoglobin. Currently uses a Trelegy inhaler. She quit smoking over 10 years ago. Present emergency department yesterday afternoon with a chief complaint of increased work of breathing and leg swelling. Onset of symptoms 24 to 48 hours prior. While being worked up in the emergency department reportedly found to be in atrial fibrillation with RVR on telemetry. Placed on Cardizem infusion. Chest x-ray remarkable for mild diffuse increased lung markings bilaterally with small right pleural effusion. NT proBNP 6380. Viral screen negative for influenza A/B, RSV, COVID. CBC unremarkable for leukocytosis. Hemoglobin 13.4 g/dL. Platelets 199. BMP fairly unremarkable, electrolytes WDL, creatinine 0.79, g lucose 96. LFTs mildly elevated. Troponin 0.02. Patient currently being evaluated emergency department. Resting comfortably on 2 L/min cannula. Endorses occasional cough with white sputum. No purulent sputum or hemoptysis. No fevers or chills. Denies sick contacts. Denies chest pain, heart p alpitations, syncopal events, orthopnea. Currently, Cardizem is infusing at 2.5 mg/h. Rhythm on bedside monitor appears regular. Blood pressure normotensive. Previously transitioned to Eliquis. Currently receiving Lasix 20 mg 3 times daily. She has been voiding often. States the swelling in her legs is improved, as well as, her work of breathing. On 11/28/2024, the patient is feeling better. She seems to be less short of breath compared to yesterday. Less bronchospastic and wheezy. She remains in atrial fibrillation. Rate is under better control for now. The patient was started on metoprolol 75 mg p.o. twice daily and she was taken off the Cardizem drip. He was also started on Aldactone 25 mg p.o. daily and Entresto 1 tablet a day. She is also on amiodarone 200 mg p.o. twice daily. Echocardiogram was obtained and the patient was found to have systolic heart failure with an ejection fraction of 30 to 35%. There is mild increase in the septal wall thickness and moderate increase in the posterior wall thickness. Moderate increase in the left ventricular volume and small pericardial effusion. No evidence of any significant pulmonary hypertension. Questionable PFO. Blood work from yesterday was noted. No repeat blood work from today. Blood sugars up to 86. She is on insulin sliding scale coverage. She remains on IV Solu-Medrol 60 mg every 6 hours. She remains on DuoNeb updrafts. Objective - Vital Signs Vital signs: Vital Signs Temp 98.0 F 11/28/24 08:00 Pulse 100 11/28/24 13:48 Resp 20 11/28/24 08:00 BP 128/83 11/28/24 08:00 Pulse Ox 95 11/28/24 08:00 FiO2 Intake & Output 11/27/24 11/28/24 11/28/24 18:59 06:59 18:59 Intake Total 240 Balance 240 Weight 61.8 kg Intake: Oral 240 Other: Voiding Method Toilet Toilet - Exam GENERAL EXAM: Alert, 74-year-old female, on 2 L/min nasal cannula,, comfortable in no apparent distress. HEAD: Normocephalic and atraumatic EYES: Normal reaction of pupils, equal size. NOSE: Clear with pink turbinates. THROAT: No erythema or exudates. NECK: No masses, no JVD. CHEST: No chest wall deformity. LUNGS: Equal air entry with no crackles, wheeze, rhonchi or dullness. No conversational dyspnea or accessory muscle use.. CVS: S1 and S2 normal with no audible murmur, irregular rhythm. No extra heart sounds ABDOMEN: No hepatosplenomegaly, active bowel sounds, no guarding or rigidity. SPINE: No scoliosis or deformity SKIN: No rashes CENTRAL NERVOUS SYSTEM: No focal deficits, tone is normal in all 4 extremities. EXTREMITIES: There minimal bilateral lower extremity edema. No clubbing or cyanosis. Peripheral pulses are intact. - Labs CBC & Chem 7: 11/27/24 05:18 11/27/24 05:18 Labs: Abnormal Lab Results - Last 24 Hours (Table) 11/28/24 Range/Units 11:18 POC Glucose (mg/dL) 158 H (70-110) mg/dL Microbiology - Last 24 Hours (Table) 11/26/24 13:16 Blood Culture - Preliminary Blood Assessment and Plan Assessment: Acute hypoxemic respiratory failure, secondary to acute COPD/CHF exacerbation. Clinically stable and the patient remains on 2 L of oxygen by nasal cannula Acute Exacerbation, improving CHF with systolic heart failure and ejection fraction of 30 to 35% New onset atrial fibrillation, rate is under better control and the patient is currently off Cardizem drip, maintained on amiodarone and metoprolol and anticoagulation with Eliquis. Severe chronic obstructive pulmonary disease, with FEV1 30% improvement, currently maintained on Trelegy minutes inhaler History of right middle lobe pulmonary nodule, measuring 1.3 cm, being followed on outpatient basis Hypertension History of hyperlipidemia History of abdominal aortic aneurysm, with previous endovascular repair Former tobacco smoker, quit over 10 years ago Plan: Titrate oxygen flow and the patient is currently on 2 L of oxygen by nasal cannula Continue DuoNeb nebulized treatments [id number] Continue IV Solu-Medrol Continue amiodarone 200 mg p.o. twice daily Metoprolol 75 mg p.o. twice daily Aldactone 25 mg p.o. daily Entresto 1 tablet a day Anticoagulation with Eliquis Echo was noted Will continue to follow Time with Patient: Greater than 30
[2024-11-29 06:23] LABS: Glucose,Whole Blood 184 mg/dL (70-110)
[2024-11-29 08:16] LABS: HCT 42.9 % (37.2-46.3); HGB 13.6 g/dL (12.0-15.0); MCH 31.3 pg (27.0-32.0); MCHC 31.7 g/dL (32.0-37.0); MCV 98.6 fL (80.0-97.0); Mean Platelet Volume 9.3 fL (9.5-12.2); Platelet Count 252 10*3/uL (140-440); RBC 4.35 10*6/uL (4.10-5.20); RDW 13.2 % (11.5-14.5); WBC 11.18 10*3/uL (4.50-10.00)
[2024-11-29 08:36] LABS: African American GFR (CKD) 55 (>60 ml/min/1.73 sqM); Anion Gap 8 mmol/L; Blood Urea Nitrogen 34 mg/dL (7-17); Calcium 9.7 mg/dL (8.4-10.2); Carbon Dioxide 31 mmol/L (22-30); Chloride 99 mmol/L (98-107); Glucose 156 mg/dL (74-99); Non-African American GFR(CKD) 48 (>60 ml/min/1.73 sqM); Potassium 4.6 mmol/L (3.5-5.1); Sodium 138 mmol/L (137-145)
[2024-11-29] MEDS: DAPAGLIFLOZIN PROPANEDIOL 10 MG TABLET PO SCH (09:04)
[2024-11-29 11:49] LABS: Glucose,Whole Blood 195 mg/dL (70-110)
--- NOTE | 2024-11-29 12:07 | P.PN ---
Subjective HISTORY OF PRESENT ILLNESS: This is a 74-year-old female with a past medical history significant for hyperlipidemia, AAA, PVCs, nonsustained ventricular tachycardia, atrial tachycardia, COPD, pulmonary nodules, and nicotine dependence. Patient follows in the office with Dr. Begum. We have been asked to see the patient in consultation for atrial flutter. Patient examined at the bedside in the emergency room. Patient presented to the hospital for chief complaint of shortness of breath. She is being treated for COPD exacerbation. Patient was found to be in atrial fibrillation. She denies any known history of atrial fibrillation. She remains in atrial fibrillation at the time of examination with heart rate around 110. DIAGNOSTICS: - EKG reveals A-fib with RVR. - Chest xray clinical correlation for mild congestive heart failure. Small right pleural effusion. - Laboratory data: WBC 3.62. Hemoglobin 12.2. Platelet count 201. Sodium 138. Potassium 4.3. BUN 23. Creatinine 0.90. Troponin negative x 1. proBNP 6380. - Most recent echocardiogram obtained in January 2023 revealed normal EF, mild AI, moderate MR -Patient underwent Lexiscan stress test in January 2023 which was negative for ischemia - Cardiac catheterization history: Patient denies 11/28/2024 Patient examined this morning at bedside. Patient currently denies chest pain or pressure. She denies shortness of breath. She remains in atrial fibrillation with a heart rate [place] [id number]. Echocardiogram being performed at the bedside reveals cardiomyopathy with thickened pericardium and chronic pericarditis. Patient does report having COVID in April 2024 for which she states she had for a long time and her symptoms persisted for a while. She also reports having bronchitis 2-3 times after that. 11/29/2024 Patient examined this morning at bedside. Patient currently denies chest pain or pressure. She reports improvement in her shortness of breath. Vital signs are stable. Telemetry reveals atrial fibrillation with a heart rate of 105. PHYSICAL EXAM: VITAL SIGNS: Reviewed. GENERAL: Well-developed in no acute distress. HEENT: Head is normocephalic. Pupils are equal, round. Sclerae anicteric. Mucous membranes of the mouth are moist. Neck supple. No JVD or thyromegaly LUNGS: Respirations even and unlabored. Lungs diminished with bilateral wheezing HEART: Irregular rate and rhythm. S1 and S2 heard. ABDOMEN: Soft. Nondistended. Nontender. EXTREMITIES: Normal range of motion. No clubbing or cyanosis. Peripheral pulses intact. No lower extremity edema NEUROLOGIC: Awake and alert. Oriented x 3. ASSESSMENT: Shortness of breath Acute COPD exacerbation New onset atrial fibrillation with RVR History of AAA status post endovascular repair History of PVCs History of nonsustained ventricular tachycardia History of atrial tachycardia Hyperlipidemia History of pulmonary nodules Nicotine dependence History of prolonged COVID, April 2024 Cardiomyopathy, suspect nonischemic Thickened pericardium with evidence of chronic pericarditis, suspect viral myopericarditis PLAN: Echocardiogram being performed at the bedside reveals cardiomyopathy with thickened pericardium and chronic pericarditis. Patient does report having COVID in April 2024 that took her a long time to recover from. Suspect viral myopericarditis from history of COVID Continue current cardiac medications including amiodarone, Eliquis, aspirin, Farxiga, metoprolol, Entresto, Aldactone Recommend cardioversion in 4 weeks Stable for discharge from a cardiac standpoint Patient to follow-up postdischarge with Dr. Begum Nurse practitioner note has been reviewed by physician. Signing provider agrees with the documented findings, assessment, and plan of care documented by [employer] as a scribe. Objective - Vital Signs Vital signs: Vital Signs Temp 97.8 F 11/29/24 08:00 Pulse 98 11/29/24 12:00 Resp 20 11/29/24 08:00 BP 142/87 11/29/24 12:00 Pulse Ox 92 L 11/29/24 12:00 FiO2 Intake & Output 11/28/24 11/29/24 11/29/24 18:59 06:59 18:59 Intake Total 476 360 Balance 476 360 Weight 61.8 kg 51.6 kg Intake: Oral 476 360 Other: Voiding Method Toilet Toilet Toilet # Voids 1 # Bowel Movements 0 - Labs CBC & Chem 7: 11/29/24 07:20 11/29/24 07:20 Labs: Abnormal Lab Results - Last 24 Hours (Table) 11/28/24 11/28/24 11/29/24 Range/Units 16:22 19:39 06:21 WBC (4.50-10.00) 10*3/uL MCV (80.0-97.0) fL MCHC (32.0-37.0) g/dL MPV (9.5-12.2) fL Carbon Dioxide (22-30) mmol/L BUN (7-17) mg/dL Creatinine (0.52-1.04) mg/dL Glucose (74-99) mg/dL POC Glucose (mg/dL) 258 H 286 H 184 H (70-110) mg/dL Hemoglobin A1c (<=6.0) % 11/29/24 11/29/24 11/29/24 Range/Units 07:20 07:20 07:20 WBC 11.18 H (4.50-10.00) 10*3/uL MCV 98.6 H (80.0-97.0) fL MCHC 31.7 L (32.0-37.0) g/dL MPV 9.3 L (9.5-12.2) fL Carbon Dioxide 31 H (22-30) mmol/L BUN 34 H (7-17) mg/dL Creatinine 1.15 H (0.52-1.04) mg/dL Glucose 156 H (74-99) mg/dL POC Glucose (mg/dL) (70-110) mg/dL Hemoglobin A1c 6.5 H (<=6.0) % 11/29/24 Range/Units 11:47 WBC (4.50-10.00) 10*3/uL MCV (80.0-97.0) fL MCHC (32.0-37.0) g/dL MPV (9.5-12.2) fL Carbon Dioxide (22-30) mmol/L BUN (7-17) mg/dL Creatinine (0.52-1.04) mg/dL Glucose (74-99) mg/dL POC Glucose (mg/dL) 195 H (70-110) mg/dL Hemoglobin A1c (<=6.0) % Microbiology - Last 24 Hours (Table) 11/26/24 13:16 Blood Culture - Preliminary Blood
--- NOTE | 2024-11-29 14:21 | P.PN ---
Subjective Progress Note Date: 11/29/24 74 year old F with PMH of COPD on 2L home O2, Anxiety, HLD, GERD presents to the ED for SOB + LE swelling. Breathing progressively getting worse over the past week, worse with exertion. Reports a cough productive of clear sputum. Also reports LE swelling getting worse over the past 3 days. She denies any headache, N/V, fever or chills, chest pain, palpitations, changes in urination or bowel habits. No changes in appetite or weight. No dizziness, numbness/weakness/tinging of the extremities. In the ED she underwent extensive evaluation. BP 151/103, HR 120, RR 26, T 97.9F, 94% on RA. Labs significant for MCV 98.8, bicarb 33, AST 96, ALT 135, alk phos 211, Trop 0.02, BNP 6380. COVID/RSV/Flu neg. CXR mild CHF. CXR showed sinus tacycardia with RBBB. Telemetry appears to be irregular with HR as high as 140s during the encounter. Patient is admitted for further workup and management. Started on bronchodilators and Lasix IV along with Cardizem drip for A-Fib. 11/27 Patient was seen and examined. Breathing improved. CBC, Coag panel, CMP significant for WBC 3.62, RBC 3.81, MCV 97.6, bicarb 33, BUN 23, glu 224, AST 42, ALT 87, alk phos 166, total protein 5.9. TSH 0.646. 11/28 Patient was seen and examined. Preliminary Echo results show cardiomyopathy with chronic pericarditis. Started on Aldactone, Entresto and Amiodarone by Cardiology with plans for cardioversion in 4 weeks. 11/29 Patient was seen and examined. Echo shows EF 30%. Cardiology has cleared the patient for discharge, Dr. Belcher would like to monitor the patient for one more day. CBC and BMP significant for WBC 11.18, MCV 98.6, bicarb 31, BUN 34, Cr 1.15, glu 156. General: non toxic, no distress, appears at stated age Derm: warm, dry Head: atraumatic, normocephalic, symmetric Eyes: EOMI, no lid lag, anicteric sclera Mouth: no lip lesion, mucus membranes moist Cardiovascular: S1S2 irreg, no murmur Lungs: Decreased BS bilateral, no rhonchi, no rales , no accessory muscle use Ext: no gross muscle atrophy, no edema, no contractures Neuro: no focal neuro deficits Psych: Alert, oriented, appropriate affect Based on my assessment of this patient, this patient meets a high complexity level of care. Acute on chronic hypoxic respiratory failure secondary to COPD exacerbation with concerns for CHF exacerbation COPD exacerbation: DuoNeb QID scheduled and PRN for SOB/wheezing. Solumedrol 60 mg IV Q6H. Pulmonary on board. Cardiomyopathy with chronic pericarditis: Continue Entresto 24-26 mg PO BID, Aldactone 25 mg PO QD. Metoprolol 75 mg PO BID. Echo as above. Cardiology on board. Atrial fibrillation with RVR: As seen on telemetry. CHADVASC 2. Eliquis 5 mg PO BID. Metoprolol as above. Amiodarone 200 mg PO BID. TSH 0.646. Maintain K > 4 and Mg > 2. Telemetry monitoring. Cardiology on board. CASSIA: Likely due to initiation of Entresto. Will repeat BMP in the AM. Transaminitis: Improved. Restart Lipitor on discharge. Anxiety: Xanax 0.25 mg PO QD PRN. HLD: Lipitor on hold due to above. GERD: Protonix 40 mg PO DQ. CODE STATUS: FULL CODE DVT Prophylaxis: Eliquis GI Prophylaxis: Protonix Designated medical POA if patient is not able to make medical decisions for themselves: I have reviewed the following licensed tax consultant notes: Pulm, Cardiology note. I have reviewed the results of the following tests: CBC, BMP, Echo. I have ordered the following tests: BMP in the AM. I have discussed the care of this patient with the following independent historian: Son at bedside. RN. I have independently interpreted the following test below: I have discussed the management of this patient with the following physician: Objective - Vital Signs Vital signs: Vital Signs Temp 97.8 F 11/29/24 08:00 Pulse 98 11/29/24 12:00 Resp 20 11/29/24 08:00 BP 142/87 11/29/24 12:00 Pulse Ox 92 L 11/29/24 12:00 FiO2 Intake & Output 11/28/24 11/29/24 11/29/24 18:59 06:59 18:59 Intake Total 476 360 Balance 476 360 Weight 61.8 kg 51.6 kg Intake: Oral 476 360 Other: Voiding Method Toilet Toilet Toilet # Voids 1 # Bowel Movements 0 - Labs CBC & Chem 7: 11/29/24 07:20 11/29/24 07:20 Labs: Abnormal Lab Results - Last 24 Hours (Table) 11/28/24 11/28/24 11/29/24 Range/Units 16:22 19:39 06:21 WBC (4.50-10.00) 10*3/uL MCV (80.0-97.0) fL MCHC (32.0-37.0) g/dL MPV (9.5-12.2) fL Carbon Dioxide (22-30) mmol/L BUN (7-17) mg/dL Creatinine (0.52-1.04) mg/dL Glucose (74-99) mg/dL POC Glucose (mg/dL) 258 H 286 H 184 H (70-110) mg/dL Hemoglobin A1c (<=6.0) % 11/29/24 11/29/24 11/29/24 Range/Units 07:20 07:20 07:20 WBC 11.18 H (4.50-10.00) 10*3/uL MCV 98.6 H (80.0-97.0) fL MCHC 31.7 L (32.0-37.0) g/dL MPV 9.3 L (9.5-12.2) fL Carbon Dioxide 31 H (22-30) mmol/L BUN 34 H (7-17) mg/dL Creatinine 1.15 H (0.52-1.04) mg/dL Glucose 156 H (74-99) mg/dL POC Glucose (mg/dL) (70-110) mg/dL Hemoglobin A1c 6.5 H (<=6.0) % 11/29/24 Range/Units 11:47 WBC (4.50-10.00) 10*3/uL MCV (80.0-97.0) fL MCHC (32.0-37.0) g/dL MPV (9.5-12.2) fL Carbon Dioxide (22-30) mmol/L BUN (7-17) mg/dL Creatinine (0.52-1.04) mg/dL Glucose (74-99) mg/dL POC Glucose (mg/dL) 195 H (70-110) mg/dL Hemoglobin A1c (<=6.0) % Microbiology - Last 24 Hours (Table) 11/26/24 13:16 Blood Culture - Preliminary Blood
[2024-11-29 16:58] LABS: Glucose,Whole Blood 200 mg/dL (70-110)
--- NOTE | 2024-11-29 18:19 | P.PN ---
Subjective Progress Note Date: 11/29/24 Patient is a 74-year-old female with past medical history significant for COPD, former smoker, lung nodule, hypertension, hyperlipidemia, abdominal aneurysm with previous stent. She does follow with pricing strategist Dr. Belcher, recent PFT done August, remarkable for an FEV1/FVC ratio 48%, FEV1 0.65 L or 30% of predicted, DLCO 38% of predicted uncorrected for hemoglobin. Currently uses a Trelegy inhaler. She quit smoking over 10 years ago. Present emergency department yesterday afternoon with a chief complaint of increased work of breathing and leg swelling. Onset of symptoms 24 to 48 hours prior. While being worked up in the emergency department reportedly found to be in atrial fibrillation with RVR on telemetry. Placed on Cardizem infusion. Chest x-ray remarkable for mild diffuse increased lung markings bilaterally with small right pleural effusion. NT proBNP 6380. Viral screen negative for influenza A/B, RSV, COVID. CBC unremarkable for leukocytosis. Hemoglobin 13.4 g/dL. Platelets 199. BMP fairly unremarkable, electrolytes WDL, creatinine 0.79, g lucose 96. LFTs mildly elevated. Troponin 0.02. Patient currently being evaluated emergency department. Resting comfortably on 2 L/min cannula. Endorses occasional cough with white sputum. No purulent sputum or hemoptysis. No fevers or chills. Denies sick contacts. Denies chest pain, heart p alpitations, syncopal events, orthopnea. Currently, Cardizem is infusing at 2.5 mg/h. Rhythm on bedside monitor appears regular. Blood pressure normotensive. Previously transitioned to Eliquis. Currently receiving Lasix 20 mg 3 times daily. She has been voiding often. States the swelling in her legs is improved, as well as, her work of breathing. On 11/28/2024, the patient is feeling better. She seems to be less short of breath compared to yesterday. Less bronchospastic and wheezy. She remains in atrial fibrillation. Rate is under better control for now. The patient was started on metoprolol 75 mg p.o. twice daily and she was taken off the Cardizem drip. He was also started on Aldactone 25 mg p.o. daily and Entresto 1 tablet a day. She is also on amiodarone 200 mg p.o. twice daily. Echocardiogram was obtained and the patient was found to have systolic heart failure with an ejection fraction of 30 to 35%. There is mild increase in the septal wall thickness and moderate increase in the posterior wall thickness. Moderate increase in the left ventricular volume and small pericardial effusion. No evidence of any significant pulmonary hypertension. Questionable PFO. Blood work from yesterday was noted. No repeat blood work from today. Blood sugars up to 86. She is on insulin sliding scale coverage. She remains on IV Solu-Medrol 60 mg every 6 hours. She remains on DuoNeb updrafts. On 11/29/2024, the patient is feeling better and the patient is currently on room air oxygen. Remains in atrial fibrillation. She is diagnosed having CHF with impaired LV function and the patient is currently on a combination of treatment including Entresto, Lopressor, and Aldactone. She is also on Farxiga. She was started on anticoagulation with Eliquis regarding her atrial fibrillation. The rate is controlled for now. Her COPD is further being optimized and the patient remains on DuoNeb updrafts and IV Solu-Medrol. No chest pain. BUN 34 with a creatinine of 1.1. WBC count 11.1 with a platelet count of 252 and hemoglobin 13.6. Objective - Vital Signs Vital signs: Vital Signs Temp 97.8 F 11/29/24 08:00 Pulse 92 11/29/24 08:59 Resp 20 11/29/24 08:00 BP 122/82 11/29/24 08:00 Pulse Ox 91 L 11/29/24 08:48 FiO2 Intake & Output 11/28/24 11/29/24 11/29/24 18:59 06:59 18:59 Intake Total 476 360 Balance 476 360 Weight 61.8 kg 51.6 kg Intake: Oral 476 360 Other: Voiding Method Toilet Toilet Toilet # Voids 1 # Bowel Movements 0 - Exam GENERAL EXAM: Alert, 74-year-old female, on room air oxygen,, comfortable in no apparent distress. HEAD: Normocephalic and atraumatic EYES: Normal reaction of pupils, equal size. NOSE: Clear with pink turbinates. THROAT: No erythema or exudates. NECK: No masses, no JVD. CHEST: No chest wall deformity. LUNGS: Equal air entry with no crackles, wheeze, rhonchi or dullness. No conversational dyspnea or accessory muscle use.. CVS: S1 and S2 normal with no audible murmur, irregular rhythm. No extra heart sounds ABDOMEN: No hepatosplenomegaly, active bowel sounds, no guarding or rigidity. SPINE: No scoliosis or deformity SKIN: No rashes CENTRAL NERVOUS SYSTEM: No focal deficits, tone is normal in all 4 extremities. EXTREMITIES: There minimal bilateral lower extremity edema. No clubbing or cyanosis. Peripheral pulses are intact. - Labs CBC & Chem 7: 11/29/24 07:20 11/29/24 07:20 Labs: Abnormal Lab Results - Last 24 Hours (Table) 11/28/24 11/28/24 11/29/24 Range/Units 16:22 19:39 06:21 WBC (4.50-10.00) 10*3/uL MCV (80.0-97.0) fL MCHC (32.0-37.0) g/dL MPV (9.5-12.2) fL Carbon Dioxide (22-30) mmol/L BUN (7-17) mg/dL Creatinine (0.52-1.04) mg/dL Glucose (74-99) mg/dL POC Glucose (mg/dL) 258 H 286 H 184 H (70-110) mg/dL Hemoglobin A1c (<=6.0) % 11/29/24 11/29/24 11/29/24 Range/Units 07:20 07:20 07:20 WBC 11.18 H (4.50-10.00) 10*3/uL MCV 98.6 H (80.0-97.0) fL MCHC 31.7 L (32.0-37.0) g/dL MPV 9.3 L (9.5-12.2) fL Carbon Dioxide 31 H (22-30) mmol/L BUN 34 H (7-17) mg/dL Creatinine 1.15 H (0.52-1.04) mg/dL Glucose 156 H (74-99) mg/dL POC Glucose (mg/dL) (70-110) mg/dL Hemoglobin A1c 6.5 H (<=6.0) % 11/29/24 Range/Units 11:47 WBC (4.50-10.00) 10*3/uL MCV (80.0-97.0) fL MCHC (32.0-37.0) g/dL MPV (9.5-12.2) fL Carbon Dioxide (22-30) mmol/L BUN (7-17) mg/dL Creatinine (0.52-1.04) mg/dL Glucose (74-99) mg/dL POC Glucose (mg/dL) 195 H (70-110) mg/dL Hemoglobin A1c (<=6.0) % Microbiology - Last 24 Hours (Table) 11/26/24 13:16 Blood Culture - Preliminary Blood Assessment and Plan Assessment: Acute hypoxemic respiratory failure, secondary to acute COPD/CHF exacerbation. Clinically stable and the patient is currently on room air oxygen Acute COPD exacerbation, improving CHF with systolic heart failure and ejection fraction of 30 to 35% New onset atrial fibrillation, rate is under better control and the patient is currently off Cardizem drip, maintained on amiodarone and metoprolol and anticoagulation with Eliquis. Severe chronic obstructive pulmonary disease, with FEV1 30% improvement, currently maintained on Trelegy minutes inhaler History of right middle lobe pulmonary nodule, measuring 1.3 cm, being followed on outpatient basis Hypertension History of hyperlipidemia History of abdominal aortic aneurysm, with previous endovascular repair Former tobacco smoker, quit over 10 years ago Plan: Titrate oxygen flow and the patient is currently on room air oxygen, switch this patient to a prednisone burst taper at time of discharge Continue DuoNeb nebulized treatments [id number] Continue IV Solu-Medrol Continue amiodarone 200 mg p.o. twice daily Metoprolol 75 mg p.o. twice daily Aldactone 25 mg p.o. daily Entresto 1 tablet a day Anticoagulation with Eliquis Echo was noted Will continue to follow\ Time with Patient: Greater than 30
[2024-11-29 20:25] LABS: Glucose,Whole Blood 217 mg/dL (70-110)
[2024-11-30 06:05] LABS: Glucose,Whole Blood 216 mg/dL (70-110)
[2024-11-30 09:03] VITALS: RESP 18
[2024-11-30 09:04] VITALS: BP 140/89; PULSE 103; TEMP 98
[2024-11-30 09:21] LABS: African American GFR (CKD) 67 (>60 ml/min/1.73 sqM); Anion Gap 11 mmol/L; Blood Urea Nitrogen 35 mg/dL (7-17); Calcium 9.4 mg/dL (8.4-10.2); Carbon Dioxide 27 mmol/L (22-30); Chloride 98 mmol/L (98-107); Glucose 322 mg/dL (74-99); Non-African American GFR(CKD) 58 (>60 ml/min/1.73 sqM); Potassium 4.2 mmol/L (3.5-5.1); Sodium 136 mmol/L (137-145)
[2024-11-30] MEDS: METOPROLOL TARTRATE 25 MG TAB PO STA (09:49)
--- NOTE | 2024-11-30 11:33 | P.PN ---
Subjective HISTORY OF PRESENT ILLNESS: This is a 74-year-old female with a past medical history significant for hyperlipidemia, AAA, PVCs, nonsustained ventricular tachycardia, atrial tachycardia, COPD, pulmonary nodules, and nicotine dependence. Patient follows in the office with Dr. Begum. We have been asked to see the patient in consultation for atrial flutter. Patient examined at the bedside in the emergency room. Patient presented to the hospital for chief complaint of shortness of breath. She is being treated for COPD exacerbation. Patient was found to be in atrial fibrillation. She denies any known history of atrial fibrillation. She remains in atrial fibrillation at the time of examination with heart rate around 110. DIAGNOSTICS: - EKG reveals A-fib with RVR. - Chest xray clinical correlation for mild congestive heart failure. Small right pleural effusion. - Laboratory data: WBC 3.62. Hemoglobin 12.2. Platelet count 201. Sodium 138. Potassium 4.3. BUN 23. Creatinine 0.90. Troponin negative x 1. proBNP 6380. - Most recent echocardiogram obtained in January 2023 revealed normal EF, mild AI, moderate MR -Patient underwent Lexiscan stress test in January 2023 which was negative for ischemia - Cardiac catheterization history: Patient denies 11/28/2024 Patient examined this morning at bedside. Patient currently denies chest pain or pressure. She denies shortness of breath. She remains in atrial fibrillation with a heart rate between [id number]. Echocardiogram being performed at the bedside reveals cardiomyopathy with thickened pericardium and chronic pericarditis. Patient does report having COVID in April 2024 for which she states she had for a long time and her symptoms persisted for a while. She also reports having bronchitis 2-3 times after that. 11/29/2024 Patient examined this morning at bedside. Patient currently denies chest pain or pressure. She reports improvement in her shortness of breath. Vital signs are stable. Telemetry reveals atrial fibrillation with a heart rate of 105. 11/30/2024 Patient examined this morning at bedside. Patient currently denies chest pain or pressure. She denies shortness of breath. Vital signs are stable. Telemetry Veals atrial fibrillation with heart rate around 105. PHYSICAL EXAM: VITAL SIGNS: Reviewed. GENERAL: Well-developed in no acute distress. HEENT: Head is normocephalic. Pupils are equal, round. Sclerae anicteric. Mucous membranes of the mouth are moist. Neck supple. No JVD or thyromegaly LUNGS: Respirations even and unlabored. Lungs diminished with bilateral wheezing HEART: Irregular rate and rhythm. S1 and S2 heard. ABDOMEN: Soft. Nondistended. Nontender. EXTREMITIES: Normal range of motion. No clubbing or cyanosis. Peripheral pulses intact. No lower extremity edema NEUROLOGIC: Awake and alert. Oriented x 3. ASSESSMENT: Shortness of breath Acute COPD exacerbation New onset atrial fibrillation with RVR History of AAA status post endovascular repair History of PVCs History of nonsustained ventricular tachycardia History of atrial tachycardia Hyperlipidemia History of pulmonary nodules Nicotine dependence History of prolonged COVID, April 2024 Cardiomyopathy, suspect nonischemic Thickened pericardium with evidence of chronic pericarditis, suspect viral myopericarditis PLAN: Echocardiogram being performed at the bedside reveals cardiomyopathy with thickened pericardium and chronic pericarditis. Patient does report having COVID in April 2024 that took her a long time to recover from. Suspect viral myopericarditis from history of COVID Continue current cardiac medications including amiodarone, Eliquis, aspirin, Farxiga, metoprolol, Entresto, Aldactone Increase metoprolol to 100 mg twice daily Recommend cardioversion in 4 weeks Stable for discharge from a cardiac standpoint Patient to follow-up postdischarge with Dr. Begum We will sign off. Please reconsult if needed. Nurse practitioner note has been reviewed by physician. Signing provider agrees with the documented findings, assessment, and plan of care documented by [employer] as a scribe. Objective - Vital Signs Vital signs: Vital Signs Temp 98.0 F 11/30/24 09:01 Pulse 99 11/30/24 09:03 Resp 18 11/30/24 09:03 BP 140/89 11/30/24 09:01 Pulse Ox 95 11/30/24 09:01 FiO2 Intake & Output 11/29/24 11/30/24 11/30/24 18:59 06:59 18:59 Intake Total 580 150 Balance 580 150 Weight 51.9 kg Intake: Oral 580 150 Other: Voiding Method Toilet Toilet Toilet # Voids 1 # Bowel Movements 0 - Labs CBC & Chem 7: 11/29/24 07:20 11/30/24 08:35 Labs: Abnormal Lab Results - Last 24 Hours (Table) 11/29/24 11/29/24 11/29/24 Range/Units 11:47 16:56 20:23 Sodium (137-145) mmol/L BUN (7-17) mg/dL Glucose (74-99) mg/dL POC Glucose (mg/dL) 195 H 200 H 217 H (70-110) mg/dL 11/30/24 11/30/24 Range/Units 06:04 08:35 Sodium 136 L (137-145) mmol/L BUN 35 H (7-17) mg/dL Glucose 322 H (74-99) mg/dL POC Glucose (mg/dL) 216 H (70-110) mg/dL Microbiology - Last 24 Hours (Table) 11/29/24 16:00 Gram Stain - Preliminary Sputum 11/26/24 13:16 Blood Culture - Preliminary Blood
--- NOTE | 2024-11-30 15:45 | P.DS ---
Providers Date of admission: 11/26/24 15:43 Expected date of discharge: 11/30/24 Attending physician: Ronnell Tripp MD Consults: 11/26/24 15:43 Consult Physician Routine Consulting Provider: Raphael Belcehr Consult Reason/Comments: rudi Do you want consulting provider notified?: Yes Primary care physician: Michael Tovar MD Hospital Course: 74 year old F with PMH of COPD on 2L home O2, Anxiety, HLD, GERD presents to the ED for SOB + LE swelling. Breathing progressively getting worse over the past week, worse with exertion. Reports a cough productive of clear sputum. Also reports LE swelling getting worse over the past 3 days. She denies any headache, N/V, fever or chills, chest pain, palpitations, changes in urination or bowel habits. No changes in appetite or weight. No dizziness, numbness/weakness/tinging of the extremities. In the ED she underwent extensive evaluation. BP 151/103, HR 120, RR 26, T 97.9F, 94% on RA. Labs significant for MCV 98.8, bicarb 33, AST 96, ALT 135, alk phos 211, Trop 0.02, BNP 6380. COVID/RSV/Flu neg. CXR mild CHF. CXR showed sinus tacycardia with RBBB. Telemetry appears to be irregular with HR as high as 140s during the encounter. Patient is admitted for further workup and management. Started on bronchodilators and Lasix IV along with Cardizem drip for A-Fib. Diuresed well, Lasix IV discontinued. Echo came back with EF 30%, Cardiology started Aldactone, Amiodarone, Eliquis, Entresto, Farxiga and Metoprolol. 11/27 Patient was seen and examined. Breathing improved. CBC, Coag panel, CMP significant for WBC 3.62, RBC 3.81, MCV 97.6, bicarb 33, BUN 23, glu 224, AST 42, ALT 87, alk phos 166, total protein 5.9. TSH 0.646. 11/28 Patient was seen and examined. Preliminary Echo results show cardiomyopathy with chronic pericarditis. Started on Aldactone, Entresto and Amiodarone by Cardiology with plans for cardioversion in 4 weeks. 11/29 Patient was seen and examined. Echo shows EF 30%. Cardiology has cleared the patient for discharge, Dr. Belcher would like to monitor the patient for one more day. CBC and BMP significant for WBC 11.18, MCV 98.6, bicarb 31, BUN 34, Cr 1.15, glu 156. 11/30 Patient was seen and examined. Cardiology has increased Metoprolol to 100 mg PO BID and cleared the patient for discharge. BMP significant for Na 136, BUN 35, glu 322. Discharge Plan: Diet: 1.5 L fluid restriction and low salt diet. Prescrition sent for Aldactone, Amiodarone, Eliquis, Entresto, Farxiga and Metoprolol. Continue Prednisone 40 mg PO QD x 2 more days. Blood glucose should improve after completion of steroids. Follow up with Cardiology on 12/10 and Pulmonary on 02/11. Follow up with PCP on 12/06. General: non toxic, no distress, appears at stated age Derm: warm, dry Head: atraumatic, normocephalic, symmetric Eyes: EOMI, no lid lag, anicteric sclera Mouth: no lip lesion, mucus membranes moist Cardiovascular: S1S2 irreg, no murmur Lungs: Decreased BS bilateral, no rhonchi, no rales , no accessory muscle use Ext: no gross muscle atrophy, no edema, no contractures Neuro: no focal neuro deficits Psych: Alert, oriented, appropriate affect Discharge Diagnosis: Acute on chronic hypoxic respiratory failure secondary to COPD exacerbation with concerns for CHF exacerbation COPD exacerbation Cardiomyopathy with chronic pericarditis Atrial fibrillation with RVR CASSIA Transaminitis Anxiety HLD GERD This complex discharge took 35 minutes to complete. Patient Condition at Discharge: Stable Plan - Discharge Summary Discharge Rx Participant: No New Discharge Prescriptions: New Spironolactone [Aldactone] 25 mg PO DAILY #30 tab Amiodarone [Cordarone] 200 mg PO BID #60 tab predniSONE [Deltasone] 40 mg PO DAILY #4 tab Apixaban [Eliquis] 5 mg PO BID #60 tab Sacubitril/Valsartan [Entresto 24 mg-26 mg Tablet] 1 each PO BID #60 tab Dapagliflozin Propanediol [Farxiga] 10 mg PO DAILY #30 tab Metoprolol Tartrate [Lopressor] 100 mg PO BID #120 tab Continue ALPRAZolam [Xanax] 0.25 tab PO DAILY PRN PRN Reason: Anxiety Albuterol Nebulized [Ventolin Nebulized] 2.5 mg INHALATION RT-Q4H PRN PRN Reason: Shortness Of Breath Albuterol Sulfate [Proair Hfa] 2 puff INHALATION RT-QID PRN PRN Reason: Shortness Of Breath Omeprazole [PriLOSEC] 20 mg PO DAILY Fluticasone Nasal [place] [Flonase Nasal [place]] 1 spray EA NOSTRIL BID Alendronate Sodium [Fosamax] 70 mg PO WEEKLY Cetirizine HCl 10 mg PO DAILY Fluticasone/Umeclidin/Vilanter [Trelegy Ellipta 100-62.5-25] 1 puff INHALATION RT-DAILY Aspirin [Adult Low Dose Aspirin EC] 81 mg PO DAILY guaiFENesin [Mucinex] 1,200 mg PO Q12H PRN PRN Reason: Congestion Dicyclomine [Bentyl] 10 mg PO DIRECTED Changed Atorvastatin [Lipitor] 40 mg PO DAILY #0 Discontinued Metoprolol Succinate (ER) [Toprol Xl] 12.5 mg PO DIRECTED Discharge Medication List ALPRAZolam [Xanax] 0.25 tab PO DAILY PRN 05/31/14 [History] Albuterol Nebulized [Ventolin Nebulized] 2.5 mg INHALATION RT-Q4H PRN 01/21/17 [History] Albuterol Sulfate [Proair Hfa] 2 puff INHALATION RT-QID PRN 01/21/17 [History] Alendronate Sodium [Fosamax] 70 mg PO WEEKLY 01/21/17 [History] Fluticasone Nasal [place] [Flonase Nasal [place]] 1 spray EA NOSTRIL BID 01/21/17 [History] Omeprazole [PriLOSEC] 20 mg PO DAILY 01/21/17 [History] Aspirin [Adult Low Dose Aspirin EC] 81 mg PO DAILY 02/28/23 [History] guaiFENesin [Mucinex] 1,200 mg PO Q12H PRN 03/02/23 [History] Cetirizine HCl 10 mg PO DAILY 01/01/24 [History] Dicyclomine [Bentyl] 10 mg PO DIRECTED 11/26/24 [History] Fluticasone/Umeclidin/Vilanter [Trelegy Ellipta 100-62.5-25] 1 puff INHALATION RT-DAILY 11/26/24 [History] Amiodarone [Cordarone] 200 mg PO BID #60 tab 11/29/24 [Rx] Apixaban [Eliquis] 5 mg PO BID #60 tab 11/29/24 [Rx] Atorvastatin [Lipitor] 40 mg PO DAILY #0 11/29/24 [Rx] Dapagliflozin Propanediol [Farxiga] 10 mg PO DAILY #30 tab 11/29/24 [Rx] Sacubitril/Valsartan [Entresto 24 mg-26 mg Tablet] 1 each PO BID #60 tab 11/29/24 [Rx] Spironolactone [Aldactone] 25 mg PO DAILY #30 tab 11/29/24 [Rx] predniSONE [Deltasone] 40 mg PO DAILY #4 tab 11/29/24 [Rx] Metoprolol Tartrate [Lopressor] 100 mg PO BID #120 tab 11/30/24 [Rx] Follow up Appointment(s)/Referral(s): Robert Begum MD [STAFF PHYSICIAN] - 12/10/24 Michael Tovar MD [Primary Care Provider] - 12/06/24 9:00 am Raphael Belcher MD [STAFF PHYSICIAN] - 02/11/25 10:00 am Patient Instructions/Handouts: Heart Failure (DC), COPD (Chronic Obstructive Pulmonary Disease) (DC) Activity/Diet/Wound Care/Special Instructions: Diet: 1.5 L fluid restriction, low salt Discharge Disposition: HOME SELF-CARE
--- NOTE | 2024-11-30 18:55 | P.PN ---
Subjective Progress Note Date: 11/30/24 Patient is a 74-year-old female with past medical history significant for COPD, former smoker, lung nodule, hypertension, hyperlipidemia, abdominal aneurysm with previous stent. 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 Belcher, recent PFT done August, remarkable for an FEV1/FVC ratio 48%, FEV1 0.65 L or 30% of predicted, DLCO 38% of predicted uncorrected for hemoglobin. Currently uses a Trelegy inhaler. She quit smoking over 10 years ago. Present emergency department yesterday afternoon with a chief complaint of increased work of breathing and leg swelling. Onset of symptoms 24 to 48 hours prior. While being worked up in the emergency department reportedly found to be in atrial fibrillation with RVR on telemetry. Placed on Cardizem infusion. Chest x-ray remarkable for mild diffuse increased lung markings bilaterally with small right pleural effusion. NT proBNP 6380. Viral screen negative for influenza A/B, RSV, COVID. CBC unremarkable for leukocytosis. Hemoglobin 13.4 g/dL. Platelets 199. BMP fairly unremarkable, electrolytes WDL, creatinine 0.79, g lucose 96. LFTs mildly elevated. Troponin 0.02. Patient currently being evaluated emergency department. Resting comfortably on 2 L/min cannula. Endorses occasional cough with white sputum. No purulent sputum or hemoptysis. No fevers or chills. Denies sick contacts. Denies chest pain, heart p alpitations, syncopal events, orthopnea. Currently, Cardizem is infusing at 2.5 mg/h. Rhythm on bedside monitor appears regular. Blood pressure normotensive. Previously transitioned to Eliquis. Currently receiving Lasix 20 mg 3 times daily. She has been voiding often. States the swelling in her legs is improved, as well as, her work of breathing. On 11/28/2024, the patient is feeling better. She seems to be less short of breath compared to yesterday. Less bronchospastic and wheezy. She remains in atrial fibrillation. Rate is under better control for now. The patient was started on metoprolol 75 mg p.o. twice daily and she was taken off the Cardizem drip. He was also started on Aldactone 25 mg p.o. daily and Entresto 1 tablet a day. She is also on amiodarone 200 mg p.o. twice daily. Echocardiogram was obtained and the patient was found to have systolic heart failure with an ejection fraction of 30 to 35%. There is mild increase in the septal wall thickness and moderate increase in the posterior wall thickness. Moderate increase in the left ventricular volume and small pericardial effusion. No evidence of any significant pulmonary hypertension. Questionable PFO. Blood work from yesterday was noted. No repeat blood work from today. Blood sugars up to 86. She is on insulin sliding scale coverage. She remains on IV Solu-Medrol 60 mg every 6 hours. She remains on DuoNeb updrafts. On 11/29/2024, the patient is feeling better and the patient is currently on room air oxygen. Remains in atrial fibrillation. She is diagnosed having CHF with impaired LV function and the patient is currently on a combination of treatment including Entresto, Lopressor, and Aldactone. She is also on Farxiga. She was started on anticoagulation with Eliquis regarding her atrial fibrillation. The rate is controlled for now. Her COPD is further being optimized and the patient remains on DuoNeb updrafts and IV Solu-Medrol. No chest pain. BUN 34 with a creatinine of 1.1. WBC count 11.1 with a platelet count of 252 and hemoglobin 13.6. 11/30/2024, the patient is doing well. No specific complaints. She is on room air oxygen. Limited cough and wheezing. Nevertheless, the patient remains on bronchodilators and the patient will be switched to a prednisone burst taper. In terms of her cardiomyopathy, the patient is currently on metoprolol 100 mg p.o. twice daily, Farxiga 10 mg p.o. daily, Entresto 1 tablet twice daily and Aldactone 25 mg p.o. daily. The patient is also on amiodarone 200 mg p.o. twice a day. Cardiac rhythm remains atrial fibrillation. Rate is controlled for now. CHF has been optimized. Electrolytes are all within normal limits. Sodium is at 136, BUN 35 with a creatinine of 0.98. She is currently on room air oxygen. Objective - Vital Signs Vital signs: Vital Signs Temp 98.0 F 11/30/24 09:01 Pulse 99 11/30/24 09:03 Resp 18 11/30/24 09:03 BP 140/89 11/30/24 09:01 Pulse Ox 95 11/30/24 09:01 FiO2 Intake & Output 11/29/24 11/30/24 11/30/24 18:59 06:59 18:59 Intake Total 580 150 Balance 580 150 Weight 51.9 kg Intake: Oral 580 150 Other: Voiding Method Toilet Toilet Toilet # Voids 1 # Bowel Movements 0 - Exam GENERAL EXAM: Alert, 74-year-old female, on room air oxygen,, comfortable in no apparent distress. HEAD: Normocephalic and atraumatic EYES: Normal reaction of pupils, equal size. NOSE: Clear with pink turbinates. THROAT: No erythema or exudates. NECK: No masses, no JVD. CHEST: No chest wall deformity. LUNGS: Equal air entry with no crackles, wheeze, rhonchi or dullness. No conversational dyspnea or accessory muscle use.. CVS: S1 and S2 normal with no audible murmur, irregular rhythm. No extra heart sounds ABDOMEN: No hepatosplenomegaly, active bowel sounds, no guarding or rigidity. SPINE: No scoliosis or deformity SKIN: No rashes CENTRAL NERVOUS SYSTEM: No focal deficits, tone is normal in all 4 extremities. EXTREMITIES: There minimal bilateral lower extremity edema. No clubbing or cyanosis. Peripheral pulses are intact. - Labs CBC & Chem 7: 11/29/24 07:20 11/30/24 08:35 Labs: Abnormal Lab Results - Last 24 Hours (Table) 11/29/24 11/29/24 11/30/24 Range/Units 16:56 20:23 06:04 Sodium (137-145) mmol/L BUN (7-17) mg/dL Glucose (74-99) mg/dL POC Glucose (mg/dL) 200 H 217 H 216 H (70-110) mg/dL 11/30/24 Range/Units 08:35 Sodium 136 L (137-145) mmol/L BUN 35 H (7-17) mg/dL Glucose 322 H (74-99) mg/dL POC Glucose (mg/dL) (70-110) mg/dL Microbiology - Last 24 Hours (Table) 11/29/24 16:00 Gram Stain - Preliminary Sputum 11/26/24 13:16 Blood Culture - Preliminary Blood Assessment and Plan Assessment: Acute hypoxemic respiratory failure, secondary to acute COPD/CHF exacerbation. Clinically stable and the patient is currently on room air oxygen Acute COPD exacerbation, improving CHF with systolic heart failure and ejection fraction of 30 to 35% New onset atrial fibrillation, rate is under better control and the patient is currently off Cardizem drip, maintained on amiodarone and metoprolol and anticoagulation with Eliquis. Severe chronic obstructive pulmonary disease, with FEV1 30% improvement, currently maintained on Trelegy minutes inhaler History of right middle lobe pulmonary nodule, measuring 1.3 cm, being followed on outpatient basis Hypertension History of hyperlipidemia History of abdominal aortic aneurysm, with previous endovascular repair Former tobacco smoker, quit over 10 years ago Plan: Clinically stable and the patient is to be discharged home Complete prednisone burst taper on outpatient basis Continue DuoNeb nebulized treatments [id number] Continue optimizing CHF Continue amiodarone 200 mg p.o. twice daily Metoprolol 75 mg p.o. twice daily Aldactone 25 mg p.o. daily Entresto 1 tablet a day Anticoagulation with Eliquis Echo was noted Will continue to follow on outpatient basis. The patient is to be discharged home. To be followed up by pulmonary and cardiology.
[2024-11-30] MEDS ORDERED: METOPROLOL TARTRATE 50 MG TAB PO SCH (21:00)
--- NOTE | 2024-12-05 09:45 | CDI ---
Documentation Clarification Form Date: 12/05/2024 09:35:06 AM From: Lorenza Preston Phone: Admit Date: 11/26/2024 03:43:00 PM Patient Name: Fiona Pierre Visit Number: [id number] Discharge Date: 11/30/2024 11:50:00 AM ATTENTION: The Clinical Documentation Specialists (CDI) and [facility] Coding Staff appreciate your assistance in clarifying documentation. Please respond to the clarification below the line at the bottom and electronically sign. The CDI & [facility] Coding staff will review the response and follow-up if needed. Please note: Queries are made part of the Legal Health Record. If you have any questions, please contact the author of this message via ITS. Doctor/Provider: oRnnell Tripp Your patient has the documented diagnosis of CHF withsystolicheart failure per Progress Note 11/29 and 11/30. Additional information regarding the acuity of CHF is requested. History/Risk Factors: 74yo F, ACHRF, AECOPD, CHF, CM w chronic pericarditis, HTN, A Fib, CASSIA, transaminitis, anxiety, HLD, GERD Clinical Indicators: VS/Pulse OX: 11/26/2505/ 12:08 14:43 14:56 Temperature 97.9 F Pulse Rate 120 104 94 Respiratory 26 18 18 [id number] O2 Sat by Pulse 94 BNP: 6380 Echo: patient was found to havesystolicheart failure with an ejection fraction of 30 to 35%. Chest X Ray: Clinical correlation for mildcongestive heart failure. 2. Small rightpleural effusion. Treatment: Diuresed well, Lasix IV discontinued. Echo came back with EF 30%, Cardiology started Aldactone, Amiodarone, Eliquis, Entresto, Farxiga and Metoprolol. In your professional opinion, can you please clarify the acuity of CHF if known? [x ] Acute Systolic Heart Failure (reduced EF) [ ] Acute on Chronic Systolic Heart Failure (reduced EF) [ ] Other, please specify [ ] Unable to determine (Template Last Revised: July 2020) MTDD
--- NOTE | 2024-12-13 22:19 | CDI ---
Documentation Clarification Form Date: 12/13/2024 10:03:11 PM From: Lorenza Preston Phone: Admit Date: 11/26/2024 03:43:00 PM Patient Name: Fiona Pierre Visit Number: [id number] Discharge Date: 11/30/2024 11:50:00 AM ATTENTION: The Clinical Documentation Specialists (CDI) and [facility] Coding Staff appreciate your assistance in clarifying documentation. Please respond to the clarification below the line at the bottom and electronically sign. The CDI & [facility] staff will review the response and follow-up if needed. Please note: Queries are made part of the Legal Health Record. If you have any questions, please contact the author of this message via ITS. Doctor/Provider: Ronnell Tripp Your patient has diagnostic/radiology results: A1C 6.5. Please clarify if there is an additional diagnosis and/or clinical significance related to this result. History/Risk Factors: 74yo F, ACHRF,AECOPD,ASHF, CM wchronic pericarditis, HTN,A Fib,CASSIA,transaminitis,anxiety,HLD,GERD Clinical indicators: Glucose: 11/26 96 11/27 224 11/28 158 11/29 156-286 Treatment: Diet: 1. 5 L fluidrestrictionand low salt diet. Prescription sent for Aldactone, Amiodarone, Eliquis, Entresto, Farxiga and Metoprolol. Continue Prednisone 40 mg PO QD x 2 more days. Blood glucose should improve after completion of steroids. Follow upwith Cardiology on 12/10 and Pulmonary on 02/11. Follow upwith PCP on 12/06. Is there an additional diagnosis and/or clinical significance related to the above diagnostic/radiology result? [ x ] Hyperglycemia due to steroids [ ] Diabetes Mellitus with hyperglycemia [ ] Result is not clinically significant (no additional diagnosis) [ ] Other, please specify [ ] Unable to determine (Template Last Reviewed: July 2020) MTDD
== END 2024-11-30 11:50 | disposition home or self-care (01) | DRG 291 ==
LOC: EC 11:42 → 3SCARD 15:43
PROVIDERS: ADMIT Family Medicine; ATTEND Family Medicine
DX: I11.0 Hypertensive heart disease with heart failure (principal); I50.21 Acute systolic (congestive) heart failure; J96.21 Acute and chronic respiratory failure with hypoxia; I31.39 Other pericardial effusion (noninflammatory); J44.1 Chronic obstructive pulmonary disease with (acute) exacerbation; I48.92 Unspecified atrial flutter; Z95.828 Presence of other vascular implants and grafts; N17.8 Other acute kidney failure; I42.9 Cardiomyopathy, unspecified; I48.91 Unspecified atrial fibrillation; E78.5 Hyperlipidemia, unspecified; R91.1 Solitary pulmonary nodule; R73.9 Hyperglycemia, unspecified; T38.0X5A Adverse effect of glucocorticoids and synthetic analogues, initial encounter; N14.19 Nephropathy induced by other drugs, medicaments and biological substances; T46.5X5A Adverse effect of other antihypertensive drugs, initial encounter; R74.01 Elevation of levels of liver transaminase levels; F41.9 Anxiety disorder, unspecified; K21.9 Gastro-esophageal reflux disease without esophagitis; R91.8 Other nonspecific abnormal finding of lung field; Z99.81 Dependence on supplemental oxygen; Z79.82 Long term (current) use of aspirin; Z79.51 Long term (current) use of inhaled steroids; Z79.899 Other long term (current) drug therapy; Z79.83 Long term (current) use of bisphosphonates; Z87.891 Personal history of nicotine dependence; Z86.79 Personal history of other diseases of the circulatory system
CPT/HCPCS: 36415; 71046; 80048; 80053; 83036; 83605; 83735; 83880; 84443; 84484; 85025; 85027; 85610; 85730; 87040; 87070; 87077; 87186; 87205; 87636; 93005; 93306; 94640; 94760; 96365; 96366; 96368; 96375; 96376; 99291

== ENCOUNTER 2024-12-04 15:37 | Observation (INO) | payer MEDICARE, OTHER ==
--- NOTE | 2024-12-04 16:24 | ED ---
General Adult HPI - General Chief complaint: Recheck/Abnormal Lab/Rx Stated complaint: Coughing up blood Time Seen by Provider: 12/04/24 15:55 Source: patient, family, RN notes reviewed Mode of arrival: ambulatory Limitations: no limitations - History of Present Illness Initial comments: This is a 74-year-old female with history including A-fib, heart failure, COPD presenting with family for hemoptysis x 6 days. Patient states she was recently hospitalized for CHF last , coughing up blood-tinged phlegm at the time, noting she is coughing up more bright red blood and phlegm since her discharge. Patient states she is not at the need for her home oxygen since discharge, noting worsening hemoptysis following use of nebulizer. Patient states she was recently started on blood thinners as well. Denies fever, chills, fatigue, [address] pain, dyspnea, dizziness. Onset/Timin -: days(s) - Related Data Home Medications Medication Instructions Recorded Confirmed ALPRAZolam [Xanax] 0.25 tab PO DAILY PRN 05/31/14 12/04/24 Albuterol Nebulized [Ventolin 2.5 mg INHALATION RT-Q4H PRN 01/21/17 12/04/24 Nebulized] Albuterol Sulfate [Proair Hfa] 2 puff INHALATION RT-QID PRN 01/21/17 12/04/24 Alendronate Sodium [Fosamax] 70 mg PO WEEKLY 01/21/17 12/04/24 Fluticasone Nasal [place] [Flonase 1 spray EA NOSTRIL BID 01/21/17 12/04/24 Nasal [place]] Omeprazole [PriLOSEC] 20 mg PO DAILY 01/21/17 12/04/24 Aspirin [Adult Low Dose Aspirin EC] 81 mg PO DAILY 02/28/23 12/04/24 guaiFENesin [Mucinex] 1,200 mg PO Q12H PRN 03/02/23 12/04/24 Cetirizine HCl 10 mg PO DAILY 01/01/24 12/04/24 Dicyclomine [Bentyl] 10 mg PO DIRECTED 11/26/24 12/04/24 Fluticasone/Umeclidin/Vilanter 1 puff INHALATION RT-DAILY 11/26/24 12/04/24 [Trelegy Ellipta 100-62.5-25] Sacubitril/Valsartan [Entresto 24 1 tab PO BID 12/04/24 12/04/24 mg-26 mg Tablet] Previous Rx's Medication Instructions Recorded Amiodarone [Cordarone] 200 mg PO BID #60 tab 11/29/24 Apixaban [Eliquis] 5 mg PO BID #60 tab 11/29/24 Atorvastatin [Lipitor] 40 mg PO DAILY #0 11/29/24 Dapagliflozin Propanediol [Farxiga] 10 mg PO DAILY #30 tab 11/29/24 Spironolactone [Aldactone] 25 mg PO DAILY #30 tab 11/29/24 Metoprolol Tartrate [Lopressor] 100 mg PO BID #120 tab 11/30/24 Allergies Allergy/AdvReac Type Severity Reaction Status Date / Time guaifenesin [From Robitussin] Allergy Severe Anaphylaxis Verified 12/04/24 19:57 propoxyphene napsylate Allergy Severe Swelling Verified 12/04/24 19:57 [From Darvocet-N] Sulfa (Sulfonamide Allergy Severe Swelling Verified 12/04/24 19:57 Antibiotics) metronidazole [From Flagyl] Allergy Rash/Hives Verified 12/04/24 19:57 Review of Systems ROS Statement: Those systems with pertinent positive or pertinent negative responses have been documented in the HPI. ROS Other: All systems not noted in ROS Statement are negative. Past Medical History Past Medical History: Atrial Fibrillation, Heart Failure, COPD, Fibromyalgia, GE RD/Reflux, Hypertension, Osteoarthritis (OA) Additional Past Medical History / Comment(s): "Pre-Diabetic." DDD WITH BACK PAIN. HX PANCREATITIS. ABDOMINAL ANEURYSM. HX EPISODE OF IRREGULAR HEARTBEAT. Varicose veins. High blood pressure when nervous, TAKEN OFF BLOOD PRESSURE M EDICATION. History of Any Multi-Drug Resistant Organisms: None Reported Past Surgical History: Back Surgery, Hysterectomy, Orthopedic Surgery Additional Past Surgical History / Comment(s): BILATERAL CARPAL TUNNEL SURGERY. Past Anesthesia/Blood Transfusion Reactions: No Reported Reaction, Motion Sick ness Past Psychological History: Anxiety Smoking Status: Former smoker Past Alcohol Use History: None Reported Past Drug Use History: None Reported - Past Family History Mother History Unknown: Yes Family Medical History: Deep Vein Thrombosis (DVT) Father History Unknown: Yes Family Medical History: Congestive Heart Failure (CHF), Diabetes Mellitus Additional Family Medical History / Comment(s): of [place] General Exam General appearance: alert, in no apparent distress Head exam: Present: atraumatic, normocephalic, normal inspection Eye exam: Present: normal appearance, PERRL, EOMI. Absent: scleral icterus, conjunctival injection, periorbital swelling ENT exam: Present: normal exam, mucous membranes moist Neck exam: Present: normal inspection. Absent: tenderness, meningismus, lymphadenopathy Respiratory exam: Present: decreased breath sounds. Absent: respiratory distress, wheezes, rales, rhonchi, stridor, accessory muscle use Cardiovascular Exam: Present: regular rate, normal rhythm, normal heart sounds. Absent: systolic murmur, diastolic murmur, rubs, gallop, clicks GI/Abdominal exam: Present: soft, normal bowel sounds. Absent: distended, tenderness, guarding, rebound, rigid Extremities exam: Present: normal inspection, full ROM, normal capillary refill. Absent: tenderness, pedal edema, joint swelling, calf tenderness Back exam: Present: normal inspection Neurological exam: Present: alert, oriented X3, CN II-XII intact Psychiatric exam: Present: normal affect, normal mood Skin exam: Present: warm, dry, intact, normal color. Absent: rash Course Vital Signs 12/04/24 12/04/24 12/04/24 15:45 19:49 23:47 Temperature 98 F 98.2 F 97.8 F Pulse Rate 65 74 60 Respiratory 18 16 18 Rate Blood Pressure 138/77 121/74 119/61 O2 Sat by Pulse 92 L 94 L 96 Oximetry Medical Decision Making - Medical Decision Making Was pt. sent in by a medical professional or institution (, PA, HAND ENGRAVER, urgent care, hospital, or custodial...) When possible be specific @ -No Did you speak to anyone other than the patient for history (EMS, parent, family, police, friend...)? What history was obtained from this source @ -No Did you review nursing and triage notes (agree or disagree)? Why? @ -I reviewed and agree with nursing and triage notes Were old charts reviewed (outside hosp., previous admission, EMS record, old EKG, old radiological studies, urgent care reports/EKG's, custodial records)? Report findings @ -Doppler echocardiogram shows LVEF 30-35% from 11/28/2024. Differential Diagnosis (chest pain, altered mental status, abdominal pain women, abdominal pain men, vaginal bleeding, weakness, fever, dyspnea, syncope, headache, dizziness, GI bleed, back pain, seizure, CVA, palpatations, mental health, musculoskeletal)? @ -Differential Dyspnea: Coronary syndrome, arrhythmia, tamponade, asthma, COPD, pulmonary embolism, pneumonia, pneumothorax, pulmonary effusion, anaphylaxis, diabetic ketoacidosis, flailed chest, pulmonary contusion, diaphragmatic rupture, anemia, neuromuscular, this is not meant to be an all-inclusive list. EKG interpreted by me (3pts min.). @ -As above X-rays interpreted by me (1pt min.). @ -CXR shows no acute pulmonary process CT interpreted by me (1pt min.). @ -None done U/S interpreted by me (1pt. min.). @ -None done What testing was considered but not performed or refused? (CT, X-rays, U/S, labs)? Why? @ -None What meds were considered but not given or refused? Why? @ -None Did you discuss the management of the patient with other professionals (professionals i.e. , PA, HAND ENGRAVER, lab, RT, psych nurse, administrator social welfare, manager epic, teacher, ethics officer, case packer and sealer)? Give summary @ -Spoke to sound physician for observation admission Was smoking cessation discussed for >3mins.? @ -No Was critical care preformed (if so, how long)? @ -No Were there social determinants of health that impacted care today? How? (Homelessness, low income, unemployed, alcoholism, drug addiction, transportation, low edu. Level, literacy, decrease access to med. care, custodial, rehab)? @ -No Was there de-escalation of care discussed even if they declined (Discuss DNR or withdrawal of care, Hospice)? DNR status @ -No What co-morbidities impacted this encounter? (DM, HTN, Smoking, COPD, CAD, Cancer, CVA, ARF, Chemo, Hep., AIDS, mental health diagnosis, sleep apnea, morbid obesity)? @ -Heart failure, COPD, atrial fibrillation Was patient admitted / discharged? Hospital course, mention meds given and route, prescriptions, significant lab abnormalities, going to OR and other pertinent info. @ -Lab work notable for potassium 5.3, BUN 21, glucose 212 and BNP 5540. Liver enzymes mildly elevated with WBC 8.48, stable CKD and negative troponin. CXR shows no acute pulmonary process. Patient provided p.bright [place]. [facility] to [facility] for observation admission with temporary hold on patient's Eliquis. Discussed patient with Dr. Franco. Undiagnosed new problem with uncertain prognosis? @ -No Drug Therapy requiring intensive monitoring for toxicity (Heparin, Nitro, Insulin, Cardizem)? @ -No Were any procedures done? @ -No Diagnosis/symptom? @ -Hemoptysis Acute, or Chronic, or Acute on Chronic? @ -Acute Uncomplicated (without systemic symptoms) or Complicated (systemic symptoms)? @ -Uncomplicated Side effects of treatment? @ -No Exacerbation, Progression, or Severe Exacerbation? @ -No Poses a threat to life or bodily function? How? (Chest pain, [place], [place], pneumonia, PE, COPD, DKA, ARF, appy, cholecystitis, CVA, Diverticulitis, Homicidal, Suicidal, threat to staff... and all critical care pts) @ -No - Lab Data Result diagrams: 12/04/24 16:57 12/04/24 16:57 Lab Results 12/04/24 12/04/24 12/04/24 Range/Units 16:57 16:57 16:57 WBC 8.48 (4.50-10.00) 10*3/uL RBC 4.85 (4.10-5.20) 10*6/uL Hgb 15.1 H (12.0-15.0) g/dL Hct 46.6 H (37.2-46.3) % MCV 96.1 (80.0-97.0) fL MCH 31.1 (27.0-32.0) pg MCHC 32.4 (32.0-37.0) g/dL Plt Count 333 (140-440) 10*3/uL MPV 9.6 (9.5-12.2) fL Immature Gran % (Auto) 4.1 % Neutrophils % 87.7 % Lymphocytes % 5.1 % Monocytes % 2.7 % Eosinophils % 0.0 % Basophils % 0.4 % Immature Gran # 0.35 H (0.00-0.04) 10*3/uL Neutrophils # 7.44 (1.80-7.70) 10*3/uL Lymphocytes # 0.43 L (0.90-5.00) 10*3/uL Monocytes # 0.23 (0.20-1.00) 10*3/uL Eosinophils # 0.00 L (0.04-0.35) 10*3/uL Basophils # 0.03 (0.00-0.10) 10*3/uL PT 11.1 (10.0-12.5) sec INR 1.0 (<1.2) APTT 22.5 (22.0-30.0) sec Sodium 136 L (137-145) mmol/L Potassium 5.3 H (3.5-5.1) mmol/L Chloride 101 (98-107) mmol/L Carbon Dioxide 27 (22-30) mmol/L Anion Gap 8 mmol/L BUN 21 H (7-17) mg/dL Creatinine 1.04 (0.52-1.04) mg/dL Est GFR (CKD-EPI)AfAm 62 (>60 ml/min/1.73 sqM) Est GFR (CKD-EPI)NonAf 54 (>60 ml/min/1.73 sqM) Glucose 212 H (74-99) mg/dL Calcium 9.0 (8.4-10.2) mg/dL Total Bilirubin 0.6 (0.2-1.3) mg/dL AST 26 (14-36) U/L ALT 75 H (4-34) U/L Alkaline Phosphatase 140 H (38-126) U/L Troponin I (0.000-0.034) ng/mL NT-Pro-B Natriuret Pep 5540 pg/mL Total Protein 5.8 L (6.3-8.2) g/dL Albumin 3.6 (3.5-5.0) g/dL 12/04/24 Range/Units 16:57 WBC (4.50-10.00) 10*3/uL RBC (4.10-5.20) 10*6/uL Hgb (12.0-15.0) g/dL Hct (37.2-46.3) % MCV (80.0-97.0) fL MCH (27.0-32.0) pg MCHC (32.0-37.0) g/dL Plt Count (140-440) 10*3/uL MPV (9.5-12.2) fL Immature Gran % (Auto) % Neutrophils % % Lymphocytes % % Monocytes % % Eosinophils % % Basophils % % Immature Gran # (0.00-0.04) 10*3/uL Neutrophils # (1.80-7.70) 10*3/uL Lymphocytes # (0.90-5.00) 10*3/uL Monocytes # (0.20-1.00) 10*3/uL Eosinophils # (0.04-0.35) 10*3/uL Basophils # (0.00-0.10) 10*3/uL PT (10.0-12.5) sec INR (<1.2) APTT (22.0-30.0) sec Sodium (137-145) mmol/L Potassium (3.5-5.1) mmol/L Chloride (98-107) mmol/L Carbon Dioxide (22-30) mmol/L Anion Gap mmol/L BUN (7-17) mg/dL Creatinine (0.52-1.04) mg/dL Est GFR (CKD-EPI)AfAm (>60 ml/min/1.73 sqM) Est GFR (CKD-EPI)NonAf (>60 ml/min/1.73 sqM) Glucose (74-99) mg/dL Calcium (8.4-10.2) mg/dL Total Bilirubin (0.2-1.3) mg/dL AST (14-36) U/L ALT (4-34) U/L Alkaline Phosphatase (38-126) U/L Troponin I <0.012 (0.000-0.034) ng/mL NT-Pro-B Natriuret Pep pg/mL Total Protein (6.3-8.2) g/dL Albumin (3.5-5.0) g/dL Disposition Clinical Impression: Hemoptysis Disposition: ADMITTED IP TO THIS [facility] Condition: Good Time of Disposition: 19:00 Decision Date: 12/04/24 Decision Time: 19:00
--- NOTE | 2024-12-04 17:01 | XR ---
EXAMINATION TYPE: XR chest 2V DATE OF EXAM: 12/04/2024 4:48 PM COMPARISON: 11/26/2024 CLINICAL INDICATION: Female, 74 years old with history of Hemoptysis: Shortness of breath TECHNIQUE: XR chest 2V views of the chest are obtained. FINDINGS: Scattered senescent parenchymal changes noted. Hyperinflation compatible with COPD. No evidence for infiltrate. No evidence for atelectasis. Heart size is stable. Mediastinal structures are stable and grossly unremarkable. No evidence for hilar prominence. Degenerative changes dorsal spine. IMPRESSION: 1. No evidence for acute pulmonary disease. [facility], , 12/04/2024 4:59 PM
[2024-12-04 17:33] LABS: Basophils # (A) 0.03 10*3/uL (0.00-0.10); Basophils % (A) 0.4 %; Eosinophils # (A) 0.00 10*3/uL (0.04-0.35); Eosinophils % (A) 0.0 %; HCT 46.6 % (37.2-46.3); HGB 15.1 g/dL (12.0-15.0); Lymphocytes # (A) 0.43 10*3/uL (0.90-5.00); Lymphocytes % (A) 5.1 %; MCH 31.1 pg (27.0-32.0); MCHC 32.4 g/dL (32.0-37.0); MCV 96.1 fL (80.0-97.0); Monocytes # (A) 0.23 10*3/uL (0.20-1.00); Monocytes % (A) 2.7 %; Neutrophils # (A) 7.44 10*3/uL (1.80-7.70); Neutrophils % (A) 87.7 %; Platelet Count 333 10*3/uL (140-440); RBC 4.85 10*6/uL (4.10-5.20); RDW 13.0 % (11.5-14.5); WBC 8.48 10*3/uL (4.50-10.00)
[2024-12-04 17:59] LABS: INR 1.0 (<1.2); Partial Thromboplastin Time 22.5 sec (22.0-30.0); Prothrombin Time 11.1 sec (10.0-12.5)
[2024-12-04 18:01] LABS: ALT 75 U/L (4-34); AST 26 U/L (14-36); African American GFR (CKD) 62 (>60 ml/min/1.73 sqM); Albumin 3.6 g/dL (3.5-5.0); Alkaline Phosphatase 140 U/L (38-126); Anion Gap 8 mmol/L; Blood Urea Nitrogen 21 mg/dL (7-17); Calcium 9.0 mg/dL (8.4-10.2); Carbon Dioxide 27 mmol/L (22-30); Chloride 101 mmol/L (98-107); Glucose 212 mg/dL (74-99); Non-African American GFR(CKD) 54 (>60 ml/min/1.73 sqM); Potassium 5.3 mmol/L (3.5-5.1); Sodium 136 mmol/L (137-145); Total Protein 5.8 g/dL (6.3-8.2)
[2024-12-04 18:09] LABS: NT-Pro-B-Type Natriuretic Pept 5540 pg/mL
[2024-12-04] MEDS: SODIUM ZIRCONIUM CYCLOSILICATE 10 GM PACKET PO ONE (18:52)
[2024-12-04] MEDS ORDERED: NALOXONE 0.4 MG/ML 1 ML VIAL IV PRN (19:27)
[2024-12-04] MEDS ORDERED: ACETAMINOPHEN TAB 325 MG TAB PO PRN (19:27)
[2024-12-04] MEDS ORDERED: MORPHINE SULFATE 4 MG/ML SYRINGE IV PRN (19:27)
[2024-12-04] MEDS ORDERED: ALPRAZolam 0.25 MG TAB PO PRN (19:32)
[2024-12-04] MEDS ORDERED: ALBUTEROL NEBULIZED 2.5 MG/3 ML INHALATION PRN (19:32)
[2024-12-04] MEDS: METOPROLOL TARTRATE 50 MG TAB PO SCH (21:38)
[2024-12-04] MEDS: AMIODARONE 200 MG TAB PO SCH (21:38)
[2024-12-04] MEDS: SACUBITRIL/VALSARTAN 24 MG-26 MG TABLET PO SCH (21:38)
[2024-12-04] MEDS ORDERED: GUAIFENESIN 1200 MG PO PRN (23:43)
--- NOTE | 2024-12-05 01:15 | P.HPIM ---
History of Present Illness H&P Date: 12/05/24 Chief Complaint: Hemoptysis 74 y/o F with PMHx of COPD, Anxiety, HLD, GERD, and Afib presents with hemoptysis for 6 days. Patient was recently admitted at [facility] from 11/26 - 11/30 for acute on chronic respiratory failure 2/2 COPD with CHF and new onset Afib with RVR. Patient indicates that she was coughing up brownish sputum at the hospital last week and was told to come to the ER if the sputum became bright red. She indicated that she coughed up a quarter sized amount of bright red sputum 2x today along with 1 episode of a nosebleed. Patient shares that she is feeling the best she has all month. She denies any fevers/chills, SOB, heart palp., chest pain, N/V, swelling, wheezing. Review of Systems Constitutional: Reports as per HPI Ears, nose, mouth and throat: Reports as per HPI Cardiovascular: Reports irregular heart beat, Denies chest pain, Denies edema, Denies leg edema, Denies palpitations, Denies shortness of breath Respiratory: Denies dyspnea, Denies pain, Denies pleurisy Gastrointestinal: Reports as per HPI Genitourinary: Reports as per HPI Menstruation: Reports as per HPI Musculoskeletal: Reports as per HPI Integumentary: Reports as per HPI Neurological: Reports as per HPI Psychiatric: Reports as per HPI Endocrine: Reports as per HPI Past Medical History Past Medical History: Atrial Fibrillation, Heart Failure, COPD, Fibromyalgia, GERD/Reflux, Hypertension, Osteoarthritis (OA) Additional Past Medical History / Comment(s): "Pre-Diabetic." DDD WITH BACK PAIN. HX PANCREATITIS. ABDOMINAL ANEURYSM. HX EPISODE OF IRREGULAR HEARTBEAT. Varicose veins. High blood pressure when nervous, TAKEN OFF BLOOD PRESSURE MEDICATION. History of Any Multi-Drug Resistant Organisms: None Reported Past Surgical History: Back Surgery, Hysterectomy, Orthopedic Surgery Additional Past Surgical History / Comment(s): BILATERAL CARPAL TUNNEL SURGERY. Past Anesthesia/Blood Transfusion Reactions: No Reported Reaction, Motion Sickness Past Psychological History: Anxiety Smoking Status: Former smoker Past Alcohol Use History: None Reported Past Drug Use History: None Reported - Past Family History Mother History Unknown: Yes Family Medical History: Deep Vein Thrombosis (DVT) Father History Unknown: Yes Family Medical History: Congestive Heart Failure (CHF), Diabetes Mellitus Additional Family Medical History / Comment(s): of [place] Medications and Allergies Home Medications Medication Instructions Recorded Confirmed Type ALPRAZolam [Xanax] 0.25 tab PO DAILY PRN 05/31/14 12/04/24 History Albuterol Nebulized [Ventolin 2.5 mg INHALATION RT-Q4H PRN 01/21/17 12/04/24 History Nebulized] Albuterol Sulfate [Proair Hfa] 2 puff INHALATION RT-QID PRN 01/21/17 12/04/24 History Alendronate Sodium [Fosamax] 70 mg PO WEEKLY 01/21/17 12/04/24 History Fluticasone Nasal [place] [Flonase 1 spray EA NOSTRIL BID 01/21/17 12/04/24 History Nasal [place]] Omeprazole [PriLOSEC] 20 mg PO DAILY 01/21/17 12/04/24 History Aspirin [Adult Low Dose Aspirin EC] 81 mg PO DAILY 02/28/23 12/04/24 History guaiFENesin [Mucinex] 1,200 mg PO Q12H PRN 03/02/23 12/04/24 History Cetirizine HCl 10 mg PO DAILY 01/01/24 12/04/24 History Dicyclomine [Bentyl] 10 mg PO DIRECTED 11/26/24 12/04/24 History Fluticasone/Umeclidin/Vilanter 1 puff INHALATION RT-DAILY 11/26/24 12/04/24 History [Trelegy Ellipta 100-62.5-25] Amiodarone [Cordarone] 200 mg PO BID #60 tab 11/29/24 12/04/24 Rx Apixaban [Eliquis] 5 mg PO BID #60 tab 11/29/24 12/04/24 Rx Atorvastatin [Lipitor] 40 mg PO DAILY #0 11/29/24 12/04/24 Rx Dapagliflozin Propanediol [Farxiga] 10 mg PO DAILY #30 tab 11/29/24 12/04/24 Rx Spironolactone [Aldactone] 25 mg PO DAILY #30 tab 11/29/24 12/04/24 Rx Metoprolol Tartrate [Lopressor] 100 mg PO BID #120 tab 11/30/24 12/04/24 Rx Sacubitril/Valsartan [Entresto 24 1 tab PO BID 12/04/24 12/04/24 History mg-26 mg Tablet] Allergies Allergy/AdvReac Type Severity Reaction Status Date / Time guaifenesin [From Robitussin] Allergy Severe Anaphylaxis Verified 12/04/24 19:57 propoxyphene napsylate Allergy Severe Swelling Verified 12/04/24 19:57 [From Darvocet-N] Sulfa (Sulfonamide Allergy Severe Swelling Verified 12/04/24 19:57 Antibiotics) metronidazole [From Flagyl] Allergy Rash/Hives Verified 12/04/24 19:57 Physical Exam Vitals: Vital Signs Temp Pulse Resp BP Pulse Ox 12/04/24 23:47 97.8 F 60 18 119/61 96 12/04/24 19:49 98.2 F 74 16 121/74 94 L 12/04/24 15:45 98 F 65 18 138/77 92 L Intake and Output 12/04/24 12/04/24 12/05/24 14:59 22:59 06:59 Other: Weight 51.256 kg - Constitutional General appearance: average body habitus, no acute distress - EENT Eyes: EOMI, PERRLA, normal appearance ENT: hearing grossly normal, NA/AT - Neck Neck: no lymphadenopathy, normal ROM - Respiratory Respiratory: bilateral: CTA, negative: rhonchi, wheezing - Cardiovascular Rhythm: irregularly irregular - Gastrointestinal General gastrointestinal: normal bowel sounds, soft - Musculoskeletal Musculoskeletal: strength equal bilaterally - Psychiatric Psychiatric: A&O x's 3, appropriate affect, intact judgment & insight Results CBC & Chem 7: 12/04/24 16:57 12/04/24 16:57 Labs: Abnormal Lab Results - Last 24 Hours (Table) 12/04/24 12/04/24 Range/Units 16:57 16:57 Hgb 15.1 H (12.0-15.0) g/dL Hct 46.6 H (37.2-46.3) % Immature Gran # 0.35 H (0.00-0.04) 10*3/uL Lymphocytes # 0.43 L (0.90-5.00) 10*3/uL Eosinophils # 0.00 L (0.04-0.35) 10*3/uL Sodium 136 L (137-145) mmol/L Potassium 5.3 H (3.5-5.1) mmol/L BUN 21 H (7-17) mg/dL Glucose 212 H (74-99) mg/dL ALT 75 H (4-34) U/L Alkaline Phosphatase 140 H (38-126) U/L Total Protein 5.8 L (6.3-8.2) g/dL Chest x-ray: report reviewed, image reviewed Assessment and Plan (1) Hemoptysis Current Visit: Yes Status: Acute Priority: High Code(s): R04.2 - HEMOPTYSIS SNOMED Code(s): 90574326 (2) Afib Current Visit: Yes Status: Chronic Priority: Medium Code(s): I48.91 - UNSPECIFIED ATRIAL FIBRILLATION SNOMED Code(s): 34425094 (3) COPD (chronic obstructive pulmonary disease) Current Visit: Yes Status: Chronic Priority: Medium Code(s): J44.9 - CHRONIC OBSTRUCTIVE PULMONARY DISEASE, UNSPECIFIED SNOMED Code(s): 39494966 (4) HFrEF (heart failure with reduced ejection fraction) Current Visit: Yes Status: Chronic Priority: Medium Code(s): I50.20 - UNSPECIFIED SYSTOLIC (CONGESTIVE) HEART FAILURE SNOMED Code(s): 754089708 Plan: Patient is a 74 y/o F with PMHx of Afib, CHF, and COPD presenting with a hx of hemoptysis for 6 days likely 2/2 her recent medication changes. #Hemoptysis Patient has been taking aspirin per PCP for years and was recently started on eliquis when she was discharged on 11/30. Need to r/o vascular event Plan: -CTA chest -Hold Eliquis -Hold Aspirin #HFrEF Patient had EF of 30% at her last hospital admission. No signs of fluid overload and CXR is negative Plan: -Continue GDMT per cardiology #Afib Patient did not endorse any palpitations, dizziness, or fainting today. Plan: -Continue amniodarone #COPD Patient normally on 2L O2 at home, but has not used it since she was discharged on 11/30 Plan: -Continue to titrate home O2 as needed I have personally reviewed this note, the patient's clinical data, and the resident's assessment/plan. I have discussed the case with the resident, agree with the documented medical decision-making, and confirm that the care provided meets the standard for our service. Time with Patient: Greater than 30
--- NOTE | 2024-12-05 02:09 | P.CNPUL ---
History of Present Illness Consult date: 12/05/24 Requesting physician: Thaddeus Cole Reason for consult: other (Hemoptysis) Chief complaint: Hemoptysis, nosebleed History of present illness: Patient is a 74-year-old female with past medical history significant for former tobacco smoker, COPD, lung nodule, hypertension, hyperlipidemia, abdominal aortic aneurysm. Recently hospitalized earlier this month with new onset atrial fibrillation, CHF exacerbation, and COPD exacerbation. Echocardiogram done during this hospitalization showing a reduced left ventricular ejection fraction of 30%, moderate MR, questionable PFO. She was anticoagulated on Eliquis, and discharged home on 11/30/2024. Patient returns the emergency department yest erday evening with a complaint of hemoptysis. Patient states this actually started during her previous hospitalization. Developed some minimal blood- tinged sputum. Also, nosebleeds when blowing her nose. Yesterday, developed quarter size hemoptysis, described as bright red. This happened 3 times and felt she should come to the emergency department. Workup in the ED including a chest x-ray which not show any acute cardiopulmonary process. Labs fairly unremarkable. Troponin less than 0.012. NT-proBNP 5540. Being evaluated in the emergency department. She is resting comfortably on room air. No coughing or hemoptysis since coming to the emergency department. No further epistaxis. Denies any shortness of breath, chest pain, heart palpitations, or fevers. Denies any melena or hematochezia or hematemesis. Vital signs are stable. Review of Systems Constitutional: Denies chills, Denies fatigue, Denies fever, Denies poor appetite, Denies sweats, Denies weight gain, Denies weight loss Ears, nose, mouth and throat: Reports epistaxis, Reports nasal congestion, Reports post-nasal drip, Reports sore throat, Denies headache, Denies nose pain, Denies sinus pressure Cardiovascular: Denies chest pain, Denies leg edema, Denies lightheadedness, Denies orthopnea, Denies palpitations, Denies paroxysmal nocturnal dyspnea, Denies syncope Respiratory: Reports as per HPI Gastrointestinal: Denies abdominal pain, Denies change in bowel habits, Denies coffee ground emesis, Denies hematemesis, Denies hematochezia, Denies melena, Denies nausea, Denies vomiting Genitourinary: Denies dysuria, Denies hematuria Musculoskeletal: Denies limitation of motion Integumentary: Denies rash, Denies unusual bruising Neurological: Denies head injury, Denies headaches, Denies seizures, Denies syncope Psychiatric: Denies anxiety, Denies depression Past Medical History Past Medical History: Atrial Fibrillation, Heart Failure, COPD, Fibromyalgia, GERD/Reflux, Hypertension, Osteoarthritis (OA) Additional Past Medical History / Comment(s): "Pre-Diabetic." DDD WITH BACK PAIN. HX PANCREATITIS. ABDOMINAL ANEURYSM. HX EPISODE OF IRREGULAR HEARTBEAT. Varicose veins. High blood pressure when nervous, TAKEN OFF BLOOD PRESSURE MEDICATION. History of Any Multi-Drug Resistant Organisms: None Reported Past Surgical History: Back Surgery, Hysterectomy, Orthopedic Surgery Additional Past Surgical History / Comment(s): BILATERAL CARPAL TUNNEL SURGERY. Past Anesthesia/Blood Transfusion Reactions: No Reported Reaction, Motion Sickness Past Psychological History: Anxiety Smoking Status: Former smoker Past Alcohol Use History: None Reported Past Drug Use History: None Reported - Past Family History Mother History Unknown: Yes Family Medical History: Deep Vein Thrombosis (DVT) Father History Unknown: Yes Family Medical History: Congestive Heart Failure (CHF), Diabetes Mellitus Additional Family Medical History / Comment(s): of [place] Medications and Allergies Home Medications Medication Instructions Recorded Confirmed Type ALPRAZolam [Xanax] 0.25 tab PO DAILY PRN 05/31/14 12/04/24 History Albuterol Nebulized [Ventolin 2.5 mg INHALATION RT-Q4H PRN 01/21/17 12/04/24 History Nebulized] Albuterol Sulfate [Proair Hfa] 2 puff INHALATION RT-QID PRN 01/21/17 12/04/24 History Alendronate Sodium [Fosamax] 70 mg PO WEEKLY 01/21/17 12/04/24 History Fluticasone Nasal [place] [Flonase 1 spray EA NOSTRIL BID 01/21/17 12/04/24 History Nasal [place]] Omeprazole [PriLOSEC] 20 mg PO DAILY 01/21/17 12/04/24 History Aspirin [Adult Low Dose Aspirin EC] 81 mg PO DAILY 02/28/23 12/04/24 History guaiFENesin [Mucinex] 1,200 mg PO Q12H PRN 03/02/23 12/04/24 History Cetirizine HCl 10 mg PO DAILY 01/01/24 12/04/24 History Dicyclomine [Bentyl] 10 mg PO DIRECTED 11/26/24 12/04/24 History Fluticasone/Umeclidin/Vilanter 1 puff INHALATION RT-DAILY 11/26/24 12/04/24 History [Trelegy Ellipta 100-62.5-25] Amiodarone [Cordarone] 200 mg PO BID #60 tab 11/29/24 12/04/24 Rx Apixaban [Eliquis] 5 mg PO BID #60 tab 11/29/24 12/04/24 Rx Atorvastatin [Lipitor] 40 mg PO DAILY #0 11/29/24 12/04/24 Rx Dapagliflozin Propanediol [Farxiga] 10 mg PO DAILY #30 tab 11/29/24 12/04/24 Rx Spironolactone [Aldactone] 25 mg PO DAILY #30 tab 11/29/24 12/04/24 Rx Metoprolol Tartrate [Lopressor] 100 mg PO BID #120 tab 11/30/24 12/04/24 Rx Sacubitril/Valsartan [Entresto 24 1 tab PO BID 12/04/24 12/04/24 History mg-26 mg Tablet] Allergies Allergy/AdvReac Type Severity Reaction Status Date / Time guaifenesin [From Robitussin] Allergy Severe Anaphylaxis Verified 12/04/24 19:57 propoxyphene napsylate Allergy Severe Swelling Verified 12/04/24 19:57 [From Darvocet-N] Sulfa (Sulfonamide Allergy Severe Swelling Verified 12/04/24 19:57 Antibiotics) metronidazole [From Flagyl] Allergy Rash/Hives Verified 12/04/24 19:57 Physical Exam Vitals: Vital Signs Temp Pulse Resp BP Pulse Ox 12/04/24 23:47 97.8 F 60 18 119/61 96 12/04/24 19:49 98.2 F 74 16 121/74 94 L 12/04/24 15:45 98 F 65 18 138/77 92 L Intake and Output 12/04/24 12/04/24 12/05/24 14:59 22:59 06:59 Other: Weight 51.256 kg GENERAL EXAM: Alert, 74-year-old female, comfortable in no apparent distress. HEAD: Normocephalic and atraumatic EYES: Normal reaction of pupils, equal size. NOSE: erythemic and bloody turbinates THROAT: No erythema or exudates. NECK: No masses, no JVD. CHEST: No chest wall deformity. LUNGS: Equal air entry with no crackles, wheeze, rhonchi or dullness. On room air. No conversational dyspnea or accessory muscle use.. CVS: S1 and S2 normal with no audible murmur, regular rhythm. No extra heart sounds ABDOMEN: No hepatosplenomegaly, active bowel sounds, no guarding or rigidity. SPINE: No scoliosis or deformity SKIN: No rashes CENTRAL NERVOUS SYSTEM: No focal deficits, tone is normal in all 4 extremities. EXTREMITIES: There is no peripheral edema, clubbing, or cyanosis. Peripheral pulses are intact. Results - Laboratory Findings CBC and BMP: 12/04/24 16:57 12/04/24 16:57 PT/INR, D-dimer PT 11.1 sec (10.0-12.5) 12/04/24 16:57 INR 1.0 (<1.2) 12/04/24 16:57 Abnormal lab findings: Abnormal Labs 12/04/24 12/04/24 16:57 16:57 Hgb 15.1 H Hct 46.6 H Immature Gran # 0.35 H Lymphocytes # 0.43 L Eosinophils # 0.00 L Sodium 136 L Potassium 5.3 H BUN 21 H Glucose 212 H ALT 75 H Alkaline Phosphatase 140 H Total Protein 5.8 L - Diagnostic Findings Chest x-ray: image reviewed Assessment and Plan Assessment: Small hemoptysis, improved Epistaxis, improved Heart failure with reduced ejection fraction of 30 to 35% Paroxysmal atrial fibrillation, previously anticoagulated Eliquis Severe chronic obstructive pulmonary disease, with FEV1 30% at baseline, currently maintained on Trelegy minutes inhaler Sputum culture from 11/29/2024 positive for Staph aureus ssp aureus and E. coli History of right middle lobe pulmonary nodule, measuring 1.3 cm, being followed on outpatient basis Hypertension History of hyperlipidemia History of abdominal aortic aneurysm, with previous endovascular repair Former tobacco smoker, quit over 10 years ago Plan: On room air and nondistressed If epistaxis continues, consult ENT No further hemoptysis per patient while being in the emergency department. There is a chest CT angiogram that was previously ordered, pending Continue to hold Eliquis for now Remaining cardiac medications have been resumed including amiodarone 200 mg twice daily, metoprolol 100 mg twice daily, Entresto, Farxiga, Aldactone COPD is inactive and continue maintenance inhalers We will continue to follow I have personally seen and examined the patient, performed the documentation and the assessment and plan as written. Number of minutes spent on the visit:20 Time with Patient: Greater than 30
--- NOTE | 2024-12-05 07:04 | CT ---
EXAMINATION TYPE: CT angio chest CT DLP: 200 mGycm, Automated exposure control for dose reduction was used. DATE OF EXAM: 12/05/2024 1:07 AM COMPARISON: Chest radiograph 12/04/2024, CT chest 03/25/2024, CTA chest 01/01/2024 CLINICAL INDICATION:Female, 74 years old with history of hemoptysis on eliquis. evaluate for vascular etiol; hemoptysis on eliquis. evaluate for vascular etiol TECHNIQUE/CONTRAST: CTA scan of the thorax is performed with IV Contrast, patient injected with 100 mL of Isovue 370, pul monary embolism protocol. MIP images are created and reviewed. FINDINGS: Pulmonary Artery: There is no evidence for a filling defect within the pulmonary vasculature to sugge st acute pulmonary embolism. The pulmonary artery is mildly dilated measuring up to 3.2 cm in diamet er. This can be seen with pulmonary arterial hypertension. Reflux of contrast into the IVC and hepati c veins. Lungs/Pleura: Minimal biapical pleural parenchymal scarring. Moderate centrilobular emphysematous izabela nges. No pleural effusion or pneumothorax. Subsegmental linear atelectasis and/or consolidation withi n the lingula and bilateral lower lobes. Stable lobulated solid pulmonary nodule within the medial as pect of the right upper lobe (series 406, image 83). No definitive new or enlarging pulmonary nodules . Airway: Large airways are patent. Heart: Cardiomegaly is demonstrated.Trace pericardial. No significant coronary artery calcifications. Vasculature: No evidence of thoracic aortic aneurysm. Mild atherosclerotic calcification of the aorta and its branches. 4 vessel aortic arch. Mediastinum: No gross evidence of adenopathy. Musculoskeletal: New anterior wedge compression deformity involving the superior endplate of the T12 vertebral body with approximately 5% height loss in 1 mm retropulsion. There is sclerosis of the supe rior endplate. No paraspinal edema. Soft Tissues: Unremarkable. Lower neck: No significant findings. Upper Abdomen: Multiple calcifications identified within the pancreas consistent with chronic pancrea titis changes. Partial visualization of abdominal aortic stent graft. Stable right adrenal gland sandra kavita measuring up to 2.5 cm. IMPRESSION: 1. No evidence of pulmonary embolism. 2. Bilateral lower lobe and lingular linear atelectasis and/or consolidation. 3. Stable medial right upper lobe 1.3 cm soft tissue pulmonary nodule. No new or enlarging pulmonary nodules. Suggest to be benign due to stability for 2 years. 4. Moderate emphysematous changes. 5. New anterior wedge compression deformity of the T12 vertebral body from prior CT. No paraspinal ed scott. This is favored to be subacute to chronic in appearance. Correlate with point tenderness. [facility], , 12/05/2024 7:02 AM
[2024-12-05 08:47] LABS: Basophils # (A) 0.04 10*3/uL (0.00-0.10); Basophils % (A) 0.4 %; Eosinophils # (A) 0.05 10*3/uL (0.04-0.35); Eosinophils % (A) 0.5 %; HCT 46.6 % (37.2-46.3); HGB 15.3 g/dL (12.0-15.0); Lymphocytes # (A) 1.60 10*3/uL (0.90-5.00); Lymphocytes % (A) 16.8 %; MCH 31.0 pg (27.0-32.0); MCHC 32.8 g/dL (32.0-37.0); MCV 94.5 fL (80.0-97.0); Monocytes # (A) 1.28 10*3/uL (0.20-1.00); Monocytes % (A) 13.4 %; Neutrophils # (A) 6.29 10*3/uL (1.80-7.70); Neutrophils % (A) 66.2 %; Platelet Count 362 10*3/uL (140-440); RBC 4.93 10*6/uL (4.10-5.20); RDW 13.1 % (11.5-14.5); WBC 9.52 10*3/uL (4.50-10.00)
[2024-12-05] MEDS ORDERED: ASPIRIN 81 MG PO SCH (09:00)
[2024-12-05] MEDS: ATORVASTATIN 40 MG TAB PO SCH (09:14)
[2024-12-05] MEDS: DAPAGLIFLOZIN PROPANEDIOL 10 MG TABLET PO SCH (09:14)
[2024-12-05] MEDS: PANTOPRAZOLE 40 MG TABLET PO SCH (09:15)
[2024-12-05] MEDS: SPIRONOLACTONE 25 MG TAB PO SCH (09:15)
[2024-12-05] MEDS: predniSONE 20 MG TAB PO SCH (09:15)
[2024-12-05] MEDS: SACUBITRIL/VALSARTAN 24 MG-26 MG TABLET PO SCH (09:19)
[2024-12-05 09:26] LABS: African American GFR (CKD) 60 (>60 ml/min/1.73 sqM); Anion Gap 8 mmol/L; Blood Urea Nitrogen 17 mg/dL (7-17); Calcium 9.4 mg/dL (8.4-10.2); Carbon Dioxide 28 mmol/L (22-30); Chloride 103 mmol/L (98-107); Glucose 118 mg/dL (74-99); Magnesium 2.6 mg/dL (1.6-2.3); Non-African American GFR(CKD) 52 (>60 ml/min/1.73 sqM); Potassium 4.3 mmol/L (3.5-5.1); Sodium 139 mmol/L (137-145)
[2024-12-05] MEDS: TIOTROPIUM 2.5 MCG INHALER INHALATION SCH (11:11)
[2024-12-05] MEDS: SYMBICORT 160-4.5 MCG INHALER INHALATION SCH (11:11)
--- NOTE | 2024-12-05 12:17 | P.CRDCN ---
History of Present Illness History of present illness: HISTORY OF PRESENT ILLNESS: This is a 74-year-old female with a past medical history significant for hyperlipidemia, PVCs, nonsustained ventricular tachycardia, atrial tachycardia, atrial fibrillation, AAA, pulmonary nodules and COPD. Patient follows in the office with Dr. Begum. We have been asked to see the patient in consultation for hemoptysis. Patient examined at the bedside. Patient presented to the hospital due to a few episodes of coughing up blood at home. She was recently started on Eliquis for new diagnosis of atrial fibrillation. Patient's Eliquis was placed on hold. She denies any further episodes of hemoptysis. She denies any chest pain or shortness of breath. Heart rate is in the 50s this morning. DIAGNOSTICS: - Chest xray negative for acute process -Chest CTA: Negative for pulmonary embolism. Bilateral lower lobe and lingular linear atelectasis and/or consolidation. Stable medial right upper lobe pulmonary nodule. - Laboratory data: WBC 9.52. Hemoglobin 15.3. Platelet count 362. Sodium 139. Potassium 4.3. BUN 17. Creatinine 1.07. Troponin negative x 1. proBNP 5540. - Current home cardiac medications include Aldactone 25 mg daily, Entresto 24-26 mg twice a day, Toprol tartrate 100 mg twice a day, Farxiga 10 mg daily, Lipitor 40 mg daily, aspirin 81 mg daily, Eliquis 5 mg twice a day, amiodarone 200 mg twice a day. - Most recent echocardiogram obtained in November 2024 revealing ejection fraction 30 to 35%, questionable PFO, moderate mitral sclerosis with no significant gradient, small pericardial effusion - Cardiac catheterization history: Patient denies REVIEW OF SYSTEMS: At the time of my exam: CONSTITUTIONAL: Denies fever or chills. HEENT: Denies blurred vision, vision changes, or eye pain. Denies hemoptysis CARDIOVASCULAR: Denies chest pain. Denies orthopnea. Denies PND. Denies palpitations RESPIRATORY: Denies shortness of breath. GASTROINTESTINAL: Denies abdominal pain. Denies nausea or vomiting. HEMATOLOGIC: Denies bleeding disorders. GENITOURINARY: Denies any blood in urine. SKIN: Denies pruitis. Denies rash. PHYSICAL EXAM: VITAL SIGNS: Reviewed. GENERAL: Well-developed in no acute distress. HEENT: Head is normocephalic. Pupils are equal, round. Sclerae anicteric. Mucous membranes of the mouth are moist. Neck supple. No JVD or thyromegaly LUNGS: Respirations even and unlabored. Lungs essentially clear to auscultation bilaterally. HEART: Regular rate and rhythm. S1 and S2 heard. ABDOMEN: Soft. Nondistended. Nontender. EXTREMITIES: Normal range of motion. No clubbing or cyanosis. Peripheral pulses intact. No lower extremity edema NEUROLOGIC: Awake and alert. Oriented x 3. ASSESSMENT: Hemoptysis, resolved Paroxysmal atrial fibrillation, on Eliquis outpatient History of COPD History of pulmonary nodules History of atrial tachycardia History of PVCs History of nonsustained ventricular tachycardia Hyperlipidemia History of AAA with previous endovascular repair Former nicotine dependence PLAN: No need to repeat echocardiogram as this was performed in November 2024 Decrease metoprolol to 50 mg twice a day Resume Eliquis tomorrow morning per pulmonary recommendations Continue telemetry monitoring Further recommendations pending patient course Nurse practitioner note has been reviewed by physician. Signing provider agrees with the documented findings, assessment, and plan of care documented by [employer] as a scribe. Past Medical History Past Medical History: Atrial Fibrillation, Heart Failure, COPD, Fibromyalgia, GERD/Reflux, Hypertension, Osteoarthritis (OA) Additional Past Medical History / Comment(s): "Pre-Diabetic." DDD WITH BACK PAIN. HX PANCREATITIS. ABDOMINAL ANEURYSM. HX EPISODE OF IRREGULAR HEARTBEAT. Varicose veins. High blood pressure when nervous, TAKEN OFF BLOOD PRESSURE MEDICATION. History of Any Multi-Drug Resistant Organisms: None Reported Past Surgical History: Back Surgery, Hysterectomy, Orthopedic Surgery Additional Past Surgical History / Comment(s): BILATERAL CARPAL TUNNEL SURGERY. Past Anesthesia/Blood Transfusion Reactions: No Reported Reaction, Motion Sickness Past Psychological History: Anxiety Smoking Status: Former smoker Past Alcohol Use History: None Reported Past Drug Use History: None Reported - Past Family History Mother History Unknown: Yes Family Medical History: Deep Vein Thrombosis (DVT) Father History Unknown: Yes Family Medical History: Congestive Heart Failure (CHF), Diabetes Mellitus Additional Family Medical History / Comment(s): of [place] Medications and Allergies Home Medications Medication Instructions Recorded Confirmed Type ALPRAZolam [Xanax] 0.25 tab PO DAILY PRN 05/31/14 12/04/24 History Albuterol Nebulized [Ventolin 2.5 mg INHALATION RT-Q4H PRN 01/21/17 12/04/24 History Nebulized] Albuterol Sulfate [Proair Hfa] 2 puff INHALATION RT-QID PRN 01/21/17 12/04/24 History Alendronate Sodium [Fosamax] 70 mg PO WEEKLY 01/21/17 12/04/24 History Fluticasone Nasal [place] [Flonase 1 spray EA NOSTRIL BID 01/21/17 12/04/24 History Nasal [place]] Omeprazole [PriLOSEC] 20 mg PO DAILY 01/21/17 12/04/24 History Aspirin [Adult Low Dose Aspirin EC] 81 mg PO DAILY 02/28/23 12/04/24 History guaiFENesin [Mucinex] 1,200 mg PO Q12H PRN 03/02/23 12/04/24 History Cetirizine HCl 10 mg PO DAILY 01/01/24 12/04/24 History Dicyclomine [Bentyl] 10 mg PO DIRECTED 11/26/24 12/04/24 History Fluticasone/Umeclidin/Vilanter 1 puff INHALATION RT-DAILY 11/26/24 12/04/24 History [Trelegy Ellipta 100-62.5-25] Amiodarone [Cordarone] 200 mg PO BID #60 tab 11/29/24 12/04/24 Rx Apixaban [Eliquis] 5 mg PO BID #60 tab 11/29/24 12/04/24 Rx Atorvastatin [Lipitor] 40 mg PO DAILY #0 11/29/24 12/04/24 Rx Dapagliflozin Propanediol [Farxiga] 10 mg PO DAILY #30 tab 11/29/24 12/04/24 Rx Spironolactone [Aldactone] 25 mg PO DAILY #30 tab 11/29/24 12/04/24 Rx Metoprolol Tartrate [Lopressor] 100 mg PO BID #120 tab 11/30/24 12/04/24 Rx Sacubitril/Valsartan [Entresto 24 1 tab PO BID 12/04/24 12/04/24 History mg-26 mg Tablet] Allergies Allergy/AdvReac Type Severity Reaction Status Date / Time guaifenesin [From Robitussin] Allergy Severe Anaphylaxis Verified 12/04/24 19:57 propoxyphene napsylate Allergy Severe Swelling Verified 12/04/24 19:57 [From Darvocet-N] Sulfa (Sulfonamide Allergy Severe Swelling Verified 12/04/24 19:57 Antibiotics) metronidazole [From Flagyl] Allergy Rash/Hives Verified 12/04/24 19:57 Physical Exam Vitals: Vital Signs Temp Pulse Pulse Resp BP BP BP 12/05/24 08:00 55 L 12/05/24 07:00 97.7 F 55 L 15 120/74 12/05/24 03:00 98.2 F 73 16 133/66 12/05/24 02:43 69 18 109/63 12/04/24 23:47 97.8 F 60 18 119/61 12/04/24 19:49 98.2 F 74 16 121/74 12/04/24 15:45 98 F 65 18 138/77 Pulse Ox 12/05/24 08:00 12/05/24 07:00 95 12/05/24 03:00 96 12/05/24 02:43 97 12/04/24 23:47 96 12/04/24 19:49 94 L 12/04/24 15:45 92 L Intake and Output 12/04/24 12/05/24 12/05/24 22:59 06:59 14:59 Other: Voiding Method Toilet Toilet # Voids 1 Weight 51.256 kg Results 12/05/24 08:26 12/05/24 08:26 Cardiac Enzymes 12/04/24 12/04/24 Range/Units 16:57 16:57 AST 26 (14-36) U/L Troponin I <0.012 (0.000-0.034) ng/mL Coagulation 12/04/24 Range/Units 16:57 PT 11.1 (10.0-12.5) sec APTT 22.5 (22.0-30.0) sec CBC 12/04/24 12/05/24 Range/Units 16:57 08:26 WBC 8.48 9.52 (4.50-10.00) 10*3/uL RBC 4.85 4.93 (4.10-5.20) 10*6/uL Hgb 15.1 H 15.3 H (12.0-15.0) g/dL Hct 46.6 H 46.6 H (37.2-46.3) % Plt Count 333 362 (140-440) 10*3/uL Comprehensive Metabolic Panel 12/04/24 12/05/24 Range/Units 16:57 08:26 Sodium 136 L 139 (137-145) mmol/L Potassium 5.3 H 4.3 (3.5-5.1) mmol/L Chloride 101 103 (98-107) mmol/L Carbon Dioxide 27 28 (22-30) mmol/L BUN 21 H 17 (7-17) mg/dL Creatinine 1.04 1.07 H (0.52-1.04) mg/dL Glucose 212 H 118 H (74-99) mg/dL Calcium 9.0 9.4 (8.4-10.2) mg/dL AST 26 (14-36) U/L ALT 75 H (4-34) U/L Alkaline Phosphatase 140 H (38-126) U/L Total Protein 5.8 L (6.3-8.2) g/dL Albumin 3.6 (3.5-5.0) g/dL Current Medications Generic Name Dose Route Start Last Admin Trade Name Freq PRN Reason Stop Dose Admin Acetaminophen 650 mg 12/04/24 19:27 Acetaminophen Tab 325 Mg Tab PO Q6HR PRN Mild Pain or Fever > 100.5 Albuterol Sulfate 2.5 mg 12/04/24 19:32 Albuterol Nebulized 2.5 Mg/3 Ml INHALATION RT-Q4H PRN Shortness Of Breath Alprazolam 0.25 mg 12/04/24 19:32 Alprazolam 0.25 Mg Tab PO DAILY PRN Anxiety Amiodarone HCl 200 mg 12/04/24 21:00 12/05/24 09:14 Amiodarone 200 Mg Tab PO 200 mg BID JAG Administration Atorvastatin Calcium 40 mg 12/05/24 09:00 12/05/24 09:14 Atorvastatin 40 Mg Tab PO 40 mg DAILY JAG Administration Budesonide/Formoterol Fumarate 2 puff 12/05/24 08:00 Symbicort 160-4.5 Mcg Inhaler INHALATION RT-BID JAG Dapagliflozin 10 mg 12/05/24 09:00 12/05/24 09:14 Dapagliflozin Propanediol 10 Mg Tablet PO 10 mg DAILY JAG Administration Metoprolol Tartrate 100 mg 12/04/24 21:00 12/05/24 09:20 Metoprolol Tartrate 50 Mg Tab PO Not Given BID JAG Morphine Sulfate 4 mg 12/04/24 19:27 Morphine Sulfate 4 Mg/Ml Syringe IV Q4HR PRN Severe Pain (Scale 7 to 10) Naloxone HCl 0.2 mg 12/04/24 19:27 Naloxone 0.4 Mg/Ml 1 Ml Vial IV Q2M PRN Opioid Reversal Non-Formulary Medication 70 mg 12/11/24 09:00 Alendronate Sodium [Fosamax] PO WEEKLY JAG Ondansetron HCl 4 mg 12/04/24 19:27 Ondansetron 4 Mg/2 Ml Vial IVP Q8HR PRN Nausea And Vomiting Pantoprazole Sodium 40 mg 12/05/24 09:00 12/05/24 09:15 Pantoprazole 40 Mg Tablet PO 40 mg DAILY JAG Administration Prednisone 40 mg 12/05/24 09:00 12/05/24 09:15 Prednisone 20 Mg Tab PO 40 mg DAILY JAG Administration Sacubitril/Valsartan 1 each 12/05/24 09:00 12/05/24 09:19 Sacubitril/Valsartan 24 Mg-26 Mg Tablet PO 1 each BID JAG Administration Spironolactone 25 mg 12/05/24 09:00 12/05/24 09:15 Spironolactone 25 Mg Tab PO 25 mg DAILY JAG Administration Tiotropium [place] 2 puff 12/05/24 08:00 Tiotropium 2.5 Mcg Inhaler INHALATION RT-DAILY JAG Intake and Output 12/04/24 12/05/24 12/05/24 22:59 06:59 14:59 Other: Voiding Method Toilet Toilet # Voids 1 Weight 51.256 kg 12/05/24 08:26 12/05/24 08:26
[2024-12-05 14:20] VITALS: RESP 16
[2024-12-05] MEDS: METOPROLOL TARTRATE 50 MG TAB PO SCH (21:56)
[2024-12-06] MEDS: ONDANSETRON 4 MG/2 ML VIAL IVP PRN (05:09)
[2024-12-06 06:45] LABS: Basophils # (A) 0.03 10*3/uL (0.00-0.10); Basophils % (A) 0.3 %; Eosinophils # (A) 0.04 10*3/uL (0.04-0.35); Eosinophils % (A) 0.4 %; HCT 42.5 % (37.2-46.3); HGB 14.0 g/dL (12.0-15.0); Lymphocytes # (A) 1.21 10*3/uL (0.90-5.00); Lymphocytes % (A) 11.9 %; MCH 31.8 pg (27.0-32.0); MCHC 32.9 g/dL (32.0-37.0); MCV 96.6 fL (80.0-97.0); Monocytes # (A) 1.29 10*3/uL (0.20-1.00); Monocytes % (A) 12.7 %; Neutrophils # (A) 7.32 10*3/uL (1.80-7.70); Neutrophils % (A) 71.8 %; Platelet Count 331 10*3/uL (140-440); RBC 4.40 10*6/uL (4.10-5.20); RDW 13.3 % (11.5-14.5); WBC 10.19 10*3/uL (4.50-10.00)
[2024-12-06 07:16] LABS: African American GFR (CKD) 44 (>60 ml/min/1.73 sqM); Anion Gap 8 mmol/L; Blood Urea Nitrogen 25 mg/dL (7-17); Calcium 9.0 mg/dL (8.4-10.2); Carbon Dioxide 24 mmol/L (22-30); Chloride 106 mmol/L (98-107); Glucose 174 mg/dL (74-99); Non-African American GFR(CKD) 38 (>60 ml/min/1.73 sqM); Potassium 4.2 mmol/L (3.5-5.1); Sodium 138 mmol/L (137-145)
[2024-12-06 07:51] VITALS: BP 134/77; PULSE 59; TEMP 97.7
[2024-12-06] MEDS: APIXABAN 5 MG TAB PO SCH (08:58)
--- NOTE | 2024-12-06 12:10 | P.PN ---
Subjective HISTORY OF PRESENT ILLNESS: This is a 74-year-old female with a past medical history significant for hyperlipidemia, PVCs, nonsustained ventricular tachycardia, atrial tachycardia, atrial fibrillation, AAA, pulmonary nodules and COPD. Patient follows in the office with Dr. Begum. We have been asked to see the patient in consultation for hemoptysis. Patient examined at the bedside. Patient presented to the hospital due to a few episodes of coughing up blood at home. She was recently started on Eliquis for new diagnosis of atrial fibrillation. Patient's Eliquis was placed on hold. She denies any further episodes of hemoptysis. She denies any chest pain or shortness of breath. Heart rate is in the 50s this morning. DIAGNOSTICS: - Chest xray negative for acute process -Chest CTA: Negative for pulmonary embolism. Bilateral lower lobe and lingular linear atelectasis and/or consolidation. Stable medial right upper lobe pulmonary nodule. - Laboratory data: WBC 9.52. Hemoglobin 15.3. Platelet count 362. Sodium 139. Potassium 4.3. BUN 17. Creatinine 1.07. Troponin negative x 1. proBNP 5540. - Current home cardiac medications include Aldactone 25 mg daily, Entresto 24-26 mg twice a day, Toprol tartrate 100 mg twice a day, Farxiga 10 mg daily, Lipitor 40 mg daily, aspirin 81 mg daily, Eliquis 5 mg twice a day, amiodarone 200 mg twice a day. - Most recent echocardiogram obtained in November 2024 revealing ejection fraction 30 to 35%, questionable PFO, moderate mitral sclerosis with no significant gradient, small pericardial effusion - Cardiac catheterization history: Patient denies 12/06/2024 Patient examined this morning at the bedside. Patient denies CP or SOB. No further episodes of hemoptysis. Vital signs are stable. PHYSICAL EXAM: VITAL SIGNS: Reviewed. GENERAL: Well-developed in no acute distress. HEENT: Head is normocephalic. Pupils are equal, round. Sclerae anicteric. Mucous membranes of the mouth are moist. Neck supple. No JVD or thyromegaly LUNGS: Respirations even and unlabored. Lungs essentially clear to auscultation bilaterally. HEART: Regular rate and rhythm. S1 and S2 heard. ABDOMEN: Soft. Nondistended. Nontender. EXTREMITIES: Normal range of motion. No clubbing or cyanosis. Peripheral p ulses intact. No lower extremity edema NEUROLOGIC: Awake and alert. Oriented x 3. ASSESSMENT: Hemoptysis, resolved Paroxysmal atrial fibrillation, on Eliquis outpatient History of COPD History of pulmonary nodules History of atrial tachycardia History of PVCs History of nonsustained ventricular tachycardia Hyperlipidemia History of AAA with previous endovascular repair Former nicotine dependence PLAN: No need to repeat echocardiogram as this was performed in November 2024 Resume Eliquis Continue telemetry monitoring Stable for discharge today from a cardiac standpoint Further recommendations pending patient course Nurse practitioner note has been reviewed by physician. Signing provider agrees with the documented findings, assessment, and plan of care documented by GSE [employer]CH[employer]IC as a scribe. Objective - Vital Signs Vital signs: Vital Signs Temp 97.7 F 12/06/24 07:21 Pulse 59 L 12/06/24 07:21 Resp 16 12/06/24 07:21 BP 134/77 12/06/24 07:21 Pulse Ox 95 12/06/24 07:21 FiO2 Intake & Output 12/05/24 12/06/24 12/06/24 18:59 06:59 18:59 Intake Total 360 Balance 360 Intake: Oral 360 Other: Voiding Method Toilet Toilet # Voids 3 2 - Labs CBC & Chem 7: 12/06/24 06:18 12/06/24 06:18 Labs: Abnormal Lab Results - Last 24 Hours (Table) 12/06/24 12/06/24 Range/Units 06:18 06:18 WBC 10.19 H (4.50-10.00) 10*3/uL MPV 9.2 L (9.5-12.2) fL Immature Gran # 0.30 H (0.00-0.04) 10*3/uL Monocytes # 1.29 H (0.20-1.00) 10*3/uL BUN 25 H (7-17) mg/dL Creatinine 1.38 H (0.52-1.04) mg/dL Glucose 174 H (74-99) mg/dL
--- NOTE | 2024-12-06 13:13 | P.DS ---
Providers Date of admission: 12/04/24 19:33 Expected date of discharge: 12/06/24 Attending physician: Angelito Tony Consults: 12/04/24 19:27 Consult Physician Stat Consulting Provider: Raphael Belcher Consult Reason/Comments: Hemoptysis, Eliquis use Do you want consulting provider notified?: Yes, Notify in am Consult Physician Stat Consulting Provider: Robert Begum Consult Reason/Comments: Hemoptysis, Eliquis for A-fib Do you want consulting provider notified?: Yes, Notify in am Primary care physician: Michael Tovar MD Hospital Course: Discharge Diagnosis: #Hemoptysis #Epistaxis #Mild CASSIA #HFrEF, not in exacerbation #Afib #COPD, not in exacerbation #Hyperglycemia while admitted #Subacute to chronic T12 vertebral body compression deformity #Pulmonary nodule, stable Hospital Course: 74 y/o F with PMHx of COPD, Anxiety, HLD, GERD, and Afib presents with hemoptysis for 6 days. Patient was recently admitted at [facility] from 11/26 - 11/30 for acute on chronic respiratory failure 2/2 COPD with CHF and new onset Afib with RVR. Patient indicates that she was coughing up brownish sputum at the hospital last week and was told to come to the ER if the sputum became bright red. She indicated that she coughed up a quarter sized amount of bright red sputum 2x today along with 1 episode of a nosebleed. Patient shares that she is feeling the best she has all month. She denies any fevers/chills, SOB, heart palp, chest pain, N/V, swelling, wheezing. The patient was admitted for further evaluation. Labs were mostly unremarkable other than elevated blood sugars and a slight CASSIA on 12/06/2024 (patients Creatinine on admission was 1.04 on admission and 1.38 on day of discharge). CTA was negative for acute PE but demonstrated bilateral upper lobe consolidation, a stable right medial 1.3 cm pulmonary nodule, and and a anterior wedge compression deformity of T12 vertebral body most likely subacute to chronic. EKG was negative for acute TX. The patient had no more episodes of hemoptysis since admission. Pulmonology and cardiology saw the patient while she was admitted and her eliquis was held during admission but continued on discharge. Patient was discharged with recommendation for repeat BMP in 3 days to monitor kidney function and to follow up with her PCP within 1 week. She was told to return to the hospital if she has new onset worsened hymoptysis. Patient seen and examined at bedside. Vital signs reviewed and stable. Physical examination: Vital signs reviewed General: non toxic, no distress, appears at stated age, normal weight Derm: no unusual rashes/lesions, warm Head: atraumatic, normocephalic, symmetric Eyes: EOMI, anicteric sclera, pupils equal round reactive to light ENT: Nose and ears atraumatic. Mild pharyngeal erythema. Neck: No cervical lymphadenopathy, trachea midline, supple Mouth: no lip lesion, mucus membranes moist Cardiovascular: S1S2 reg, no murmur, positive dorsalis pedis pulse bilateral, no edema Lungs: CTA bilateral, no rhonchi, no rales, no accessory muscle use Abdominal: soft, nontender to palpation, no guarding Ext: muscle strength 5 out of 5 in all 4 extremities grossly, no gross muscle atrophy Neuro: CN II-XI grossly intact, no gross focal neuro deficits Psych: Alert, oriented to person, place, and time A total of greater than 30 minutes of time were spent preparing this complex discharge summary. Patient was discharged on 12/05/2024 at 1139. James Abebe MD PGY-1 TY I have seen and evaluated the patient today. Discussed with the resident and agree with the residents finding and plan as documented in the resident's note. Changes highlighted in blue font. Patient Condition at Discharge: Good Plan - Discharge Summary Discharge Rx Participant: No New Discharge Prescriptions: Continue ALPRAZolam [Xanax] 0.25 tab PO DAILY PRN PRN Reason: Anxiety Albuterol Nebulized [Ventolin Nebulized] 2.5 mg INHALATION RT-Q4H PRN PRN Reason: Shortness Of Breath Albuterol Sulfate [Proair Hfa] 2 puff INHALATION RT-QID PRN PRN Reason: Shortness Of Breath Omeprazole [PriLOSEC] 20 mg PO DAILY Fluticasone Nasal Bryant [Flonase Nasal Bryant] 1 spray EA NOSTRIL BID Alendronate Sodium [Fosamax] 70 mg PO WEEKLY Cetirizine HCl 10 mg PO DAILY Fluticasone/Umeclidin/Vilanter [Trelegy Ellipta 100-62.5-25] 1 puff INHALATION RT-DAILY Spironolactone [Aldactone] 25 mg PO DAILY #30 tab Amiodarone [Cordarone] 200 mg PO BID #60 tab Apixaban [Eliquis] 5 mg PO BID #60 tab Dapagliflozin Propanediol [Farxiga] 10 mg PO DAILY #30 tab Metoprolol Tartrate [Lopressor] 100 mg PO BID #120 tab Sacubitril/Valsartan [Entresto 24 mg-26 mg Tablet] 1 tab PO BID Aspirin [Adult Low Dose Aspirin EC] 81 mg PO DAILY guaiFENesin [Mucinex] 1,200 mg PO Q12H PRN PRN Reason: Congestion Dicyclomine [Bentyl] 10 mg PO DIRECTED Atorvastatin [Lipitor] 40 mg PO DAILY #120 tab Discharge Medication List ALPRAZolam [Xanax] 0.25 tab PO DAILY PRN 05/31/14 [History] Albuterol Nebulized [Ventolin Nebulized] 2.5 mg INHALATION RT-Q4H PRN 01/21/17 [History] Albuterol Sulfate [Proair Hfa] 2 puff INHALATION RT-QID PRN 01/21/17 [History] Alendronate Sodium [Fosamax] 70 mg PO WEEKLY 01/21/17 [History] Fluticasone Nasal Bryant [Flonase Nasal Bryant] 1 spray EA NOSTRIL BID 01/21/17 [History] Omeprazole [PriLOSEC] 20 mg PO DAILY 01/21/17 [History] Aspirin [Adult Low Dose Aspirin EC] 81 mg PO DAILY 02/28/23 [History] guaiFENesin [Mucinex] 1,200 mg PO Q12H PRN 03/02/23 [History] Cetirizine HCl 10 mg PO DAILY 01/01/24 [History] Dicyclomine [Bentyl] 10 mg PO DIRECTED 11/26/24 [History] Fluticasone/Umeclidin/Vilanter [Trelegy Ellipta 100-62.5-25] 1 puff INHALATION RT-DAILY 11/26/24 [History] Amiodarone [Cordarone] 200 mg PO BID #60 tab 11/29/24 [Rx] Apixaban [Eliquis] 5 mg PO BID #60 tab 11/29/24 [Rx] Dapagliflozin Propanediol [Farxiga] 10 mg PO DAILY #30 tab 11/29/24 [Rx] Spironolactone [Aldactone] 25 mg PO DAILY #30 tab 11/29/24 [Rx] Metoprolol Tartrate [Lopressor] 100 mg PO BID #120 tab 11/30/24 [Rx] Sacubitril/Valsartan [Entresto 24 mg-26 mg Tablet] 1 tab PO BID 12/04/24 [History] Atorvastatin [Lipitor] 40 mg PO DAILY #120 tab 12/06/24 [Rx] Follow up Appointment(s)/Referral(s): Michael Tovar MD [Primary Care Provider] - 1-2 days Ambulatory/Diagnostic Orders: Basic Metabolic Panel [LAB.AMB] Time Frame: 3 Days, Location: None Selected Basic Metabolic Panel [LAB.AMB] Time Frame: 3 Days, Location: None Selected Activity/Diet/Wound Care/Special Instructions: Patient to have repeat labs 3 days after discharge. Follow-up with PCP within 1 week. Discharge Disposition: HOME SELF-CARE
--- NOTE | 2024-12-06 13:57 | P.PN ---
Subjective Progress Note Date: 12/06/24 Patient is a 74-year-old female with past medical history significant for former tobacco smoker, COPD, lung nodule, hypertension, hyperlipidemia, abdominal aortic aneurysm. Recently hospitalized earlier this month with new onset atrial fibrillation, CHF exacerbation, and COPD exacerbation. Echocardiogram done during this hospitalization showing a reduced left ventricular ejection fraction of 30%, moderate MR, questionable PFO. She was anticoagulated on Eliquis, and discharged home on 11/30/2024. Patient returns the emergency department yesterday evening with a complaint of hemoptysis. Patient states this actually started during her previous hospitalization. Developed some minimal blood-tinged sputum. Also, nosebleeds when blowing her nose. Yesterday, developed quarter size hemoptysis, described as bright red. This happened 3 times and felt she should come to the emergency department. Workup in the ED including a chest x-ray which not show any acute cardiopulmonary process. Labs fairly unremarkable. Troponin less than 0.012. NT-proBNP 5540. Being evaluated in the emergency department. She is resting comfortably on room air. No coughing or hemoptysis since coming to the emergency department. No further epistaxis. Denies any shortness of breath, chest pain, heart palpitations, or fevers. Denies any melena or hematochezia or hematemesis. Vital signs are stable. The patient is seen today December 06, 2024 in follow-up on the regular medical floor. She is currently sitting up in bed. Awake and alert in no acute distress. Denies any further coughing up blood. No epistaxis. No other bleeding. She is maintaining good O2 saturations in the mid 90s on room air oxygen. She is afebrile. Hemodynamically stable. White count 10.1. Hemoglobin 14.0. Platelets 331. Sodium 138. Potassium 4.2. Bicarb 24. BUN 25. Creatinine 1.38. Glucose 174. She remains on albuterol, Symbicort, Spiriva. Eliquis will be resumed. Objective - Vital Signs Vital signs: Vital Signs Temp 97.7 F 12/06/24 07:21 Pulse 59 L 12/06/24 07:21 Resp 16 12/06/24 07:21 BP 134/77 12/06/24 07:21 Pulse Ox 95 12/06/24 07:21 FiO2 Intake & Output 12/05/24 12/06/24 12/06/24 18:59 06:59 18:59 Intake Total 360 Balance 360 Intake: Oral 360 Other: Voiding Method Toilet Toilet Toilet # Voids 3 2 - Exam GENERAL EXAM: Alert, active, pleasant 74-year-old female, on room air oxygen, comfortable in no apparent distress. HEAD: Normocephalic. EYES: Normal reaction of pupils, equal size. NOSE: Clear with pink turbinates. THROAT: No erythema or exudates. NECK: No masses, no JVD. CHEST: No chest wall deformity. LUNGS: Equal air entry with no crackles, wheeze, rhonchi or dullness. CVS: S1 and S2 normal with no audible murmur, regular rhythm. ABDOMEN: No hepatosplenomegaly, normal bowel sounds, no guarding or rigidity. SPINE: No scoliosis or deformity SKIN: No rashes CENTRAL NERVOUS SYSTEM: No focal deficits, tone is normal in all 4 extremities. EXTREMITIES: There is no peripheral edema. No clubbing, no cyanosis. Peripheral pulses are intact. - Labs CBC & Chem 7: 12/06/24 06:18 12/06/24 06:18 Labs: Abnormal Lab Results - Last 24 Hours (Table) 12/06/24 12/06/24 Range/Units 06:18 06:18 WBC 10.19 H (4.50-10.00) 10*3/uL MPV 9.2 L (9.5-12.2) fL Immature Gran # 0.30 H (0.00-0.04) 10*3/uL Monocytes # 1.29 H (0.20-1.00) 10*3/uL BUN 25 H (7-17) mg/dL Creatinine 1.38 H (0.52-1.04) mg/dL Glucose 174 H (74-99) mg/dL Assessment and Plan Assessment: Small hemoptysis, improved Epistaxis, improved Heart failure with reduced ejection fraction of 30 to 35% Paroxysmal atrial fibrillation, anticoagulated Eliquis Severe chronic obstructive pulmonary disease, with FEV1 30% at baseline, currently maintained on Trelegy minutes inhaler Sputum culture from 11/29/2024 positive for Staph aureus ssp aureus and E. coli History of right middle lobe pulmonary nodule, measuring 1.3 cm, being followed on outpatient basis Hypertension History of hyperlipidemia History of abdominal aortic aneurysm, with previous endovascular repair Former tobacco smoker, quit over 10 years ago Plan: The patient was seen and evaluated Labs and medications reviewed No further epistaxis No further hemoptysis Anjali resumed Cleared for discharge Keep her appointment in our office as scheduled She is encouraged to call with any recurrent episodes of bleeding This patient was seen independently by the pulmonary nurse practitioner addressing pulmonary issues I have personally seen and examined the patient, performed the documentation and the assessment and plan as written. Number of minutes spent on the visit: 23 Dictation was produced using [employer] dictation software. Please excuse any grammatical, word or spelling errors.
[2024-12-11] MEDS ORDERED: NON FORMULARY DRUG (Alendronate Sodium [Fosamax] 70 MG Tablet) PO SCH (09:00)
== END 2024-12-06 14:02 | disposition home or self-care (01) ==
LOC: EC 15:37 → 6NMEDSUR 19:33
PROVIDERS: ADMIT Student in an Organized Health Care Education/Training Program; ATTEND Student in an Organized Health Care Education/Training Program
DX: R04.2 Hemoptysis (principal); R04.0 Epistaxis; N17.9 Acute kidney failure, unspecified; I11.0 Hypertensive heart disease with heart failure; I50.20 Unspecified systolic (congestive) heart failure; I48.0 Paroxysmal atrial fibrillation; J44.9 Chronic obstructive pulmonary disease, unspecified; R73.9 Hyperglycemia, unspecified; M43.8X4 Other specified deforming dorsopathies, thoracic region; K21.9 Gastro-esophageal reflux disease without esophagitis; R73.03 Prediabetes; F41.9 Anxiety disorder, unspecified; E78.5 Hyperlipidemia, unspecified; R91.1 Solitary pulmonary nodule; Z86.79 Personal history of other diseases of the circulatory system; Z87.891 Personal history of nicotine dependence; Z79.01 Long term (current) use of anticoagulants; Z79.51 Long term (current) use of inhaled steroids; Z79.82 Long term (current) use of aspirin; Z79.83 Long term (current) use of bisphosphonates; Z79.84 Long term (current) use of oral hypoglycemic drugs; Z79.899 Other long term (current) drug therapy; Z88.1 Allergy status to other antibiotic agents; Z88.2 Allergy status to sulfonamides; Z88.5 Allergy status to narcotic agent
CPT/HCPCS: 96374; 99285; 36415; 94640 ×3; 93005 ×2; 86900; 86901; 83880; 80053; 80048 ×2; 83735; 84484; 85025 ×3; 85610; 85730; 86850; 71046; 71275; G0378 ×3; J2405; J7512 ×2; Q9967

== ENCOUNTER → 2024-12-10 | Outpatient (CLI) | payer MEDICARE, OTHER ==
[2024-12-10 15:48] LABS: Anion Gap 9.60 mmol/L (4.00-12.00); BUN/Creat Ratio 18.50 Ratio (12.00-20.00); Blood Urea Nitrogen 22.2 mg/dL (9.0-27.0); Calcium 9.3 mg/dL (8.7-10.3); Carbon Dioxide 27.4 mmol/L (21.6-31.8); Chloride 107 mmol/L (96-109); Glucose 93 mg/dL (70-110); Potassium 4.6 mmol/L (3.5-5.5); Sodium 144 mmol/L (135-145)
== END | disposition home or self-care (01) ==
LOC: LABWHC1 10:12
PROVIDERS: ATTEND Student in an Organized Health Care Education/Training Program
DX: N17.9 Acute kidney failure, unspecified (principal)
CPT/HCPCS: 36415; 80048

== ENCOUNTER → 2024-12-24 | Day surgery (SDC) | payer MEDICARE, OTHER ==
[~2024-12-24] MED LIST changes: +ALPRAZolam 0.25 MG TAB PO PRN; +ALPRAZolam 0.5 MG TAB PO PRN; -LACTATED RINGERS 1,000 ML IV SCH; +NITROGLYCERIN SL TABS 0.4 MG TAB SUBLINGUAL PRN; +RX INFO: IV CONTRAST WAS GIVEN 1 EACH MISC MISCELLANE PRN; +SODIUM CHLORIDE 0.9% 1,000 ML IV SCH
[2024-12-24] MEDS: SODIUM CHLORIDE 0.9% 1,000 ML in EMPTY BAG 1 BAG IV ONE (06:20)
[2024-12-24] MEDS: ASPIRIN 325 MG TAB PO ONE (06:21)
[2024-12-24] MEDS: IV FLUID CONTINUATION 1,000 ML IV ONE (06:30)
[2024-12-24 06:51] VITALS: TEMP 98.3
[2024-12-24] MEDS: HEPARIN SODIUM,PORCINE (1 ML) 2,500 UNIT in SODIUM CHLORIDE 0.9% 250 ML IRRIGATION PRN (07:37)
[2024-12-24] MEDS: HEPARIN SODIUM,PORCINE 10,000 UNIT in SODIUM CHLORIDE 0.9% 1,000 ML IRRIGATION PRN (07:37)
[2024-12-24] MEDS: LIDOCAINE 1% INJ 10MG/ML (20 ML MDV) SQ ONE (07:55)
[2024-12-24] MEDS: MIDAZOLAM 2 MG/2 ML VIAL IVP ONE (07:56)
[2024-12-24] MEDS: fentaNYL (PF) 50 MCG/1 ML VIAL IVP ONE (07:56)
[2024-12-24] MEDS: VERAPAMIL SYRINGE (5 MG/10 ML) INTRAARTER ONE (07:59)
[2024-12-24] MEDS: HEPARIN SODIUM 1,000 UN/ML (10ML VL) IVP ONE (08:00)
[2024-12-24] MEDS: IOPAMIDOL-370 100ML BTL INJ ONE (08:15)
--- NOTE | 2024-12-24 08:24 | P.PCN ---
Date of Procedure: 12/24/24 Operative Findings: CARDIAC CATHETERIZATION PERFORMING PHYSICIAN: Robert Begum MD, RPVI PROCEDURE PERFORMED: 1. Selective right and left coronary angiogram and IFR of the LCx 2. Left heart catheterization 3. Ultrasound-guided access of the right radial artery INDICATION: Cardiomyopathy COMPLICATION: None APPROACH: Right radial artery LEVEL OF SEDATION: Moderate with a sedation length of 18 minutes PROCEDURE DESCRIPTION: After obtaining an informed consent, the patient was brought to cardiac equipment operator/laborer. Local anesthesia was performed using lidocaine subcutaneously. The right radial artery was cannulated using Seldinger technique, under ultrasound guidance, the guidewire passed easily, following that we advanced a 5-Sami sheath dilator assembly, the wire and dilator were removed and sheath was flushed. Following that, 2 mg of verapamil along with 3000 unit heparin were given. Selective right and left coronary angiogram using a 5-Sami JR4 and JL 3.5 catheters. Following that we did left heart catheterization using JR4 catheter. After that I decided to do an IFR of the LCx. After zeroing the Dobler wire and equalized between the Dobler wire and guiding catheter which was a JL 3.5 guiding catheter the left main was engaged and the IFR wire was advanced distal to the lesion in the LCx with IFR came to be at 1.00 The procedure was completed there was no complication. SELECTIVE CORONARY ANGIOGRAM: The right coronary artery: Large caliber vessel and dominant vessel appears to be angiographically normal Left main: Is angiographically normal The left circumflex: Large caliber vessel with mild to moderate disease involving the midportion documented to be nonflow-limiting by Doppler wire The left anterior descending artery: Is angiographically normal HEMODYNAMICS: The LVEDP was 12 mmHg with no significant gradient across the aortic valve CONCLUSION: 1. Mild to moderate disease involving the LCx with negative IFR 2. Normal left-sided filling pressure POSTPROCEDURE MANAGEMENT: Medical treatment
[2024-12-24 14:23] VITALS: BP 91/61; PULSE 50; RESP 16
== END ==
LOC: CATHCVL 05:41
PROVIDERS: ATTEND Internal Medicine Interventional Cardiology
DX: I25.10 Atherosclerotic heart disease of native coronary artery without angina pectoris (principal); I42.9 Cardiomyopathy, unspecified
CPT/HCPCS: 93458; 93799; C1769 ×2; C1894; C1887; J2250; J1644 ×3; J2003; Q9967; J3010